=== PATIENT | female | born 1945 | race Caucasian/White ===

== ENCOUNTER 2020-09-19 10:11 | Outpatient (REF) | payer MEDICARE, SELFPAY | END 2020-09-19 10:12 | disposition home or self-care (01) | LOC: HO.LAB 10:11 | PROVIDERS: PCP Internal Medicine; Visit Provider Internal Medicine | DX: Z20.828 Contact with and (suspected) exposure to other viral communicable diseases (principal) | CPT/HCPCS: C9803; U0003 ==

== ENCOUNTER → 2020-10-20 10:11 | Outpatient (BNVA) | payer MEDICARE, SELFPAY | PROVIDERS: PCP Internal Medicine; Visit Provider Hospitalist | DX: R91.8 Other nonspecific abnormal finding of lung field (principal); J41.8 Mixed simple and mucopurulent chronic bronchitis; J30.9 Allergic rhinitis, unspecified | CPT/HCPCS: 99212 ==

== ENCOUNTER → 2020-11-18 10:33 | Outpatient (BNVA) | payer MEDICARE, SELFPAY | PROVIDERS: PCP Internal Medicine; Visit Provider Hospitalist | DX: J44.9 Chronic obstructive pulmonary disease, unspecified (principal); R91.8 Other nonspecific abnormal finding of lung field; F51.01 Primary insomnia; Z79.899 Other long term (current) drug therapy | CPT/HCPCS: 99212 ==

== ENCOUNTER 2021-03-02 08:54 | Outpatient (REF) | payer MEDICARE, SELFPAY ==
--- NOTE | ~2021-03-02 | CT_ITS ---
EXAMINATION: CT CHEST WITHOUT CONTRAST CLINICAL INFORMATION: Other nonspecific finding lung field COMPARISON: None TECHNIQUE: Multidetector volumetric CT imaging of the chest was done. Axial MIP volume rendering provided. Sagittal and coronal reformatted images were obtained. This CT examination was performed using dose optimization techniques as appropriate, variously including the following: *Automated exposure control *Adjustment of mA and/or kV according to patient size (this includes techniques or standardized protocols for targeted exams where dose is matched to indication/reason for exam; i.e. extremities or head) *Use of iterative reconstruction technique DLP: 145 mGy-cm FINDINGS: REDUCING SYSTEM OPERATOR: Unremarkable LUNGS: There is a 2 mm left upper lobe nodule axial image 136 series 5. There is a 2 mm peripheral or subpleural superior segment left lower lobe nodule axial image 136 series 5. There is a 5 mm slightly spiculated right upper lobe nodule axial image 201 series 5. There is a 4 mm superior segment left lower lobe nodule axial image 202 series 5. There is a 3 mm right upper lobe nodule axial image 93 series 5. There is a 4 x 3 mm superior segment right lower lobe nodule axial image 195 series 5. There is a 3 x 5 mm superior segment left lower lobe nodule axial image 201 series 5. There is a 2 mm central left lower lobe nodule axial image 266 series 5. There is a 2 mm peripheral right lower lobe nodule axial image 273 series 5. There is a 3 mm peripheral left lower lobe nodule axial image 98 series 5. There is a 2 mm right lower lobe nodule axial image 310 series 5. There is a 2 mm peripheral or subpleural right lower lobe nodule axial image 331 series 5. There is a 2 mm peripheral right lower lobe nodule axial image 364 series 5. MEDIASTINUM: The heart does not appear enlarged. There is mild calcification of the thoracic aorta. Coronary artery calcification is seen. There is a small pericardial effusion. There are small mediastinal lymph nodes. PLEURA: There is no pleural effusion. No pleural mass or thickening. AXILLA: There is bilateral axillary lymphadenopathy. Lymph nodes have fatty moncho. No chest wall mass is seen. UPPER ABDOMEN: There is a 2 x 2.3 cm low-attenuation lesion in the spleen. Hounsfield units without contrast measure 22 which is not compatible with a simple cyst. OSSEOUS STRUCTURES: There are degenerative changes of the spine. There is a slight loss of height of the T12 T11 and T6 vertebral bodies questionable for mild old compression fractures. There are postsurgical changes to the left occipital humerus. CT/CT chest wo con IMPRESSION: Multiple small bilateral pulmonary nodules, largest measures 5 mm in the right upper lobe. Comparison with old outside exams if available recommended. If no exam old exams are available for comparison, chest CT follow-up in 6-12 months would be recommended. Small pericardial effusion. 2 x 2.3 cm low-attenuation lesion in the spleen not compatible with a simple cyst. Degenerative changes of the spine and several mild old compression fractures.
== END 2021-03-02 08:55 | disposition home or self-care (01) ==
LOC: HO.CT 08:54
PROVIDERS: PCP Internal Medicine; Visit Provider Hospitalist
DX: R91.8 Other nonspecific abnormal finding of lung field (principal)
CPT/HCPCS: 71250

== ENCOUNTER → 2021-05-27 10:01 | Outpatient (BNVA) | payer MEDICARE, SELFPAY | PROVIDERS: PCP Internal Medicine; Visit Provider Hospitalist | DX: J30.9 Allergic rhinitis, unspecified (principal); J41.8 Mixed simple and mucopurulent chronic bronchitis; R91.8 Other nonspecific abnormal finding of lung field; F51.01 Primary insomnia | CPT/HCPCS: 99212 ==

== ENCOUNTER → 2021-09-30 10:27 | Outpatient (BNVA) | payer MEDICARE, SELFPAY | PROVIDERS: PCP Internal Medicine; Visit Provider Hospitalist | DX: J41.8 Mixed simple and mucopurulent chronic bronchitis (principal); R91.8 Other nonspecific abnormal finding of lung field; J30.9 Allergic rhinitis, unspecified; F51.01 Primary insomnia | CPT/HCPCS: 99212 ==

== ENCOUNTER 2021-11-24 09:48 | Outpatient (REF) | payer MEDICARE, SELFPAY ==
--- NOTE | ~2021-11-24 | CT_ITS ---
EXAMINATION: CT CHEST WITHOUT CONTRAST CLINICAL INFORMATION: Follow-up pulmonary nodules COMPARISON: Previous chest CT February 2021 TECHNIQUE: Multidetector volumetric CT imaging of the chest was done. Axial MIP volume rendering provided. Sagittal and coronal reformatted images were obtained. This CT examination was performed using dose optimization techniques as appropriate, variously including the following: *Automated exposure control *Adjustment of mA and/or kV according to patient size (this includes techniques or standardized protocols for targeted exams where dose is matched to indication/reason for exam; i.e. extremities or head) *Use of iterative reconstruction technique DLP: 134 mGy-cm FINDINGS: TRAVEL REGISTERED NURSE NICU: LUNGS: There are multiple small pulmonary nodules. These appear stable from February 2021 exam. Largest right pulmonary nodule measures 5 x 7 mm in the right upper lobe axial image 156 series 6.. Largest left pulmonary nodule measures 3 x 6 mm axial image 155 series 6. No new pulmonary nodule is seen. MEDIASTINUM: There is evidence of atherosclerotic disease. The heart does not appear enlarged. There is interval decrease in the small pericardial effusion. There are no enlarged hilar or mediastinal lymph nodes. PLEURA: There is no pleural effusion. No pleural mass or thickening. AXILLA: There is bilateral axillary lymphadenopathy that appears unchanged. No chest wall mass is seen. UPPER ABDOMEN: 2 x 2.3 cm low-attenuation lesion in the spleen is unchanged. OSSEOUS STRUCTURES: There are degenerative changes of the spine. There is slight loss of height of several lower and mid thoracic vertebral bodies that appear suggestive of mild old compression fractures that appear unchanged. There are degenerative changes at the shoulders. CT/CT chest wo con IMPRESSION: Stable bilateral pulmonary nodules from February 2021 exam. Fleischner guidelines were followed.
== END 2021-11-24 09:49 | disposition home or self-care (01) ==
LOC: HO.CT 09:48
PROVIDERS: PCP Internal Medicine; Visit Provider Hospitalist
DX: R91.8 Other nonspecific abnormal finding of lung field (principal)
CPT/HCPCS: 71250

== ENCOUNTER → 2021-11-29 10:30 | Outpatient (BNVA) | payer MEDICARE, SELFPAY | PROVIDERS: PCP Internal Medicine; Visit Provider Hospitalist | DX: J41.1 Mucopurulent chronic bronchitis (principal); R91.8 Other nonspecific abnormal finding of lung field; J30.9 Allergic rhinitis, unspecified; F51.01 Primary insomnia | CPT/HCPCS: 99212 ==

== ENCOUNTER → 2022-03-29 09:39 | Outpatient (BNVA) | payer MEDICARE, SELFPAY | PROVIDERS: PCP Internal Medicine; Visit Provider Hospitalist | DX: J41.1 Mucopurulent chronic bronchitis (principal); J30.9 Allergic rhinitis, unspecified; R91.8 Other nonspecific abnormal finding of lung field; F51.01 Primary insomnia; Z79.899 Other long term (current) drug therapy | CPT/HCPCS: 99212 ==

== ENCOUNTER 2022-09-02 07:48 | Outpatient (REF) | payer MEDICARE, SELFPAY ==
[2022-09-01 14:34] LABS: Anion Gap 16 (12-20); Blood Urea Nitrogen 13 mg/dL (9-16); Calcium 9.8 mg/dL (8.4-10.2); Carbon Dioxide 30 mmol/L (22-29); Chloride 100 mmol/L (96-108); Estimated Glomerular Filt Rate > 60; Glucose Random 113 mg/dL (60-115); Potassium 3.6 mmol/L (3.3-5.1); Sodium 142 mmol/L (135-145)
--- NOTE | ~2022-09-02 | CT_ITS ---
EXAMINATION: CT CHEST WITH CONTRAST CLINICAL INFORMATION: Pulmonary nodule COMPARISON: CT chest 11/24/2021 TECHNIQUE: Multidetector volumetric CT imaging of the chest was obtained after the administration of 50 mL of Omnipaque 350 intravenous contrast without immediate adverse reactions. Axial MIP volume rendering provided. Sagittal and coronal reformatted images were obtained. This CT examination was performed using dose optimization techniques as appropriate, variously including the following: *Automated exposure control *Adjustment of mA and/or kV according to patient size (this includes techniques or standardized protocols for targeted exams where dose is matched to indication/reason for exam; i.e. extremities or head) *Use of iterative reconstruction technique DLP: 134 mGy-cm FINDINGS: AUTOMATIC WHEEL LINE OPERATOR: Unremarkable. LUNGS: The lungs are well-expanded with multiple pulmonary nodules. The largest) nodule measures 7 mm on axial image 57/9 and largest nodule in the left lower lobe measures 6 mm on axial image 65/9. Both these nodules are stable. Largest nodule right lower lobe measures 6 mm on axial image 88/9. It is stable as well. There are no new nodules seen. MEDIASTINUM: The thyroid lobes are asymmetrical right lateral left but otherwise unremarkable. The central trachea and the bronchi widely patent. The heart size and great vessels are normal caliber. PLEURA: There is no pleural effusion. No pleural mass or thickening. AXILLA: There are small shotty lymph nodes in the axilla. The chest wall is unremarkable. UPPER ABDOMEN: The liver is diffusely attenuated but normal size. There is no intrahepatic or extrahepatic ductal dilatation. The pancreas unremarkable. There is a 2.4 cm low-attenuation lesion in spleen, stable. OSSEOUS STRUCTURES: There is exaggerated thoracic kyphosis with moderate spondylosis lower dorsal spine. No aggressive lytic or sclerotic process seen.. CT/CT chest w IV con IMPRESSION: 1. Multiple bilateral pulmonary nodules are stable. No new nodules seen. 2. No abnormal mediastinal or axillary lymph nodes seen. Fleischner guidelines were followed.
== END 2022-09-02 07:49 | disposition home or self-care (01) ==
LOC: HO.CT 07:48
PROVIDERS: Visit Provider Hospitalist
DX: R91.8 Other nonspecific abnormal finding of lung field (principal)
CPT/HCPCS: 36415; 71260; 80048; Q9967

== ENCOUNTER 2022-11-16 09:44 | Outpatient (REF) | payer MEDICARE, SELFPAY ==
--- NOTE | ~2022-11-16 | CT_ITS ---
EXAMINATION: CT CHEST WITHOUT CONTRAST CLINICAL INFORMATION: Follow-up pulmonary nodules. COMPARISON: Prior chest CT examinations as remote as 03/03/2021. TECHNIQUE: Multidetector volumetric CT imaging of the chest was done. Axial MIP volume rendering provided. Sagittal and coronal reformatted images were obtained. This CT examination was performed using dose optimization techniques as appropriate, variously including the following: *Automated exposure control *Adjustment of mA and/or kV according to patient size (this includes techniques or standardized protocols for targeted exams where dose is matched to indication/reason for exam; i.e. extremities or head) *Use of iterative reconstruction technique DLP: 139 mGy-cm FINDINGS: BAR CAPTAIN: The lungs are symmetrically well-expanded and grossly clear. LUNGS: Multiple bilateral pulmonary noncalcified nodules are redemonstrated. The largest within the right upper lobe is situated in the posterior segment laterally (5:159), measuring 6 mm. The largest nodule within the right middle lobe is situated within the medial segment (5:354), measuring 4 mm. The largest nodule within the right lower lobe is situated within the superior segment (5:256), measuring 6 mm. The largest nodule within the left upper lobe is situated laterally (2:111), measuring 5 mm. The largest nodule situated within the left lower lobe is seen within the superior segment (5:179), measuring 6 mm. Overall, these nodules are stable from prior CT examinations as remote as 03/02/2021. No new nodule, mass, infiltrate or groundglass opacity is seen. There is no generalized increase in peripheral interlobular septal markings. No bleb or bullous formation is seen. There is mild focal scar/subsegmental atelectasis at the medial right base. No small airway thickening is seen. The central airways appear patent. MEDIASTINUM: The thyroid is unremarkable. No sizable mediastinal or hilar lymphadenopathy is seen. There is no thoracic aortic aneurysm. There are atherosclerotic calcifications of the great vessel origins and thoracic aorta. CORONARY ARTERY CALCIFICATION: None visualized on this study. PLEURA: There is no pleural effusion. No pleural mass or thickening. AXILLA: No lymphadenopathy. UPPER ABDOMEN: Unremarkable. OSSEOUS STRUCTURES: There is multi-level thoracic spondylosis. There is a mild T11 anterior wedge compression fracture again seen. No acute or aggressive osseous abnormality is seen. A sclerotic, well marginated bone island is seen within the anterior left fifth rib. There is an old, healed right fifth rib fracture. No acute or aggressive osseous abnormality is seen. CT/CT chest wo IV con IMPRESSION: 1. There is a continued stable appearance from 03/02/2021 of multiple bilateral noncalcified pulmonary nodules, the largest nodules bilaterally measure 6 months. According to the UPDATED 2017 Fleischner Society recommendations, the advised follow-up imaging for multiple solid nodules, the largest measuring 6 mm or greater, is: LOW RISK PATIENT: CT at 3-6 months, then consider CT at 18-24 months. HIGH RISK PATIENT: CT at 3-6 months, then at 18-24 months. 2. No new nodule, mass, infiltrate or groundglass opacity is seen. 3. There is no thoracic lymphadenopathy or pleural effusion. 4. There are multi-level degenerative changes of the spine. No aggressive osseous lesion is seen. Fleischner guidelines were followed.
== END 2022-11-16 09:45 | disposition home or self-care (01) ==
LOC: HO.CT 09:44
PROVIDERS: PCP Internal Medicine; Visit Provider Hospitalist
DX: R91.8 Other nonspecific abnormal finding of lung field (principal)
CPT/HCPCS: 71250

== ENCOUNTER → 2022-11-29 10:01 | Outpatient (BNVA) | payer MEDICARE, SELFPAY | PROVIDERS: PCP Internal Medicine; Visit Provider Hospitalist | DX: J44.0 Chronic obstructive pulmonary disease with (acute) lower respiratory infection (principal); J30.9 Allergic rhinitis, unspecified; R91.8 Other nonspecific abnormal finding of lung field; F51.01 Primary insomnia | CPT/HCPCS: 99212 ==

== ENCOUNTER → 2023-01-09 10:13 | Outpatient (REF) | payer MEDICARE, SELFPAY ==
--- NOTE | 2023-01-09 10:58 | ECG_ITS ---
Test Reason : copd Blood Pressure : / mmHG Vent. Rate : 098 BPM Atrial Rate : 098 BPM P-R Int : 174 ms QRS Dur : 102 ms QT Int : 360 ms P-R-T Axes : 064 -31 071 degrees QTc Int : 459 ms Normal sinus rhythm Left axis deviation Minimal voltage criteria for LVH, may be normal variant ( [place] product ) Abnormal ECG No previous ECGs available Referred By: Oleg Cline Electronically Signed By:SANJIV NEVES
== END ==
LOC: HO.CARD 10:13
PROVIDERS: PCP Internal Medicine; Visit Provider Hospitalist
DX: J44.9 Chronic obstructive pulmonary disease, unspecified (principal)
CPT/HCPCS: 93005; 99212

== ENCOUNTER 2023-05-16 15:22 | Outpatient (AMB) | payer MEDICARE, MEDICAID, SELFPAY ==
[2023-05-16 15:48] VITALS: PULSE 89; O2SAT 96; BMI 32.9
--- NOTE | 2023-05-16 15:48 | A.OFFVIS_ITS ---
Intake Vital Signs 05/16/23 15:48 Height 5 ft 1 in Weight 174 lb BMI 32.9 Pulse 89 Pulse Source Pulse Oximeter Pulse Oximetry (%) 96 Oxygen Delivery Method Room Air Intake Visit Reasons: productive cough Lace Machine Operator Required: No Allergies doxycycline Allergy (Severe, Verified 05/16/23 15:50) GI Upset Demerol Allergy (Severe, Uncoded 05/16/23 15:50) vomitting Meperidine Allergy (Severe, Uncoded 05/16/23 15:50) Dry Mouth HPI HPI Comments History of Present Illness Details The patient is a 77-year-old woman with known chronic bronchitis in addition to reflux disease and chronic pain issues. Overall she has been doing fairly well on it current respiratory regimen. She has been able to stay healthy and stay off prednisone. She has been using the azithromycin Monday and Monday. Usually 250 mg. Sometimes when she gets sick we do increased to 500. Patient understands that the medication get effect her EKG and assess her QT. Therefore, during the next visit will have to check her EKG. She continues using Daliresp. Denies any GI symptoms from the medication. She continues her respiratory therapy. She has not had to take any prednisone. She did have a CT chest back in 03/2019 with numerous pulmonary nodules. 11/29/2022 the patient is here for a pulmonary follow-up visit. She has been complaining of a worsening productive cough now for the last few months. She was seen by primary care doctor who prescribed her prednisone and she did feel better. The the patient is coughing up some thick tenacious sticky mucus which appears to be grayish in color. She does have a sputum cup in order to sent for culture but she has been able to colic 1 appropriately. She keeps coughing up into tissue paper. The patient also did undergo a CT scan of the chest that was personally reviewed by me. She just had a couple weeks ago. Her pulmonary nodules continue to be stable. She does have evidence of chronic bronchitis consistent with her productive mucus it is primarily in the lower lung zones. Appears to be left more than right. Will go ahead and treat her with Levaquin in order to cover enteric organisms. Also, she can also start a new course of prednisone. The patient has not been using her nebulizer. She understands the nebulizer will provide her with good chest physical therapy. I am also going to request an Acapella valve for her for mucus clearance and pulmonary hygiene. If the patient is not better then getting a sputum sample be helpful. Otherwise we did talk about briefly about bronchoscopy to further address the airways get some deep cultures. She would like to hold off on any semi invasive procedures at this time. 01/09/2023 the patient is here for a pulmonary follow-up visit. She is feeling better overall. She still has a cough. Typically productive. She completed the prednisone also the Levaquin. She is back on the azithromycin 3 times a week. Will keep her on the 500 mg 3 times a week. Although, she needs to get an EKG to make sure that her QT is within normal limits. She continues with respiratory therapy. Her exam is reassuring. In addition to that her CT scan is also reassuring with stable pulmonary nodules. No evidence of any airspace disease. It is likely that a lot of her secretions are from the sinuses. Therefore we talked about starting sinus rinses and also using nasal sprays. The patient also has having significant daytime drowsiness. She has not been using her CPAP. She has had history CPAP in the past. Her daytime drowsiness is significant with an [place] score 12/24. Will go ahead and request a sleep study but will wait to when she comes back in 6 months to order. If the patient worsens prior to that and she was been to all the sleep study I will do that at an earlier time. 05/16/2023 the patient is here for a sick visit. She has been having worsening respiratory symptoms and wheezing. She was back here in December and during that time she did have significant chest tightness and wheezing and she did require steroids. she did find the prednisone down when she came off the prednisone again she had symptoms she went to her primary care doctor started another course of prednisone. Now she is back she still has a worsening respiratory symptoms and cough. She has been doing the nebulizer regularly in addition to this has been using her rescue therapy. She has been using her maintenance therapy only with minimal improvement. She has also been on the azithromycin. The patient does have a history of asthma. Will go ahead and test her allergy in eosinophilic level to see if there is a different alternative therapy that we can provide her. In the meantime the patient will need additional prednisone as she is significantly wheezy P she did have a CT scan back in November which we personally reviewed demonstrating stable pulmonary nodules. Therefore, hold off on additional imaging at this point unless she worsens or does not improve will go ahead and get another x-ray. The patient will undergo allergy testing will follow-up in 3-4 weeks to see if we can provide a biologic therapies if she specially if she is not any better. [facility] Medical History (Updated 05/16/23 @ 21:11 by Oleg Cline MD) Asthma Chronic allergic rhinitis COPD (chronic obstructive pulmonary disease) Insomnia Pulmonary nodules Social History (Updated 11/29/21 @ 10:41 by JAZZMINE Walters) Patient Tobacco Use Status: Former Tobacco user Tobacco use type: Cigarette Years Smoked: 45 Years Review of Systems Const Reports fatigue and Denies night sweats ENT Denies change in voice, Denies lip swelling, Denies mouth pain, Reports nasal congestion, Reports nasal discharge, Reports post nasal drip and Denies tongue swelling Card Denies chest pain, Reports dyspnea and Reports dyspnea on exertion Resp Denies change in phlegm color, Reports chest congestion, Reports cough, Denies hemoptysis, Reports dyspnea, Reports dyspnea on exertion and Reports wheezing GI Denies abdominal pain Musc Denies no additional complaints, Reports muscle weakness and Reports numbness Neuro Denies Neuro-related abnormal movements and Reports numbness Psych Denies no additional complaints Endo Reports fatigue Harman/Lymph Denies easy bleeding and Denies lymphadenopathy Aller/Immun Denies lip swelling, Denies tongue swelling and Reports wheezing Physical Exam Vital Signs: Last Vital Signs Pulse 89 05/16/23 15:48 Pulse Ox 96 05/16/23 15:48 Oxygen Delivery Method Room Air 05/16/23 15:48 BMI result Body Mass Index 32.9 Const General: alert and tired appearing HEENT General nose exam: Abnormal mucous membranes and turbinates present erythematous and other (papules) Eyes Pupils: Equal, round and reactive pupils present Neck Neck: Yes normal visual inspection, Yes full ROM and Yes no lymphadenopathy Chest Chest palpation & inspection: normal inspection of the chest Resp Auscultation: no rhonchi, wheezes and diminished lung sounds Cardio Rate: regular rate Rhythm: regular rhythm Heart sounds: S1 normal heart sound present and S2 normal heart sound present GI Palpation (GI): Soft to palpation and nontender Auscultation: normal bowel sounds General: Yes no CVA tenderness Back/Spine/Pelvis Back: no CVA tenderness Skin General skin exam: rashes and/or lesions noted Neuro Cranial nerves: Yes Equal, round and reactive pupils present Assessment & Plan Assessment & Plan (1) Asthma: Code(s): J45.909 - Unspecified asthma, uncomplicated Qualifiers: Asthma severity: severe Asthma persistence: persistent Asthma complication type: with acute exacerbation Qualified Code(s): J45.51 - Severe persistent asthma with (acute) exacerbation (2) COPD (chronic obstructive pulmonary disease): Code(s): J44.9 - Chronic obstructive pulmonary disease, unspecified Qualifiers: COPD type: COPD with acute lower respiratory infection Qualified Code(s): J44.0 - Chronic obstructive pulmonary disease with (acute) lower respiratory infection (3) Chronic allergic rhinitis: Code(s): J30.9 - Allergic rhinitis, unspecified (4) Pulmonary nodules: Code(s): R91.8 - Other nonspecific abnormal finding of lung field (5) Insomnia: Code(s): G47.00 - Insomnia, unspecified Qualifiers: Insomnia type: primary Qualified Code(s): F51.01 - Primary insomnia Plan nebulizer 2 times a day Add BUdeonide 0.5mg BID Restrat Prednisone Bloodwork and allergy testing, may benifit from biologic therapy requesting acapella valve for CPT Continue Symbicort and Spiriva, Also can try Trelegy 200mcg nasal rinsing Fluticasone nasal spray STEPAN as needed short-acting beta agonist as needed holding Azithromycin 500mg M/W/, will get EKG start Augmentin repeat CT scan of the chest in 11/2023 F/U 4-6 weeks Orders: Orders Rast Allergen Today J30.9 - Allergic rhinitis, unspecified, J45.909 - Unspecified asthma, uncomplicated Basic Metabolic Panel Today J30.9 - Allergic rhinitis, unspecified, J45.909 - Unspecified asthma, uncomplicated Complete Blood Count Auto Diff Today J30.9 - Allergic rhinitis, unspecified, J45.909 - Unspecified asthma, uncomplicated Hypersensitive Pneumonitis Prf Today J30.9 - Allergic rhinitis, unspecified, J45.909 - Unspecified asthma, uncomplicated, R91.8 - Other nonspecific abnormal finding of lung field Immunoglobulin E Today J30.9 - Allergic rhinitis, unspecified, J45.909 - Unspecified asthma, uncomplicated Immunoglobulins,IgG IgA IgM Today J30.9 - Allergic rhinitis, unspecified, J45.909 - Unspecified asthma, uncomplicated Medications: New amoxicillin-pot clavulanate 875-125 mg 1 tab PO BID 10 days 20 tabs 0RF prednisone PO daily; Take 2 tabs daily x 10 days, then 1 tab daily x 10 days, then 1 tab every other day x 20 days 40 days 40 tabs 0RF Coding Level of Care Code Est Pt Level 5 (89793) Diagnoses Asthma J45.51 Asthma severity: severe Asthma persistence: persistent Asthma complication type: with acute exacerbation COPD (chronic obstructive pulmonary disease) J44.0 COPD type: COPD with acute lower respiratory infection Chronic allergic rhinitis J30.9 Pulmonary nodules R91.8 Insomnia F51.01 Insomnia type: primary Time Spent (min) 45
== END 2023-05-16 16:14 | disposition home or self-care (01) ==
PROVIDERS: PCP Internal Medicine; Visit Provider Hospitalist
DX: J45.51 Severe persistent asthma with (acute) exacerbation (principal); R91.8 Other nonspecific abnormal finding of lung field; F51.01 Primary insomnia
CPT/HCPCS: 99215

== ENCOUNTER 2023-05-16 15:22 | Outpatient (REF) | payer MEDICARE, MEDICAID, SELFPAY ==
[2023-05-16 16:33] LABS: MANUAL DIFF FLAG NO
[2023-05-16 18:00] LABS: Basophils Absolute Auto 0.1 X10*3/uL (0.0-0.2); Basophils Percent Auto 0.9 % (0-2); Eosinophils Absolute Auto 0.5 X10*3/uL (0.0-0.4); Eosinophils Percent Auto 7.1 % (0-4); Hematocrit 41.6 % (37.0-47.0); Hemoglobin 13.9 g/dl (12.0-16.0); Imm Gran Abs Auto 0.03 X10*3/uL (0.00-0.03); Imm Gran Pct Auto 0.5 % (0.0-0.4); Lymphocytes Absolute Auto 1.8 X10*3/uL (1.2-4.9); Lymphocytes Percent Auto 26.5 % (20-40); Mean Corpuscular HGB Conc 33.4 g/dl (31.0-35.0); Mean Corpuscular Hemoglobin 28.7 pg (27.0-33.0); Mean Platelet Volume 10.2 fL (9.4-12.3); Monocytes Absolute Auto 0.5 X10*3/uL (0.1-1.2); Monocytes Percent Auto 8.1 % (2-11); Neutrophils Absolute Auto 3.8 x10*3/uL (2.0-8.3); Neutrophils Percent Auto 56.9 % (45-73); Platelet Count 280 X10*3/uL (160-400); Red Blood Count 4.84 X10*6/uL (4.20-5.50); Red Cell Distribution Width 13.1 % (11.0-16.0); White Blood Count 6.6 X10*3/uL (4.8-10.8)
[2023-05-16 18:44] LABS: Anion Gap 17 (12-20); Blood Urea Nitrogen 8 mg/dL (9-16); Calcium 10.1 mg/dL (8.4-10.2); Carbon Dioxide 31 mmol/L (22-29); Chloride 99 mmol/L (96-108); Estimated Glomerular Filt Rate > 60; Glucose Random 79 mg/dL (60-115); Potassium 3.3 mmol/L (3.3-5.1); Sodium 144 mmol/L (135-145)
[2023-05-19 07:32] LABS: Immunoglobulin E 17 kU/L (<OR=114)
[2023-05-22 15:43] LABS: IgA 177 mg/dL (70-320); IgG 661 mg/dL (600-1540); IgM 83 mg/dL (50-300)
[2023-05-25 14:33] LABS: Asperg fumigatus Precip Abs NEGATIVE (NEGATIVE); Micropoly faeni Abs NEGATIVE (NEGATIVE); Pigeon serum Abs NEGATIVE (NEGATIVE); Saccharo pora viridis Abs NEGATIVE (NEGATIVE); Thermo candidus Abs NEGATIVE (NEGATIVE); Thermoa vulgaris #1 NEGATIVE (NEGATIVE)
== END 2023-05-16 15:23 | disposition home or self-care (01) ==
LOC: HO.LAB 15:22
PROVIDERS: PCP Internal Medicine; Visit Provider Hospitalist
DX: J45.51 Severe persistent asthma with (acute) exacerbation (principal); J44.0 Chronic obstructive pulmonary disease with (acute) lower respiratory infection; J30.9 Allergic rhinitis, unspecified; R91.8 Other nonspecific abnormal finding of lung field; F51.01 Primary insomnia
CPT/HCPCS: 36415; 80048; 82784; 82785; 85025; 86003; 86331; 86606; 86609; 99212

== ENCOUNTER 2023-06-22 10:06 | Outpatient (AMB) | payer MEDICARE, MEDICAID, SELFPAY ==
[2023-06-22 10:32] VITALS: PULSE 73; O2SAT 93; BMI 34.8
--- NOTE | 2023-06-22 10:32 | A.OFFVIS_ITS ---
Intake Vital Signs 06/22/23 10:32 Height 5 ft 1 in Weight 184 lb BMI 34.8 Pulse 73 Pulse Source Pulse Oximeter Pulse Oximetry (%) 93 Oxygen Delivery Method Room Air Intake Visit Reasons: productive cough Allergies doxycycline Allergy (Severe, Verified 06/22/23 10:33) GI Upset Demerol Allergy (Severe, Uncoded 06/22/23 10:33) vomitting Meperidine Allergy (Severe, Uncoded 06/22/23 10:33) Dry Mouth HPI HPI Comments History of Present Illness Details The patient is a 77-year-old woman with known chronic bronchitis in addition to reflux disease and chronic pain issues. Overall she has been doing fairly well on it current respiratory regimen. She has been able to stay healthy and stay off prednisone. She has been using the azithromycin Monday and Monday. Usually 250 mg. Sometimes when she gets sick we do increased to 500. Patient understands that the medication get effect her EKG and assess her QT. Therefore, during the next visit will have to check her EKG. She continues using Daliresp. Denies any GI symptoms from the medication. She continues her respiratory therapy. She has not had to take any prednisone. She did have a CT chest back in 03/2019 with numerous pulmonary nodules. 11/29/2022 the patient is here for a pulmonary follow-up visit. She has been complaining of a worsening productive cough now for the last few months. She was seen by primary care doctor who prescribed her prednisone and she did feel better. The the patient is coughing up some thick tenacious sticky mucus which appears to be grayish in color. She does have a sputum cup in order to sent for culture but she has been able to colic 1 appropriately. She keeps coughing up into tissue paper. The patient also did undergo a CT scan of the chest that was personally reviewed by me. She just had a couple weeks ago. Her pulmonary nodules continue to be stable. She does have evidence of chronic b ronchitis consistent with her productive mucus it is primarily in the lower lung zones. Appears to be left more than right. Will go ahead and treat her with Levaquin in order to cover enteric organisms. Also, she can also start a new course of prednisone. The patient has not been using her nebulizer. She understands the nebulizer will provide her with good chest physical therapy. I am also going to request an Acapella valve for her for mucus clearance and pulmonary hygiene. If the patient is not better then getting a sputum sample be helpful. Otherwise we did talk about briefly about bronchoscopy to further address the airways get some deep cultures. She would like to hold off on any semi invasive procedures at this time. 01/09/2023 the patient is here for a pulmonary follow-up visit. She is feeling better overall. She still has a cough. Typically productive. She completed the prednisone also the Levaquin. She is back on the azithromycin 3 times a week. Will keep her on the 500 mg 3 times a week. Although, she needs to get an EKG to make sure that her QT is within normal limits. She continues with respiratory therapy. Her exam is reassuring. In addition to that her CT scan is also reassuring with stable pulmonary nodules. No evidence of any airspace disease. It is likely that a lot of her secretions are from the sinuses. Therefore we talked about starting sinus rinses and also using nasal sprays. The patient also has having significant daytime drowsiness. She has not been using her CPAP. She has had history CPAP in the past. Her daytime drowsiness is significant with an Clarissa score 12/24. Will go ahead and request a sleep study but will wait to when she comes back in 6 months to order. If the patient worsens prior to that and she was been to all the sleep study I will do that at an earlier time. 05/16/2023 the patient is here for a sick visit. She has been having worsening respiratory symptoms and wheezing. She was back here in December and during that time she did have significant chest tightness and wheezing and she did require steroids. she did find the prednisone down when she came off the prednisone again she had symptoms she went to her primary care doctor started another course of prednisone. Now she is back she still has a worsening respiratory symptoms and cough. She has been doing the nebulizer regularly in addition to this has been using her rescue therapy. She has been using her maintenance therapy only with minimal improvement. She has also been on the azithromycin. The patient does have a history of asthma. Will go ahead and test her allergy in eosinophilic level to see if there is a different alternative therapy that we can provide her. In the meantime the patient will need additional prednisone as she is significantly wheezy P she did have a CT scan back in November which we personally reviewed demonstrating stable pulmonary nodules. Therefore, hold off on additional imaging at this point unless she worsens or does not improve will go ahead and get another x-ray. The patient will undergo allergy testing will follow-up in 3-4 weeks to see if we can provide a biologic therapies if she specially if she is not any better. 06/22/2023 the patient is here for pulmonary follow-up visit. She continues to struggle with her asthma. Significant wheezing. Her symptoms have been worse at nighttime. She typically needs to get up a few times a night to give her some albuterol either via inhaler or nebulizer. The patient also has been using her respiratory medications with good adherence. She still continues to be on prednisone off and on because of severe symptoms. Currently she is on 10 mg every other day and has been having significant wheezing. On examination is noted that she has diffuse inspiratory and expiratory wheezing with a prolonged expiratory phase. The patient will need additional prednisone. I will increase it to 10 mg daily. I am hopeful that we can find the lowest most effective dose until we can get her stable. We did review her allergy testing. She does have significant eosinophilia. The patient has an asthma eosinophilic phenotype. The patient will benefit from biologic therapy at this time. Based on the fact that her IgE level is within normal limits will treat her with an IL 5 inhibitor such as Fasenra. Will request from that the specialty pharmacy. The patient also will start Trelegy inhaler to see if this provides more broader coverage. Although this may be expensive for her. She is also going to continue with the nebulized therapy. With the additional prednisone the patient will also continue the budesonide but I am hopeful that when she starts biologics we can start cutting down on the inhaled steroids and systemic steroids. [facility] Medical History (Updated 05/16/23 @ 21:11 by Oleg Cline MD) Asthma Insomnia Chronic allergic rhinitis COPD (chronic obstructive pulmonary disease) Pulmonary nodules Social History (Updated 11/29/21 @ 10:41 by JAZZMINE Walters) Patient Tobacco Use Status: Former Tobacco user Tobacco use type: Cigarette Years Smoked: 45 Years Review of Systems Const Reports fatigue and Denies night sweats ENT Denies change in voice, Denies lip swelling, Denies mouth pain, Reports nasal congestion, Reports nasal discharge, Reports post nasal drip and Denies tongue swelling Card Denies chest pain, Reports dyspnea and Reports dyspnea on exertion Resp Denies change in phlegm color, Reports chest congestion, Reports cough, Denies hemoptysis, Reports dyspnea, Reports dyspnea on exertion and Reports wheezing GI Denies abdominal pain Musc Denies no additional complaints, Reports muscle weakness and Reports numbness Neuro Denies Neuro-related abnormal movements and Reports numbness Psych Denies no additional complaints Endo Reports fatigue Harman/Lymph Denies easy bleeding and Denies lymphadenopathy Aller/Immun Denies lip swelling, Denies tongue swelling and Reports wheezing Physical Exam Vital Signs: Last Vital Signs Pulse 73 06/22/23 10:32 Pulse Ox 93 06/22/23 10:32 Oxygen Delivery Method Room Air 06/22/23 10:32 BMI result Body Mass Index 34.8 Const General: alert and tired appearing HEENT General nose exam: Abnormal mucous membranes and turbinates present erythematous and other (papules) Eyes Pupils: Equal, round and reactive pupils present Neck Neck: Yes normal visual inspection, Yes full ROM and Yes no lymphadenopathy Chest Chest palpation & inspection: normal inspection of the chest Resp Effort & Inspection: prolonged expiratory phase Auscultation: no rhonchi, wheezes and diminished lung sounds Cardio Rate: regular rate Rhythm: regular rhythm Heart sounds: S1 normal heart sound present and S2 normal heart sound present GI Palpation (GI): Soft to palpation and nontender Auscultation: normal bowel sounds General: Yes no CVA tenderness Back/Spine/Pelvis Back: no CVA tenderness Skin General skin exam: rashes and/or lesions noted Neuro Cranial nerves: Yes Equal, round and reactive pupils present Assessment & Plan Assessment & Plan (1) Asthma: Code(s): J45.909 - Unspecified asthma, uncomplicated Qualifiers: Asthma complication type: with acute exacerbation Asthma persistence: persistent Asthma severity: severe Qualified Code(s): J45.51 - Severe persistent asthma with (acute) exacerbation (2) COPD (chronic obstructive pulmonary disease): Code(s): J44.9 - Chronic obstructive pulmonary disease, unspecified Qualifiers: COPD type: COPD with acute lower respiratory infection Qualified Code(s): J44.0 - Chronic obstructive pulmonary disease with (acute) lower respiratory infection (3) Chronic allergic rhinitis: Code(s): J30.9 - Allergic rhinitis, unspecified (4) Pulmonary nodules: Code(s): R91.8 - Other nonspecific abnormal finding of lung field (5) Insomnia: Code(s): G47.00 - Insomnia, unspecified Qualifiers: Insomnia type: primary Qualified Code(s): F51.01 - Primary insomnia Plan nebulizer 2 times a day continue BUdeonide 0.5mg BID increase Prednisone 10mg daily start fasenra requesting acapella valve for CPT stop Symbicort and Spiriva start Trelegy 200mcg nasal rinsing Fluticasone nasal spray STEPAN as needed short-acting beta agonist as needed holding Azithromycin 500mg M/W/F repeat CT scan of the chest in 11/2023 F/U 8-12 weeks Medications: New codeine-guaifenesin 10-100 mg/5 mL 10 mL PO Q6H 10 days PRN 300 mL 0RF cough pipxnvftfut-ktcnygopg-uekitqvu 200-62.5-25 mcg (Trelegy Ellipta) 1 inh inhalation DAILY 30 days 60 ea 12RF prednisone 20 mg (2 x 10 mg) PO DAILY 30 days 60 tabs 2RF Coding Level of Care Code Est Pt Level 4 (77899) Diagnoses Severe persistent asthma with acute exacerbation J45.51 Asthma complication type: with acute exacerbation Asthma persistence: persistent Asthma severity: severe Chronic obstructive pulmonary disease with acute lower respiratory infection J44.0 COPD type: COPD with acute lower respiratory infection Chronic allergic rhinitis J30.9 Pulmonary nodules R91.8 Primary insomnia F51.01 Insomnia type: primary Time Spent (min) 18
== END 2023-06-22 10:56 | disposition home or self-care (01) ==
PROVIDERS: PCP Internal Medicine; Visit Provider Hospitalist
DX: J45.51 Severe persistent asthma with (acute) exacerbation (principal); J44.0 Chronic obstructive pulmonary disease with (acute) lower respiratory infection; J30.9 Allergic rhinitis, unspecified; R91.8 Other nonspecific abnormal finding of lung field; F51.01 Primary insomnia
CPT/HCPCS: 99214

== ENCOUNTER → 2023-06-22 10:06 | Outpatient (BNVA) | payer MEDICARE, MEDICAID, SELFPAY | PROVIDERS: PCP Internal Medicine; Visit Provider Hospitalist | DX: J45.51 Severe persistent asthma with (acute) exacerbation (principal); J44.0 Chronic obstructive pulmonary disease with (acute) lower respiratory infection; R91.8 Other nonspecific abnormal finding of lung field; G47.00 Insomnia, unspecified; F51.01 Primary insomnia; Z79.52 Long term (current) use of systemic steroids | CPT/HCPCS: 99212 ==

== ENCOUNTER 2023-08-02 08:43 | Outpatient (REF) | payer MEDICARE, MEDICAID, SELFPAY | END 2023-08-02 08:44 | disposition home or self-care (01) | LOC: HO.MDS 08:43 | PROVIDERS: Visit Provider Hospitalist | DX: J45.50 Severe persistent asthma, uncomplicated (principal) | CPT/HCPCS: 96372 ==

== ENCOUNTER 2023-08-29 08:25 | Outpatient (REF) | payer MEDICARE, MEDICAID, SELFPAY | END 2023-08-29 08:26 | disposition home or self-care (01) | LOC: HO.MDS 08:25 | PROVIDERS: Visit Provider Hospitalist | DX: J45.50 Severe persistent asthma, uncomplicated (principal) | CPT/HCPCS: 96372 ==

== ENCOUNTER 2023-09-04 10:20 | Outpatient (AMB) | payer MEDICARE, MEDICAID, SELFPAY ==
--- NOTE | 2023-09-04 10:26 | A.OFFVIS_ITS ---
Intake Vital Signs 09/04/23 10:29 Height 5 ft 1 in Weight 188 lb 7.924 oz BMI 35.6 BP 138/90 H Blood Pressure Location Rt brachial Position Sitting Pulse 109 H Pulse Source Doppler Pulse Oximetry (%) 96 Oxygen Delivery Method Room Air Intake Visit Reasons: productive cough Allergies doxycycline Allergy (Severe, Verified 09/04/23 10:33) GI Upset Demerol Allergy (Severe, Uncoded 09/04/23 10:33) vomitting Meperidine Allergy (Severe, Uncoded 09/04/23 10:33) Dry Mouth HPI HPI Comments History of Present Illness Details The patient is a 78-year-old woman with known chronic bronchitis in addition to reflux disease and chronic pain issues. Overall she has been doing fairly well on it current respiratory regimen. She has been able to stay healthy and stay off prednisone. She has been using the azithromycin Monday and Monday. Usually 250 mg. Sometimes when she gets sick we do increased to 500. Patient understands that the medication get effect her EKG and assess her QT. Therefore, during the next visit will have to check her EKG. She continues using Daliresp. Denies any GI symptoms from the medication. She continues her respiratory therapy. She has not had to take any prednisone. She did have a CT chest back in 03/2019 with numerous pulmonary nodules. 11/29/2022 the patient is here for a pulmonary follow-up visit. She has been complaining of a worsening productive cough now for the last few months. She was seen by primary care doctor who prescribed her prednisone and she did feel better. The the patient is coughing up some thick tenacious sticky mucus which appears to be grayish in color. She does have a sputum cup in order to sent for culture but she has been able to colic 1 appropriately. She keeps coughing up into tissue paper. The patient also did undergo a CT scan of the chest that was personally reviewed by me. She just had a couple weeks ago. Her pulmonary nodules continue to be stable. She does have evidence of chronic bronchitis consistent with her productive mucus it is primarily in the lower lung zones. Appears to be left more than right. Will go ahead and treat her with Levaquin in order to cover enteric organisms. Also, she can also start a new course of prednisone. The patient has not been using her nebulizer. She understands the nebulizer will provide her with good chest physical therapy. I am also going to request an Acapella valve for her for mucus clearance and pulmonary hygiene. If the patient is not better then getting a sputum sample be helpful. Otherwise we did talk about briefly about bronchoscopy to further address the airways get some deep cultures. She would like to hold off on any semi invasive procedures at this time. 01/09/2023 the patient is here for a pulmonary follow-up visit. She is feeling better overall. She still has a cough. Typically productive. She completed the prednisone also the Levaquin. She is back on the azithromycin 3 times a week. Will keep her on the 500 mg 3 times a week. Although, she needs to get an EKG to make sure that her QT is within normal limits. She continues with respiratory therapy. Her exam is reassuring. In addition to that her CT scan is also reassuring with stable pulmonary nodules. No evidence of any airspace disease. It is likely that a lot of her secretions are from the sinuses. Therefore we talked about starting sinus rinses and also using nasal sprays. The patient also has having significant daytime drowsiness. She has not been using her CPAP. She has had history CPAP in the past. Her daytime drowsiness is significant with an Lake score 12/24. Will go ahead and request a sleep study but will wait to when she comes back in 6 months to order. If the patient worsens prior to that and she was been to all the sleep study I will do that at an earlier time. 05/16/2023 the patient is here for a sick visit. She has been having worsening respiratory symptoms and wheezing. She was back here in December and during that time she did have significant chest tightness and wheezing and she did require steroids. she did find the prednisone down when she came off the prednisone again she had symptoms she went to her primary care doctor started another course of prednisone. Now she is back she still has a worsening respiratory symptoms and cough. She has been doing the nebulizer regularly in addition to this has been using her rescue therapy. She has been using her maintenance therapy only with minimal improvement. She has also been on the azithromycin. The patient does have a history of asthma. Will go ahead and test her allergy in eosinophilic level to see if there is a different alternative therapy that we can provide her. In the meantime the patient will need additional prednisone as she is significantly wheezy P she did have a CT scan back in November which we personally reviewed demonstrating stable pulmonary nodules. Therefore, hold off on additional imaging at this point unless she worsens or does not improve will go ahead and get another x-ray. The patient will undergo allergy testing will follow-up in 3-4 weeks to see if we can provide a biologic therapies if she specially if she is not any better. 06/22/2023 the patient is here for pulmonary follow-up visit. She continues to struggle with her asthma. Significant wheezing. Her symptoms have been worse at nighttime. She typically needs to get up a few times a night to give her some albuterol either via inhaler or nebulizer. The patient also has been using her respiratory medications with good adherence. She still continues to be on prednisone off and on because of severe symptoms. Currently she is on 10 mg every other day and has been having significant wheezing. On examination is noted that she has diffuse inspiratory and expiratory wheezing with a prolonged expiratory phase. The patient will need additional prednisone. I will increase it to 10 mg daily. I am hopeful that we can find the lowest most effective dose until we can get her stable. We did review her allergy testing. She does have significant eosinophilia. The patient has an asthma eosinophilic phenotype. The patient will benefit from biologic therapy at this time. Based on the fact that her IgE level is within normal limits will treat her with an IL 5 inhibitor such as Fasenra. Will request from that the specialty pharmacy. The patient also will start Trelegy inhaler to see if this provides more broader coverage. Although this may be expensive for her. She is also going to continue with the nebulized therapy. With the additional prednisone the patient will also continue the budesonide but I am hopeful that when she starts biologics we can start cutting down on the inhaled steroids and systemic steroids. 09/04/2023 the patient is here for a pulmonary follow-up visit. Overall the patient is doing a lot better from the asthma standpoint. She started the Fasenra injections every month and she has noticed that she has been able to be off the prednisone and also stop the nebulized therapy. She does continue with the Trelegy inhaler on a daily basis which is good. She has been able to really improve her respiratory capacity. Will also simplify her respiratory regimen since she is doing better. The patient has been tolerating the injections well without any allergic reactions which is also good. Her biggest complaint is that the follow up mental about what appears to be a pilonidal cyst with drainage. The patient will be started antibiotics and she will follow up with primary care. [facility] Medical History (Updated 09/04/23 @ 21:31 by Oleg Cline MD) Asthma Insomnia Chronic allergic rhinitis COPD (chronic obstructive pulmonary disease) Pulmonary nodules Social History Patient Tobacco Use Status: Former Tobacco user Tobacco use type: Cigarette Years Smoked: 45 Years Review of Systems Const Reports fatigue and Denies night sweats ENT Denies change in voice, Denies lip swelling, Denies mouth pain, Reports nasal congestion, Reports nasal discharge, Reports post nasal drip and Denies tongue swelling Card Denies chest pain, Denies dyspnea and Denies dyspnea on exertion Resp Denies change in phlegm color, Denies chest congestion, Reports cough, Denies hemoptysis, Denies dyspnea, Denies dyspnea on exertion and Denies wheezing GI Denies abdominal pain Musc Denies no additional complaints, Reports muscle weakness and Reports numbness Skin/Breast Reports sores Neuro Denies Neuro-related abnormal movements and Reports numbness Psych Denies no additional complaints Endo Reports fatigue Harman/Lymph Denies easy bleeding and Denies lymphadenopathy Aller/Immun Denies lip swelling, Denies tongue swelling and Denies wheezing Physical Exam Vital Signs: Last Vital Signs Pulse 109 H 09/04/23 10:29 BP 138/90 H 09/04/23 10:29 Pulse Ox 96 09/04/23 10:29 Oxygen Delivery Method Room Air 09/04/23 10:29 BMI result Body Mass Index 35.6 Const General: alert and tired appearing HEENT General nose exam: Abnormal mucous membranes and turbinates present erythematous and other (papules) Eyes Pupils: Equal, round and reactive pupils present Neck Neck: Yes normal visual inspection, Yes full ROM and Yes no lymphadenopathy Chest Chest palpation & inspection: normal inspection of the chest Resp Effort & Inspection: No prolonged expiratory phase Auscultation: clear to auscultation bilaterally, no rhonchi and no wheezes Cardio Rate: regular rate Rhythm: regular rhythm Heart sounds: S1 normal heart sound present and S2 normal heart sound present GI Palpation (GI): Soft to palpation and nontender Auscultation: normal bowel sounds General: Yes no CVA tenderness Back/Spine/Pelvis Back: no CVA tenderness Skin General skin exam: rashes and/or lesions noted Neuro Cranial nerves: Yes Equal, round and reactive pupils present Assessment & Plan Assessment & Plan (1) Asthma: Code(s): J45.909 - Unspecified asthma, uncomplicated Qualifiers: Asthma complication type: uncomplicated Asthma persistence: persistent Asthma severity: severe Qualified Code(s): J45.50 - Severe persistent asthma, uncomplicated (2) Chronic allergic rhinitis: Code(s): J30.9 - Allergic rhinitis, unspecified (3) Pulmonary nodules: Code(s): R91.8 - Other nonspecific abnormal finding of lung field (4) Insomnia: Code(s): G47.00 - Insomnia, unspecified Qualifiers: Insomnia type: primary Qualified Code(s): F51.01 - Primary insomnia Plan nebulizer 2 times a day as needed stop BUdeonide 0.5mg BID stopped Prednisone 10mg daily continue fasenra continue acapella valve for CPT continue Trelegy 200mcg nasal rinsing Fluticasone nasal spray STEPAN as needed short-acting beta agonist as needed repeat CT scan of the chest in 11/2023 F/U 6 months Medications: New amoxicillin-pot clavulanate 875-125 mg 1 tab PO BID 10 days 20 tabs 0RF mupirocin 2% 1 appl topical BID 10 days 15 grams 1RF Coding Level of Care Code Est Pt Level 4 (75665) Diagnoses Severe persistent asthma without complication J45.50 Asthma complication type: uncomplicated Asthma persistence: persistent Asthma severity: severe Chronic allergic rhinitis J30.9 Pulmonary nodules R91.8 Primary insomnia F51.01 Insomnia type: primary Time Spent (min) 16
[2023-09-04 10:29] VITALS: BP 138/90; PULSE 109; O2SAT 96; BMI 35.6
== END 2023-09-04 10:47 | disposition home or self-care (01) ==
PROVIDERS: PCP Internal Medicine; Visit Provider Hospitalist
DX: J45.50 Severe persistent asthma, uncomplicated (principal); J30.9 Allergic rhinitis, unspecified; R91.8 Other nonspecific abnormal finding of lung field; F51.01 Primary insomnia
CPT/HCPCS: 99214

== ENCOUNTER → 2023-09-04 10:20 | Outpatient (BNVA) | payer MEDICARE, MEDICAID, SELFPAY | PROVIDERS: PCP Internal Medicine; Visit Provider Hospitalist | DX: J45.50 Severe persistent asthma, uncomplicated (principal); J30.9 Allergic rhinitis, unspecified; R91.8 Other nonspecific abnormal finding of lung field; F51.01 Primary insomnia | CPT/HCPCS: 99212 ==

== ENCOUNTER 2023-09-26 09:00 | Outpatient (REF) | payer MEDICARE, MEDICAID, SELFPAY | END 2023-09-26 09:01 | disposition home or self-care (01) | LOC: HO.MDS 09:00 | PROVIDERS: PCP Internal Medicine; Visit Provider Hospitalist | DX: J45.50 Severe persistent asthma, uncomplicated (principal) | CPT/HCPCS: 96372 ==

== ENCOUNTER 2023-10-18 10:42 | Outpatient (REF) | payer MEDICARE, MEDICAID, SELFPAY ==
--- NOTE | ~2023-10-18 | CT_ITS ---
EXAMINATION: CT CHEST WITHOUT CONTRAST CLINICAL INFORMATION: Follow-up pulmonary nodules. COMPARISON: Prior CT examinations, most recently 11/16/2022. TECHNIQUE: Multidetector volumetric CT imaging of the chest was done. Axial MIP volume rendering provided. Sagittal and coronal reformatted images were obtained. This CT examination was performed using dose optimization techniques as appropriate, variously including the following: *Automated exposure control *Adjustment of mA and/or kV according to patient size (this includes techniques or standardized protocols for targeted exams where dose is matched to indication/reason for exam; i.e. extremities or head) *Use of iterative reconstruction technique DLP: 160 mGy-cm FINDINGS: LUNGS: Multiple bilateral noncalcified lung nodules are redemonstrated. These are unchanged from 03/02/2021, with dominant bilateral lung nodules described in detail on the report for the CT examination of 11/16/2022. The largest nodule within the right upper lobe is situated within the posterior segment, measuring 6 mm (5:188). The largest nodule within the right middle lobe is situated within the medial segment, measuring 3-4 mm (5:364). The largest nodule within the lower lobe is situated within the superior segment (5:191), measuring 6 mm. The largest nodule within the left upper lobe is situated within the apicoposterior segment laterally, measuring 5 mm (5:230). The largest nodule within the left lower lobe is seen within the superior segment, measuring 6 mm (5:209). No new nodule, mass, infiltrate or ground glass opacity is seen. There is no generalized increase in peripheral interlobular septal markings. There is mild focal atelectasis at the medial right base adjacent to prominent vertebral osteophytes. No small airway thickening is seen. The central airways appear patent. MEDIASTINUM: The thyroid is unremarkable. There is no thoracic aortic aneurysm. There are atherosclerotic calcifications of the great vessel origins and thoracic aorta. No mediastinal or hilar lymphadenopathy is seen. CORONARY ARTERY CALCIFICATION: None visualized on this study. PLEURA: There is no pleural effusion. No pleural mass or thickening. AXILLA: No lymphadenopathy. UPPER ABDOMEN: Unremarkable. OSSEOUS STRUCTURES: There is multi-level marked thoracic and upper lumbar degenerative disc disease and spondylosis. There are stable mild T6 and T11 anterior wedge compression fractures. There are stable benign, sclerotic bone islands noted within the anterior left sixth rib and the T10 posterior elements. No acute or aggressive osseous finding is noted. CT/CT chest wo IV con IMPRESSION: Multiple benign, stable lung nodules are redemonstrated, unchanged from CT examinations including 03/02/2021. These require no imaging follow-up. No new nodule, mass, infiltrate or ground glass opacity is seen. No thoracic lymphadenopathy or pleural effusion is noted. There is no aggressive osseous lesion. According to the UPDATED 2017 Fleischner Society recommendations, the advised follow-up imaging for multiple solid nodules, the largest measuring 6 mm or greater, is: LOW RISK PATIENT: CT at 3-6 months, then consider CT at 18-24 months. HIGH RISK PATIENT: CT at 3-6 months, then at 18-24 months. Fleischner guidelines were followed.
== END 2023-10-18 10:43 | disposition home or self-care (01) ==
LOC: HO.CT 10:42
PROVIDERS: PCP Internal Medicine; Visit Provider Hospitalist
DX: R91.8 Other nonspecific abnormal finding of lung field (principal)
CPT/HCPCS: 71250

== ENCOUNTER 2023-11-10 11:10 | Outpatient (AMB) | payer MEDICARE, MEDICAID, SELFPAY ==
[2023-11-10 11:27] VITALS: BP 132/70; PULSE 88; O2SAT 98; BMI 33.6
--- NOTE | 2023-11-10 11:27 | A.OFFVIS_ITS ---
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 Overall she has been doing fairly well on it current respiratory regimen. She has been able to stay healthy and stay off prednisone. She has been using the azithromycin Monday and Monday. Usually 250 mg. Sometimes when she gets sick we do increased to 500. Patient understands that the medication get effect her EKG and assess her QT. Therefore, during the next visit will have to check her EKG. She continues using Daliresp. Denies any GI symptoms from the medication. She continues her respiratory therapy. She has not had to take any prednisone. She did have a CT chest back in 03/2019 with numerous pulmonary nodules. 11/29/2022 the patient is here for a pulmonary follow-up visit. She has been complaining of a worsening productive cough now for the last few months. She was seen by primary care doctor who prescribed her prednisone and she did feel better. The the patient is coughing up some thick tenacious sticky mucus which appears to be grayish in color. She does have a sputum cup in order to sent for culture but she has been able to colic 1 appropriately. She keeps coughing up into tissue paper. The patient also did undergo a CT scan of the chest that was personally reviewed by me. She just had a couple weeks ago. Her pulmonary nodules continue to be stable. She does have evidence of chronic bronchitis consistent with her productive mucus it is primarily in the lower lung zones. Appears to be left more than right. Will go ahead and treat her with Levaquin in order to cover enteric organisms. Also, she can also start a new course of prednisone. The patient has not been using her nebulizer. She understands the nebulizer will provide her with good chest physical therapy. I am also going to request an Acapella valve for her for mucus clearance and pulmonary hygiene. If the patient is not better then getting a sputum sample be helpful. Otherwise we did talk about briefly about bronchoscopy to further address the airways get some deep cultures. She would like to hold off on any semi invasive procedures at this time. 01/09/2023 the patient is here for a pulmonary follow-up visit. She is feeling better overall. She still has a cough. Typically productive. She completed the prednisone also the Levaquin. She is back on the azithromycin 3 times a week. Will keep her on the 500 mg 3 times a week. Although, she needs to get an EKG to make sure that her QT is within normal limits. She continues with respiratory therapy. Her exam is reassuring. In addition to that her CT scan is also reassuring with stable pulmonary nodules. No evidence of any airspace disease. It is likely that a lot of her secretions are from the sinuses. Therefore we talked about starting sinus rinses and also using nasal sprays. The patient also has having significant daytime drowsiness. She has not been using her CPAP. She has had history CPAP in the past. Her daytime drowsiness is significant with an [place] score 12/24. Will go ahead and request a sleep study but will wait to when she comes back in 6 months to order. If the patient worsens prior to that and she was been to all the sleep study I will do that at an earlier time. 05/16/2023 the patient is here for a sick visit. She has been having worsening respiratory symptoms and wheezing. She was back here in December and during that time she did have significant chest tightness and wheezing and she did require steroids. she did find the prednisone down when she came off the prednisone again she had symptoms she went to her primary care doctor started another course of prednisone. Now she is back she still has a worsening respiratory symptoms and cough. She has been doing the nebulizer regularly in addition to this has been using her rescue therapy. She has been using her maintenance therapy only with minimal improvement. She has also been on the azithromycin. The patient does have a history of asthma. Will go ahead and test her allergy in eosinophilic level to see if there is a different alternative therapy that we can provide her. In the meantime the patient will need additional prednisone as she is significantly wheezy P she did have a CT scan back in November which we personally reviewed demonstrating stable pulmonary nodules. Therefore, hold off on additional imaging at this point unless she worsens or does not improve will go ahead and get another x-ray. The patient will undergo allergy testing will follow-up in 3-4 weeks to see if we can provide a biologic therapies if she specially if she is not any better. 06/22/2023 the patient is here for pulmonary follow-up visit. She continues to struggle with her asthma. Significant wheezing. Her symptoms have been worse at nighttime. She typically needs to get up a few times a night to give her some albuterol either via inhaler or nebulizer. The patient also has been using her respiratory medications with good adherence. She still continues to be on prednisone off and on because of severe symptoms. Currently she is on 10 mg every other day and has been having significant wheezing. On examination is noted that she has diffuse inspiratory and expiratory wheezing with a prolonged expiratory phase. The patient will need additional prednisone. I will increase it to 10 mg daily. I am hopeful that we can find the lowest most effective dose until we can get her stable. We did review her allergy testing. She does have significant eosinophilia. The patient has an asthma eosinophilic phenotype. The patient will benefit from biologic therapy at this time. Based on the fact that her IgE level is within normal limits will treat her with an IL 5 inhibitor such as Fasenra. Will request from that the specialty pharmacy. The patient also will start Trelegy inhaler to see if this provides more broader coverage. Although this may be expensive for her. She is also going to continue with the nebulized therapy. With the additional prednisone the patient will also continue the budesonide but I am hopeful that when she starts biologics we can start cutting down on the inhaled steroids and systemic steroids. 09/04/2023 the patient is here for a pulmonary follow-up visit. Overall the patient is doing a lot better from the asthma standpoint. She started the Fasenra injections every month and she has noticed that she has been able to be off the prednisone and also stop the nebulized therapy. She does continue with the Trelegy inhaler on a daily basis which is good. She has been able to really improve her respiratory capacity. Will also simplify her respiratory regimen since she is doing better. The patient has been tolerating the injections well without any allergic reactions which is also good. Her biggest complaint is that the follow up mental about what appears to be a pilonidal cyst with drainage. The patient will be started antibiotics and she will follow up with [facility]. 11/10/2023 the patient is here for a pulmonary follow-up visit. She has had about few weeks. She did get exposed to a sick contact and after that she developed worsening respiratory symptoms. She started antibiotics and also prednisone. Her symptoms are partially better. Also she underwent a CT scan of the chest that she had scheduled in it demonstrated stable pulmonary nodules without any worsening airspace disease or any active issues. The patient was reassured that there isn't anything significant going on. She is still complaining of productive cough. Still having hard time expectorating because the cough causes some chest discomfort. She does have some degree reproducible chest pain from coughing. Explained to her that this is just injury to those costochondral joints. She is going to try to take cough suppressants to try to help her with that. She also can use the Acapella valve to help with expectoration and she is also using guaifenesin as an expectorant. The patient should start her nebulized therapies twice a day she continue with current respiratory regimen. If she has no better on the new antibiotics she should call for an earlier assessment. [facility] Medical History (Updated 11/10/23 @ 12:57 by Oleg Cline MD) Asthma Insomnia Chronic allergic rhinitis COPD (chronic obstructive pulmonary disease) Pulmonary nodules Social History Patient Tobacco Use Status: Former Tobacco user Tobacco use type: Cigarette Years Smoked: 45 Years Review of Systems Const Reports fatigue and Denies night sweats ENT Denies change in voice, Denies lip swelling, Denies mouth pain, Reports nasal congestion, Reports nasal discharge, Reports post nasal drip and Denies tongue swelling Card Reports chest pain, Denies dyspnea and Denies dyspnea on exertion Resp Reports change in phlegm color, Reports chest congestion, Reports cough, Denies hemoptysis, Reports pain on inspiration, Reports pain with cough, Denies dyspnea, Denies dyspnea on exertion and Reports wheezing GI Denies abdominal pain Musc Denies no additional complaints, Reports muscle weakness and Reports numbness Skin/Breast Reports sores Neuro Denies Neuro-related abnormal movements and Reports numbness Psych Denies no additional complaints Endo Reports fatigue Harman/Lymph Denies easy bleeding and Denies lymphadenopathy Aller/Immun Denies lip swelling, Denies tongue swelling and Reports wheezing Physical Exam Vital Signs: Last Vital Signs Pulse 88 11/10/23 11:27 BP 132/70 11/10/23 11:27 Pulse Ox 98 11/10/23 11:27 Oxygen Delivery Method Room Air 11/10/23 11:27 BMI result Body Mass Index 33.6 Const General: alert HEENT General nose exam: Abnormal mucous membranes and turbinates present erythematous and other (papules) Eyes Pupils: Equal, round and reactive pupils present Neck Neck: Yes normal visual inspection, Yes full ROM and Yes no lymphadenopathy Chest Chest palpation & inspection: normal inspection of the chest Resp Effort & Inspection: No prolonged expiratory phase Auscultation: clear to auscultation bilaterally, no rhonchi and no wheezes Cardio Rate: regular rate Rhythm: regular rhythm Heart sounds: S1 normal heart sound present and S2 normal heart sound present GI Palpation (GI): Soft to palpation and nontender Auscultation: normal bowel sounds General: Yes no CVA tenderness Back/Spine/Pelvis Back: no CVA tenderness Skin General skin exam: rashes and/or lesions noted Neuro Cranial nerves: Yes Equal, round and reactive pupils present Results Reviewed Results Reviewed: [place] [id number] CT Scan Report Signed Patient: Letty Wood MR#: [id number] : 1945 Acct:[id number] Age/Sex: 78 / F ADM Date: 10/18/23 Loc: HO.CT Attending Dr: Oleg Cline MD Ordering Physician: Oleg Cline MD Date of Service: 10/18/23 Procedure(s): CT chest wo IV con Accession Number(s): [id number] cc: Arnulfo Barry MD; Oleg Cline MD~ EXAMINATION: CT CHEST WITHOUT CONTRAST CLINICAL INFORMATION: Follow-up pulmonary nodules. COMPARISON: Prior CT examinations, most recently 11/16/2022. TECHNIQUE: Multidetector volumetric CT imaging of the chest was done. Axial MIP volume rendering provided. Sagittal and coronal reformatted images were obtained. This CT examination was performed using dose optimization techniques as appropriate, variously including the following: *Automated exposure control *Adjustment of mA and/or kV according to patient size (this includes techniques or standardized protocols for targeted exams where dose is matched to indication/reason for exam; i.e. extremities or head) *Use of iterative reconstruction technique DLP: 160 mGy-cm FINDINGS: LUNGS: Multiple bilateral noncalcified lung nodules are redemonstrated. These are unchanged from 03/02/2021, with dominant bilateral lung nodules described in detail on the report for the CT examination of 11/16/2022. The largest nodule within the right upper lobe is situated within the posterior segment, measuring 6 mm (5:188). The largest nodule within the right middle lobe is situated within the medial segment, measuring 3-4 mm (5:364). The largest nodule within the lower lobe is situated within the superior segment (5:191), measuring 6 mm. The largest nodule within the left upper lobe is situated within the apicoposterior segment laterally, measuring 5 mm (5:230). The largest nodule within the left lower lobe is seen within the superior segment, measuring 6 mm (5:209). No new nodule, mass, infiltrate or ground glass opacity is seen. There is no generalized increase in peripheral interlobular septal markings. There is mild focal atelectasis at the medial right base adjacent to prominent vertebral osteophytes. No small airway thickening is seen. The central airways appear patent. MEDIASTINUM: The thyroid is unremarkable. There is no thoracic aortic aneurysm. There are atherosclerotic calcifications of the great vessel origins and thoracic aorta. No mediastinal or hilar lymphadenopathy is seen. CORONARY ARTERY CALCIFICATION: None visualized on this study. PLEURA: There is no pleural effusion. No pleural mass or thickening. AXILLA: No lymphadenopathy. UPPER ABDOMEN: Unremarkable. OSSEOUS STRUCTURES: There is multi-level marked thoracic and upper lumbar degenerative disc disease and spondylosis. There are stable mild T6 and T11 anterior wedge compression fractures. There are stable benign, sclerotic bone islands noted within the anterior left sixth rib and the T10 posterior elements. No acute or aggressive osseous finding is noted. CT/CT chest wo IV con IMPRESSION: Multiple benign, stable lung nodules are redemonstrated, unchanged from CT examinations including 03/02/2021. These require no imaging follow-up. No new nodule, mass, infiltrate or ground glass opacity is seen. No thoracic lymphadenopathy or pleural effusion is noted. There is no aggressive osseous lesion. According to the UPDATED 2017 Fleischner Society recommendations, the advised follow-up imaging for multiple solid nodules, the largest measuring 6 mm or greater, is: LOW RISK PATIENT: CT at 3-6 months, then consider CT at 18-24 months. HIGH RISK PATIENT: CT at 3-6 months, then at 18-24 months. Fleischner guidelines were followed. Dictated By: Arnulfo Sams MD Signed By: <Electronically signed by Arnulfo Sams MD in OV> 10/25/23 1600 DD/ 1106 TD/TT: [employer] Specialist: JENNY Assessment & Plan Assessment & Plan (1) Bronchitis: Code(s): J40 - Bronchitis, not specified as acute or chronic (2) Asthma: Code(s): J45.909 - Unspecified asthma, uncomplicated Qualifiers: Asthma severity: severe Asthma persistence: persistent Asthma complication type: uncomplicated Qualified Code(s): J45.50 - Severe persistent asthma, uncomplicated (3) Chronic allergic rhinitis: Code(s): J30.9 - Allergic rhinitis, unspecified (4) Pulmonary nodules: Code(s): R91.8 - Other nonspecific abnormal finding of lung field (5) Insomnia: Code(s): G47.00 - Insomnia, unspecified Qualifiers: Insomnia type: primary Qualified Code(s): F51.01 - Primary insomnia Plan nebulizer 2 times a day as neededBUdeonide 0.5mg BID restart nebulizer: Xopenex and budosonide stopped Prednisone start Augmentin with probiotic continue fasenra continue acapella valve for CPT continue Trelegy 200mcg nasal rinsing Fluticasone nasal spray STEPAN as needed short-acting beta agonist as needed F/U 4 months Medications: Refilled codeine-guaifenesin 10-100 mg/5 mL 10 mL PO Q6H 10 days PRN 300 mL 0RF cough amoxicillin-pot clavulanate 875-125 mg 1 tab PO BID 10 days 20 tabs 0RF Coding Level of Care Code Est Pt Level 4 (19335) Diagnoses Bronchitis J40 Severe persistent asthma without complication J45.50 Asthma severity: severe Asthma persistence: persistent Asthma complication type: uncomplicated Chronic allergic rhinitis J30.9 Pulmonary nodules R91.8 Primary insomnia F51.01 Insomnia type: primary Time Spent (min) 18
== END 2023-11-10 11:47 | disposition home or self-care (01) ==
PROVIDERS: PCP Internal Medicine; Visit Provider Hospitalist
DX: J40 Bronchitis, not specified as acute or chronic (principal); J45.50 Severe persistent asthma, uncomplicated; J30.9 Allergic rhinitis, unspecified; R91.8 Other nonspecific abnormal finding of lung field; F51.01 Primary insomnia
CPT/HCPCS: 99214

== ENCOUNTER → 2023-11-10 11:10 | Outpatient (BNVA) | payer MEDICARE, MEDICAID, SELFPAY | PROVIDERS: PCP Internal Medicine; Visit Provider Hospitalist | DX: J40 Bronchitis, not specified as acute or chronic (principal); J45.50 Severe persistent asthma, uncomplicated; J30.9 Allergic rhinitis, unspecified; R91.8 Other nonspecific abnormal finding of lung field; F51.01 Primary insomnia; Z79.899 Other long term (current) drug therapy | CPT/HCPCS: 99212 ==

== ENCOUNTER 2023-11-21 09:30 | Outpatient (REF) | payer MEDICARE, MEDICAID, SELFPAY | END 2023-11-21 09:31 | disposition home or self-care (01) | LOC: HO.MDS 09:30 | PROVIDERS: Visit Provider Hospitalist | DX: J45.50 Severe persistent asthma, uncomplicated (principal) | CPT/HCPCS: 96372; J0517 ==

== ENCOUNTER 2024-03-04 10:52 | Outpatient (AMB) | payer MEDICARE, SELFPAY ==
[2024-03-04 10:58] VITALS: PULSE 89; O2SAT 96; BMI 36.7
--- NOTE | 2024-03-04 10:58 | MHC.OFFVIS ---
Vital Signs 03/04/24 10:58 Height 5 ft Weight 188 lb BMI 36.7 Pulse 89 Pulse Source Pulse Oximeter Pulse Oximetry (%) 96 Oxygen Delivery Method Room Air Intake Visit Reasons: productive cough Communications Scientist Required: No Allergies doxycycline Allergy (Severe, Verified 03/04/24 10:59) GI Upset Demerol Allergy (Severe, Uncoded 03/04/24 10:59) vomitting Meperidine Allergy (Severe, Uncoded 03/04/24 10:59) Dry Mouth HPI Comments Details: The patient is a 78-year-old woman with known chronic bronchitis in addition to reflux disease and chronic pain issues. Overall she has been doing fairly well on it current respiratory regimen. She has been able to stay healthy and stay off prednisone. She has been using the azithromycin Monday and Monday. Usually 250 mg. Sometimes when she gets sick we do increased to 500. Patient understands that the medication get effect her EKG and assess her QT. Therefore, during the next visit will have to check her EKG. She continues using Daliresp. Denies any GI symptoms from the medication. She continues her respiratory therapy. She has not had to take any prednisone. She did have a CT chest back in 03/2019 with numerous pulmonary nodules. 11/29/2022 the patient is here for a pulmonary follow-up visit. She has been complaining of a worsening productive cough now for the last few months. She was seen by primary care doctor who prescribed her prednisone and she did feel better. The the patient is coughing up some thick tenacious sticky mucus which appears to be grayish in color. She does have a sputum cup in order to sent for culture but she has been able to colic 1 appropriately. She keeps coughing up into tissue paper. The patient also did undergo a CT scan of the chest that was personally reviewed by me. She just had a couple weeks ago. Her pulmonary nodules continue to be stable. She does have evidence of chronic bronchitis consistent with her productive mucus it is primarily in the lower lung zones. Appears to be left more than right. Will go ahead and treat her with Levaquin in order to cover enteric organisms. Also, she can also start a new course of prednisone. The patient has not been using her nebulizer. She understands the nebulizer will provide her with good chest physical therapy. I am also going to request an Acapella valve for her for mucus clearance and pulmonary hygiene. If the patient is not better then getting a sputum sample be helpful. Otherwise we did talk about briefly about bronchoscopy to further address the airways get some deep cultures. She would like to hold off on any semi invasive procedures at this time. 11/10/2023 the patient is here for a pulmonary follow-up visit. She has had about few weeks. She did get exposed to a sick contact and after that she developed worsening respiratory symptoms. She started antibiotics and also prednisone. Her symptoms are partially better. Also she underwent a CT scan of the chest that she had scheduled in it demonstrated stable pulmonary nodules without any worsening airspace disease or any active issues. The patient was reassured that there isn't anything significant going on. She is still complaining of productive cough. Still having hard time expectorating because the cough causes some chest discomfort. She does have some degree reproducible chest pain from coughing. Explained to her that this is just injury to those costochondral joints. She is going to try to take cough suppressants to try to help her with that. She also can use the Acapella valve to help with expectoration and she is also using guaifenesin as an expectorant. The patient should start her nebulized therapies twice a day she continue with current respiratory regimen. If she has no better on the new antibiotics she should call for an earlier assessment. 03/04/2024 the patient is here for a pulmonary follow-up visit. She has feeling a lot better from a respiratory symptoms. She is back to her baseline. She is very appreciative by the fact that her medications have been helping her and she has been feeling better from a breathing standpoint. However, she did develop a severe pain on the bottom of her right chest area while trying to bend over and lean over something to try to reach something. By doing that movement she felt a pop in that developing pain in 1 of her rib areas. She has not sure if she pulled muscle or if she hurt her rib. It is definitely tender to the touch. She has a hard time taking a deep breath in. Likely floating rib based on the location. The patient also has a slight rash over the airway. Doubt that is shingles but is also in differential. Will try putting Lidoderm patch in the area. She can also try some muscle relaxant to see the provide some relief. In the meantime she continues with the Fasenra injection which is very helpful for her. She continues with respiratory therapy as well. If the patient is not better from the pain she can always get an x-ray with rib series to make sure that we do not see any fracture ribs to explain her symptoms. [facility] Medical History (Updated 03/04/24 @ 11:11 by Oleg Cline MD) Pleuritic chest pain Asthma Insomnia Chronic allergic rhinitis COPD (chronic obstructive pulmonary disease) Pulmonary nodules Social History Patient Tobacco Use Status: Former Tobacco user Tobacco use type: Cigarette Years Smoked: 45 Years Review of Systems Const Reports fatigue and Denies night sweats ENT Denies change in voice, Denies lip swelling, Denies mouth pain, Reports nasal congestion, Reports nasal discharge, Reports post nasal drip and Denies tongue swelling Card Reports chest pain, Denies dyspnea and Denies dyspnea on exertion Resp Denies change in phlegm color, Denies chest congestion, Reports cough, Denies hemoptysis, Reports pain on inspiration, Reports pain with cough, Denies dyspnea, Denies dyspnea on exertion and Reports wheezing GI Denies abdominal pain Musc Denies no additional complaints, Reports muscle weakness and Reports numbness Skin/Breast Reports sores Neuro Denies Neuro-related abnormal movements and Reports numbness Psych Denies no additional complaints Endo Reports fatigue Harman/Lymph Denies easy bleeding and Denies lymphadenopathy Aller/Immun Denies lip swelling, Denies tongue swelling and Reports wheezing Physical Exam Vital Signs: Last Vital Signs Pulse 89 03/04/24 10:58 Pulse Ox 96 03/04/24 10:58 Oxygen Delivery Method Room Air 03/04/24 10:58 BMI result Body Mass Index 36.7 Const General: alert HEENT General nose exam: Abnormal mucous membranes and turbinates present erythematous and other (papules) Eyes Pupils: Equal, round and reactive pupils present Neck Neck: Yes normal visual inspection, Yes full ROM and Yes no lymphadenopathy Chest Chest palpation & inspection: normal inspection of the chest Resp Effort & Inspection: No prolonged expiratory phase Auscultation: clear to auscultation bilaterally, no rhonchi and no wheezes Cardio Rate: regular rate Rhythm: regular rhythm Heart sounds: S1 normal heart sound present and S2 normal heart sound present GI Palpation (GI): Soft to palpation and nontender Auscultation: normal bowel sounds General: Yes no CVA tenderness Back/Spine/Pelvis Back: no CVA tenderness Skin General skin exam: rashes and/or lesions noted Neuro Cranial nerves: Yes Equal, round and reactive pupils present Assessment & Plan Assessment & Plan (1) Asthma: Code(s): J45.909 - Unspecified asthma, uncomplicated Category: Medical Qualifiers: Asthma complication type: uncomplicated Asthma persistence: persistent Asthma severity: severe Qualified Code(s): J45.50 - Severe persistent asthma, uncomplicated (2) Chronic allergic rhinitis: Code(s): J30.9 - Allergic rhinitis, unspecified Category: Medical (3) Pulmonary nodules: Code(s): R91.8 - Other nonspecific abnormal finding of lung field Category: Medical (4) Insomnia: Code(s): G47.00 - Insomnia, unspecified Category: Medical Qualifiers: Insomnia type: primary Qualified Code(s): F51.01 - Primary insomnia (5) Pleuritic chest pain: Code(s): R07.81 - Pleurodynia Category: Medical Plan conitnue Xopenex as needed holding budosonide continue fasenra SC every 2 months continue acapella valve for CPT continue Trelegy 200mcg nasal rinsing Fluticasone nasal spray STEPAN as needed short-acting beta agonist as needed rib series if chest pain persist F/U 4-6 months Orders: Orders XR ribs RT min 3V w CXR1V Today R07.81 - Pleurodynia Medications: New cyclobenzaprine 10 mg PO TID 10 days PRN 30 tabs 0RF muscle spasm lidocaine 5% (Lidoderm) leave on most painful area for up to 12 hrs 1 patch topical DAILY 30 days 30 ea 4RF B02.29 - Other postherpetic nervous system involvement Coding Level of Care Code Est Pt Level 4 (51406) Diagnoses Severe persistent asthma without complication J45.50 Asthma complication type: uncomplicated Asthma persistence: persistent Asthma severity: severe Chronic allergic rhinitis J30.9 Pulmonary nodules R91.8 Primary insomnia F51.01 Insomnia type: primary Pleuritic chest pain R07.81 Time Spent (min) 16
== END 2024-03-04 11:20 | disposition home or self-care (01) ==
PROVIDERS: PCP Internal Medicine; Visit Provider Hospitalist
DX: J45.50 Severe persistent asthma, uncomplicated (principal); J30.9 Allergic rhinitis, unspecified; R91.8 Other nonspecific abnormal finding of lung field; F51.01 Primary insomnia; R07.81 Pleurodynia
CPT/HCPCS: 99214

== ENCOUNTER → 2024-03-04 10:52 | Outpatient (BNVA) | payer MEDICARE, SELFPAY | PROVIDERS: PCP Internal Medicine; Visit Provider Hospitalist | DX: J45.50 Severe persistent asthma, uncomplicated (principal); J30.9 Allergic rhinitis, unspecified; R07.81 Pleurodynia; R91.8 Other nonspecific abnormal finding of lung field; F51.01 Primary insomnia | CPT/HCPCS: 99212 ==

== ENCOUNTER 2024-03-20 11:30 | Outpatient (REF) | payer MEDICARE, SELFPAY ==
--- NOTE | ~2024-03-20 | XR_ITS ---
EXAMINATION: XR RIBS, RIGHT CLINICAL INFORMATION: Pleurodynia. COMPARISON: CT chest on October 18, 2023. TECHNIQUE: PA view of the chest and 4 views of right lower ribs. FINDINGS: XR/XR ribs RT min 3V w CXR1V IMPRESSION: S-shaped thoracolumbar scoliosis with advanced multilevel degenerative changes. Heart size within normal limits. There is no gross pneumothorax. Lung volumes are low. Mild T6 and T11 anterior wedge compression fractures were characterized on CT chest of 10/18/2023. Multiple pulmonary nodules were better characterized on CT scan of 10/18/2023. Deformities along the lateral aspects of the right fourth, fifth, sixth, and possibly seventh, eighth and ninth ribs may be related to prior fractures. IMPRESSION: Multiple deformities along the lateral aspects of multiple [id number] right ribs are characteristic of prior fractures, some with evidence of healing.
== END 2024-03-20 11:31 | disposition home or self-care (01) ==
LOC: HO.XRAY 11:30
PROVIDERS: PCP Internal Medicine; Visit Provider Hospitalist
DX: R07.81 Pleurodynia (principal)
CPT/HCPCS: 71101

== ENCOUNTER 2024-08-05 14:55 | Outpatient (AMB) | payer MEDICARE, SELFPAY ==
[2024-08-05 15:01] VITALS: BP 124/70; PULSE 73; O2SAT 96; BMI 35.8
--- NOTE | 2024-08-05 15:01 | A.OFFVIS_ITS ---
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 Overall she has been doing fairly well on it current respiratory regimen. She has been able to stay healthy and stay off prednisone. She has been using the azithromycin Monday and Monday. Usually 250 mg. Sometimes when she gets sick we do increased to 500. Patient understands that the medication get effect her EKG and assess her QT. Therefore, during the next visit will have to check her EKG. She continues using Daliresp. Denies any GI symptoms from the medication. She continues her respiratory therapy. She has not had to take any prednisone. She did have a CT chest back in 03/2019 with numerous pulmonary nodules. 03/04/2024 the patient is here for a pulmonary follow-up visit. She has feeling a lot better from a respiratory symptoms. She is back to her baseline. She is very appreciative by the fact that her medications have been helping her and she has been feeling better from a breathing standpoint. However, she did develop a severe pain on the bottom of her right chest area while trying to bend over and lean over something to try to reach something. By doing that movement she felt a pop in that developing pain in 1 of her rib areas. She has not sure if she pulled muscle or if she hurt her rib. It is definitely tender to the touch. She has a hard time taking a deep breath in. Likely floating rib based on the location. The patient also has a slight rash over the airway. Doubt that is shingles but is also in differential. Will try putting Lidoderm patch in the area. She can also try some muscle relaxant to see the provide some relief. In the meantime she continues with the Fasenra injection which is very helpful for her. She continues with respiratory therapy as well. If the patient is not better from the pain she can always get an x-ray with rib series to make sure that we do not see any fracture ribs to explain her symptoms. 08/05/2024 the patient is here for a pulmonary follow-up visit. She has a preoperative evaluation today for total knee replacement that is going to occur sometime this week. She is doing well from a respiratory status. She has been on Trelegy taking daily. In addition to that she had been on the Fasenra biologic therapy that has been very affecting beneficial. She still having some chest congestion at times. [id number] severity. Primarily when she lies flat. This has to do with the fact that her dog sick and she is having to put the bed down. I am hopeful that she can bring the bed up a little bit higher though. In the meantime her respiratory exam is reassuring. At this point she may able to proceed with anesthesia and surgery this time. She does have moderate risk for perioperative pulmonary complications which includes; atelectasis hypoxia pneumonia and COPD exacerbations. But at this point the patient is medically optimized may be able to proceed with surgery. [facility] Medical History (Updated 08/05/24 @ 15:08 by Oleg Cline MD) Pre-op chest exam Pleuritic chest pain Asthma Insomnia Chronic allergic rhinitis COPD (chronic obstructive pulmonary disease) Pulmonary nodules Social History Patient Tobacco Use Status: Former Tobacco user Tobacco use type: Cigarette Years Smoked: 45 Years Review of Systems Const Reports fatigue and Denies night sweats ENT Denies change in voice, Denies lip swelling, Denies mouth pain, Reports nasal congestion, Reports nasal discharge, Reports post nasal drip and Denies tongue swelling Card Reports chest pain, Denies dyspnea and Denies dyspnea on exertion Resp Denies change in phlegm color, Denies chest congestion, Reports cough, Denies hemoptysis, Reports pain on inspiration, Reports pain with cough, Denies dyspnea, Denies dyspnea on exertion and Reports wheezing GI Denies abdominal pain Musc Reports as per HPI, Reports arthralgias, Reports muscle weakness and Reports numbness Skin/Breast Reports sores Neuro Denies Neuro-related abnormal movements and Reports numbness Psych Denies no additional complaints Endo Reports fatigue Harman/Lymph Denies easy bleeding and Denies lymphadenopathy Aller/Immun Denies lip swelling, Denies tongue swelling and Reports wheezing Physical Exam Vital Signs: Last Vital Signs Pulse 73 08/05/24 15:01 BP 124/70 08/05/24 15:01 Pulse Ox 96 08/05/24 15:01 Oxygen Delivery Method Room Air 08/05/24 15:01 BMI result Body Mass Index 35.8 Const General: alert HEENT General nose exam: Abnormal mucous membranes and turbinates present erythematous and other (papules) Eyes Pupils: Equal, round and reactive pupils present Neck Neck: Yes normal visual inspection, Yes full ROM and Yes no lymphadenopathy Chest Chest palpation & inspection: normal inspection of the chest Resp Effort & Inspection: normal respiratory effort and No prolonged expiratory phase Auscultation: no rhonchi, no wheezes and diminished lung sounds Cardio Rate: regular rate Rhythm: regular rhythm Heart sounds: S1 normal heart sound present and S2 normal heart sound present GI Palpation (GI): Soft to palpation and nontender Auscultation: normal bowel sounds General: Yes no CVA tenderness Back/Spine/Pelvis Back: no CVA tenderness Skin General skin exam: rashes and/or lesions noted Neuro Cranial nerves: Yes Equal, round and reactive pupils present Assessment & Plan Assessment & Plan (1) Pre-op chest exam: Code(s): Z01.811 - Encounter for preprocedural respiratory examination Category: Medical (2) Asthma: Code(s): J45.909 - Unspecified asthma, uncomplicated Category: Medical Qualifiers: Asthma severity: severe Asthma persistence: persistent Asthma complication type: uncomplicated Qualified Code(s): J45.50 - Severe persistent asthma, uncomplicated (3) Chronic allergic rhinitis: Code(s): J30.9 - Allergic rhinitis, unspecified Category: Medical (4) Pulmonary nodules: Code(s): R91.8 - Other nonspecific abnormal finding of lung field Category: Medical (5) Insomnia: Code(s): G47.00 - Insomnia, unspecified Category: Medical Qualifiers: Insomnia type: primary Qualified Code(s): F51.01 - Primary insomnia Plan The patient is able to proceed with anesthesia and orthopedic at this time. She is able to have general anesthesia. She will benefit from pre and post broncho- dilator therapy. She does have some increased risk, but clinically she is doing very well at this time. conitnue Xopenex as needed holding budosonide holding prednisone continue fasenra SC every 2 months continue acapella valve for CPT continue Trelegy 200mcg nasal rinsing Fluticasone nasal spray STEPAN as needed short-acting beta agonist as needed F/U 2 months Medications: New prednisone PO daily; Take 6 tabs daily x 3 days, then 5 tabs x 3 days, then 4 tabs x 3 days, then 3 tabs x 3 days, then 2 tabs daily x 3 days, then 1 tab x 3 days to complete. 18 days 63 tabs 0RF Coding Level of Care Code Est Pt Level 4 (16057) Diagnoses Pre-op chest exam Z01.811 Severe persistent asthma without complication J45.50 Asthma severity: severe Asthma persistence: persistent Asthma complication type: uncomplicated Chronic allergic rhinitis J30.9 Pulmonary nodules R91.8 Primary insomnia F51.01 Insomnia type: primary Time Spent (min) 17
== END 2024-08-05 15:24 | disposition home or self-care (01) ==
PROVIDERS: PCP Internal Medicine; Visit Provider Hospitalist
DX: Z01.811 Encounter for preprocedural respiratory examination (principal); J45.50 Severe persistent asthma, uncomplicated; J30.9 Allergic rhinitis, unspecified; R91.8 Other nonspecific abnormal finding of lung field; F51.01 Primary insomnia
CPT/HCPCS: 99214

== ENCOUNTER → 2024-08-05 14:55 | Outpatient (BNVA) | payer MEDICARE, SELFPAY | PROVIDERS: PCP Internal Medicine; Visit Provider Hospitalist | DX: Z01.811 Encounter for preprocedural respiratory examination (principal); J45.50 Severe persistent asthma, uncomplicated; J30.9 Allergic rhinitis, unspecified; R91.8 Other nonspecific abnormal finding of lung field; F51.01 Primary insomnia | CPT/HCPCS: 99212 ==

== ENCOUNTER 2024-09-09 09:48 | Outpatient (AMB) | payer MEDICARE, SELFPAY ==
[2024-09-09 09:50] VITALS: BP 130/78; PULSE 88; O2SAT 97
--- NOTE | 2024-09-09 09:50 | MHC.OFFVIS ---
Vital Signs 09/09/24 09:50 Weight 188 lb 7.924 oz BP 130/78 Blood Pressure Location Rt brachial Position Sitting Pulse 88 Pulse Source Pulse Oximeter Pulse Oximetry (%) 97 Oxygen Delivery Method Room Air Intake Visit Reasons: Cough Allergies doxycycline Allergy (Severe, Verified 09/09/24 09:57) GI Upset Demerol Allergy (Severe, Uncoded 09/09/24 09:57) vomitting Meperidine Allergy (Severe, Uncoded 09/09/24 09:57) Dry Mouth Medication List - Last Reconciled 09/09/24 by Marixa Miguel LPN albuterol sulfate 90 mcg/actuation 2 puffs inhalation Q6H PRN amlodipine 5 mg PO DAILY amoxicillin-pot clavulanate 875-125 mg 1 tab PO BID 10 days aspirin 325 mg PO DAILY azithromycin 500 mg PO 3XW benralizumab (Fasenra) 30 mg subcut Q8W 56 days budesonide-formoterol 160-4.5 mcg/actuation (Symbicort) 2 puffs PO BID celecoxib 50 mg PO BID codeine-guaifenesin 10-100 mg/5 mL 10 mL PO Q6H PRN 10 days cyclobenzaprine 10 mg PO TID PRN 10 days duloxetine 60 mg PO DAILY fentanyl 50 mcg/hr 1 patch topical Q3D flu vacc [id number](65yr up)-PF mL IM fluticasone propionate 50 mcg/actuation 2 sprays intranasal DAILY 30 days vejeabixsas-vvqsirbih-sojhjmzj 200-62.5-25 mcg (Trelegy Ellipta) 1 ea PO DAILY ibuprofen 600 mg PO TID PRN lansoprazole 30 mg PO DAILY levalbuterol HCl 1.25 mg (3 mL) inhalation BID lidocaine 5% (Lidoderm) 1 patch topical DAILY 30 days lisinopril-hydrochlorothiazide 20-25 mg 2 tabs PO DAILY metoprolol succinate ER 50 mg PO DAILY montelukast 10 mg PO BEDTIME mupirocin 2% 1 appl topical BID 10 days nebulizers As directed oxycodone 5 mg PO QID PRN potassium chloride ER 10 mEq PO DAILY prednisone PO daily; Take 6 tabs daily x 3 days, then 5 tabs x 3 days, then 4 tabs x 3 days, then 3 tabs x 3 days, then 2 tabs daily x 3 days, then 1 tab x 3 days to complete. 18 days pregabalin mg PO roflumilast 500 mcg PO DAILY 30 days tiotropium bromide 2.5 mcg/actuation (Spiriva Respimat) 2 puffs inhalation DAILY HPI Comments Details: The patient is a 79-year-old woman with known chronic bronchitis in addition to reflux disease and chronic pain issues. Overall she has been doing fairly well on it current respiratory regimen. She has been able to stay healthy and stay off prednisone. She has been using the azithromycin Monday and Monday. Usually 250 mg. Sometimes when she gets sick we do increased to 500. Patient understands that the medication get effect her EKG and assess her QT. Therefore, during the next visit will have to check her EKG. She continues using Daliresp. Denies any GI symptoms from the medication. She continues her respiratory therapy. She has not had to take any prednisone. She did have a CT chest back in 03/2019 with numerous pulmonary nodules. 03/04/2024 the patient is here for a pulmonary follow-up visit. She has feeling a lot better from a respiratory symptoms. She is back to her baseline. She is very appreciative by the fact that her medications have been helping her and she has been feeling better from a breathing standpoint. However, she did develop a severe pain on the bottom of her right chest area while trying to bend over and lean over something to try to reach something. By doing that movement she felt a pop in that developing pain in 1 of her rib areas. She has not sure if she pulled muscle or if she hurt her rib. It is definitely tender to the touch. She has a hard time taking a deep breath in. Likely floating rib based on the location. The patient also has a slight rash over the airway. Doubt that is shingles but is also in differential. Will try putting Lidoderm patch in the area. She can also try some muscle relaxant to see the provide some relief. In the meantime she continues with the Fasenra injection which is very helpful for her. She continues with respiratory therapy as well. If the patient is not better from the pain she can always get an x-ray with rib series to make sure that we do not see any fracture ribs to explain her symptoms. 08/05/2024 the patient is here for a pulmonary follow-up visit. She has a preoperative evaluation today for total knee replacement that is going to occur sometime this week. She is doing well from a respiratory status. She has been on Trelegy taking daily. In addition to that she had been on the Fasenra biologic therapy that has been very affecting beneficial. She still having some chest congestion at times. Insi-ia-bdpxdepk severity. Primarily when she lies flat. This has to do with the fact that her dog sick and she is having to put the bed down. I am hopeful that she can bring the bed up a little bit higher though. In the meantime her respiratory exam is reassuring. At this point she may able to proceed with anesthesia and surgery this time. She does have moderate risk for perioperative pulmonary complications which includes; atelectasis hypoxia pneumonia and COPD exacerbations. But at this point the patient is medically optimized may be able to proceed with surgery. 09/09/2024 the patient is here for a pulmonary follow-up visit. Overall she is doing well from a respiratory status. The Trelegy inhaler has been very affecting beneficial. She also has been on the Fasenra injections also been very affecting beneficial. She has not had to use her rescue inhaler but right now is it make sure that she has a new 1. In the meantime she did have a knee done and the patient unfortunately had a fall hurting her knee replacement and also she fracture left facial bones. She is going to follow-up with the specialists for that. She has been on aspirin to avoid blood clots right now. Her breathing is very good right now. She is going to continue working with physical therapy in orthopedist in specialist regarding her facial fractures better from a pulmonary standpoint she will continue with the current regimen that is been very effective in beneficial for her. [facility] Medical History (Updated 08/05/24 @ 15:08 by Oleg Cline MD) Pre-op chest exam Pleuritic chest pain Asthma Insomnia Chronic allergic rhinitis COPD (chronic obstructive pulmonary disease) Pulmonary nodules Social History Patient Tobacco Use Status: Former Tobacco user Tobacco use type: Cigarette Years Smoked: 45 Years Review of Systems Const Reports fatigue and Denies night sweats ENT Reports as per HPI, Denies change in voice, Denies lip swelling, Denies mouth pain, Reports nasal congestion, Reports nasal discharge, Reports post nasal drip and Denies tongue swelling Card Denies chest pain, Denies dyspnea and Denies dyspnea on exertion Resp Denies change in phlegm color, Denies chest congestion, Reports cough, Denies hemoptysis, Reports pain on inspiration, Reports pain with cough, Denies dyspnea, Denies dyspnea on exertion and Denies wheezing GI Denies abdominal pain Musc Reports as per HPI, Reports myalgias, Reports arthralgias, Reports joint swelling, Reports limited range of motion, Reports muscle weakness, Reports numbness and Reports stiffness Skin/Breast Reports unusual bruising Neuro Denies Neuro-related abnormal movements and Reports numbness Psych Denies no additional complaints Endo Reports fatigue Harman/Lymph Denies easy bleeding and Denies lymphadenopathy Aller/Immun Denies lip swelling, Denies tongue swelling and Denies wheezing Physical Exam Vital Signs: Last Vital Signs Pulse 88 09/09/24 09:50 BP 130/78 09/09/24 09:50 Pulse Ox 97 09/09/24 09:50 Oxygen Delivery Method Room Air 09/09/24 09:50 Const General: alert HEENT Head: Yes contusion, Yes scalp lesion, Yes scalp tenderness and Yes other (bruising) General nose exam: Abnormal mucous membranes and turbinates present erythematous and other (papules) Eyes Pupils: Equal, round and reactive pupils present Neck Neck: Yes normal visual inspection, Yes full ROM and Yes no lymphadenopathy Chest Chest palpation & inspection: normal inspection of the chest Resp Effort & Inspection: normal respiratory effort and No prolonged expiratory phase Auscultation: no rhonchi, no wheezes and diminished lung sounds Cardio Rate: regular rate Rhythm: regular rhythm Heart sounds: S1 normal heart sound present and S2 normal heart sound present GI Palpation (GI): Soft to palpation and nontender Auscultation: normal bowel sounds General: Yes no CVA tenderness Back/Spine/Pelvis Back: no CVA tenderness Skin General skin exam: rashes and/or lesions noted Neuro Cranial nerves: Yes Equal, round and reactive pupils present Assessment & Plan Assessment & Plan (1) Asthma: Code(s): J45.909 - Unspecified asthma, uncomplicated Category: Medical Qualifiers: Asthma complication type: uncomplicated Asthma persistence: persistent Asthma severity: severe Qualified Code(s): J45.50 - Severe persistent asthma, uncomplicated (2) Chronic allergic rhinitis: Code(s): J30.9 - Allergic rhinitis, unspecified Category: Medical (3) Pulmonary nodules: Code(s): R91.8 - Other nonspecific abnormal finding of lung field Category: Medical (4) Insomnia: Code(s): G47.00 - Insomnia, unspecified Category: Medical Qualifiers: Insomnia type: primary Qualified Code(s): F51.01 - Primary insomnia Plan conitnue Xopenex as needed continue fasenra SC every 2 months continue acapella valve for CPT continue Trelegy 200mcg nasal rinsing Fluticasone nasal spray STEPAN as needed short-acting beta agonist as needed F/U 4-6 months Medications: Changed From zbkpyogbazu-xacwccvto-wblnbtrn 200-62.5-25 mcg (Trelegy Ellipta) 1 ea PO DAILY 60 ea 0RF To epqwlrqhoru-ajewsvuly-pnyugsoh 200-62.5-25 mcg (Trelegy Ellipta) 1 ea PO DAILY 60 ea 11RF 30 days Refilled albuterol sulfate 90 mcg/actuation 2 puffs inhalation Q6H PRN 25.5 grams 11RF for wheezing Discontinued budesonide-formoterol 160-4.5 mcg/actuation (Symbicort) Discontinued Reason: Doctor's Order 2 puffs PO BID 30.6 grams 3RF Coding Level of Care Code Est Pt Level 4 (53843) Diagnoses Severe persistent asthma without complication J45.50 Asthma complication type: uncomplicated Asthma persistence: persistent Asthma severity: severe Chronic allergic rhinitis J30.9 Pulmonary nodules R91.8 Primary insomnia F51.01 Insomnia type: primary Time Spent (min) 16
== END 2024-09-09 10:12 | disposition home or self-care (01) ==
PROVIDERS: PCP Internal Medicine; Visit Provider Hospitalist
DX: J45.50 Severe persistent asthma, uncomplicated (principal); J30.9 Allergic rhinitis, unspecified; R91.8 Other nonspecific abnormal finding of lung field; F51.01 Primary insomnia
CPT/HCPCS: 99214

== ENCOUNTER → 2024-09-09 09:48 | Outpatient (BNVA) | payer MEDICARE, SELFPAY | PROVIDERS: PCP Internal Medicine; Visit Provider Hospitalist | DX: J42 Unspecified chronic bronchitis (principal); J45.50 Severe persistent asthma, uncomplicated; R91.8 Other nonspecific abnormal finding of lung field; F51.01 Primary insomnia | CPT/HCPCS: 99212 ==

== ENCOUNTER 2025-03-03 09:00 | Outpatient (RCR) | payer MEDICARE, OTHER, SELFPAY ==
[2024-01-23 11:06] VITALS: BP 144/70; PULSE 100; RESP 20; TEMP 36.7; O2SAT 98
[2024-01-23 11:12] VITALS: BP 112/67
[2024-03-19 09:12] VITALS: BMI 35.1
[2024-03-19 09:13] VITALS: BP 139/83; PULSE 98; RESP 20; TEMP 36.3; O2SAT 97
[2024-05-23 09:14] VITALS: BP 140/71; PULSE 97; RESP 16; TEMP 36.4; O2SAT 95
[2024-07-16 09:06] VITALS: BP 124/70; PULSE 104; RESP 20; TEMP 36.1; O2SAT 95
[2024-09-10 09:06] VITALS: BP 123/66; PULSE 81; RESP 16; TEMP 36; O2SAT 95
[2024-11-05 09:14] VITALS: BP 138/78; PULSE 110; RESP 18; TEMP 36.1; O2SAT 95
[2024-12-31 09:01] VITALS: BP 120/75; PULSE 105; RESP 20; TEMP 36.1; O2SAT 97
[2025-03-03 09:15] VITALS: BP 137/68; PULSE 85; RESP 20; TEMP 36.6; O2SAT 95
== END 2025-03-26 11:07 | disposition home or self-care (01) ==
LOC: HO.INF 09:00
PROVIDERS: Visit Provider Hospitalist
DX: J45.50 Severe persistent asthma, uncomplicated (principal)
CPT/HCPCS: 96372; J0517

== ENCOUNTER 2025-03-11 10:38 | Outpatient (REF) | payer MEDICARE, MEDICAID, SELFPAY ==
--- NOTE | ~2025-03-11 | XR_ITS ---
EXAMINATION: XR CHEST CLINICAL INFORMATION: J40 - Bronchitis, not specified as acute or chronic COMPARISON: 03/20/2024, CT chest 10/18/2023. TECHNIQUE: 2 views of the chest were obtained. FINDINGS: The cardiac, hilar, and mediastinal contours are normal. Aortic mural calcification. Aortic tortuosity. The lungs are clear bilaterally. A nodular density in the left lower lung is consistent with a bone island in a left anterior rib on CT. There is no pneumothorax or pleural effusion. There is a healed right rib fracture noted. There are surgical anchors in the left humeral head. There are degenerative changes in both shoulder joints and throughout the spine. There are no soft tissue abnormalities. XR/XR chest 2V IMPRESSION: No active pulmonary disease. Electronically signed by: Xavier Asher MD 03/11/2025 02:22 PM EDT
[2025-03-11 11:44] LABS: MANUAL DIFF FLAG NO
[2025-03-11 12:23] LABS: Basophils Percent Auto 0.1 % (0-2); Hematocrit 38.2 % (37.0-47.0); Hemoglobin 13.1 g/dl (12.0-16.0); Imm Gran Abs Auto 0.08 X10*3/uL (0.00-0.03); Lymphocytes Absolute Auto 1.6 X10*3/uL (1.2-4.9); Lymphocytes Percent Auto 20.7 % (20-40); Mean Corpuscular HGB Conc 34.3 g/dl (31.0-35.0); Mean Corpuscular Hemoglobin 27.9 pg (27.0-33.0); Mean Corpuscular Volume 81.4 fL (80.0-98.0); Mean Platelet Volume 9.4 fL (9.4-12.3); Monocytes Absolute Auto 0.6 X10*3/uL (0.1-1.2); Monocytes Percent Auto 8.1 % (2-11); Neutrophils Absolute Auto 5.4 x10*3/uL (2.0-8.3); Neutrophils Percent Auto 70.1 % (45-73); Platelet Count 284 X10*3/uL (160-400); Red Blood Count 4.69 X10*6/uL (4.20-5.50); Red Cell Distribution Width 14.3 % (11.0-16.0); White Blood Count 7.7 X10*3/uL (4.8-10.8)
[2025-03-11 12:47] LABS: Anion Gap 12 (12-20); Blood Urea Nitrogen 10 mg/dL (9-16); Calcium 9.7 mg/dL (8.4-10.2); Carbon Dioxide 30 mmol/L (22-29); Chloride 103 mmol/L (96-108); Estimated Glomerular Filt Rate > 60; Glucose Random 88 mg/dL (60-115); Potassium 3.9 mmol/L (3.3-5.1); Sodium 141 mmol/L (135-145)
[2025-03-11 13:00] LABS: Erythrocyte Sedimentation Rate 8 MM/HR (0-20)
[2025-03-12 06:03] LABS: Immunoglobulin E 29 kU/L (<OR=114)
[2025-03-12 12:38] LABS: IgA 197 mg/dL (70-320); IgG 683 mg/dL (600-1540); IgM 84 mg/dL (50-300)
== END 2025-03-11 10:39 | disposition home or self-care (01) ==
LOC: HO.XRAY 10:38
PROVIDERS: PCP Internal Medicine; Visit Provider Hospitalist
DX: J30.9 Allergic rhinitis, unspecified (principal); R07.81 Pleurodynia; B02.29 Other postherpetic nervous system involvement; J45.40 Moderate persistent asthma, uncomplicated; R91.8 Other nonspecific abnormal finding of lung field; F51.01 Primary insomnia; J40 Bronchitis, not specified as acute or chronic; R06.09 Other forms of dyspnea
CPT/HCPCS: 36415; 71046; 80048; 82784; 82785; 85025; 85652; 99212

== ENCOUNTER 2025-03-11 10:38 | Outpatient (AMB) | payer MEDICARE, MEDICAID, SELFPAY ==
--- NOTE | 2025-03-11 10:40 | A.OFFVIS_ITS ---
Vital Signs 03/11/25 10:41 Height 5 ft 1 in Weight 184 lb 1.376 oz BMI 34.8 BP 110/62 Blood Pressure Location Lt brachial Position Sitting Pulse 73 Pulse Source Pulse Oximeter Pulse Oximetry (%) 94 Oxygen Delivery Method Room Air Intake Visit Reasons: Cough Digital Media Specialist Required: No Allergies doxycycline Allergy (Severe, Verified 03/11/25 10:43) GI Upset Demerol Allergy (Severe, Uncoded 09/09/24 09:57) vomitting Meperidine Allergy (Severe, Uncoded 09/09/24 09:57) Dry Mouth HPI Comments Details: The patient is a 79-year-old woman with known chronic bronchitis in addition to reflux disease and chronic pain issues. Overall she has been doing fairly well on it current respiratory regimen. She has been able to stay healthy and stay off prednisone. She has been using the azithromycin Monday and Monday. Usually 250 mg. Sometimes when she gets sick we do increased to 500. Patient un derstands that the medication get effect her EKG and assess her QT. Therefore, during the next visit will have to check her EKG. She continues using Daliresp. Denies any GI symptoms from the medication. She continues her respiratory therapy. She has not had to take any prednisone. She did have a CT chest back in 03/2019 with numerous pulmonary nodules. 03/04/2024 the patient is here for a pulmonary follow-up visit. She has feeling a lot better from a respiratory symptoms. She is back to her baseline. She is very appreciative by the fact that her medications have been helping her and she has been feeling better from a breathing standpoint. However, she did develop a severe pain on the bottom of her right chest area while trying to bend over and lean over something to try to reach something. By doing that movement she felt a pop in that developing pain in 1 of her rib areas. She has not sure if she pulled muscle or if she hurt her rib. It is definitely tender to the touch. She has a hard time taking a deep breath in. Likely floating rib based on the location. The patient also has a slight rash over the airway. Doubt that is shingles but is also in differential. Will try putting Lidoderm patch in the area. She can also try some muscle relaxant to see the provide some relief. In the meantime she continues with the Fasenra injection which is very helpful for her. She continues with respiratory therapy as well. If the patient is not better from the pain she can always get an x-ray with rib series to make sure that we do not see any fracture ribs to explain her symptoms. 08/05/2024 the patient is here for a pulmonary follow-up visit. She has a preoperative evaluation today for total knee replacement that is going to occur sometime this week. She is doing well from a respiratory status. She has been on Trelegy taking daily. In addition to that she had been on the Fasenra biologic therapy that has been very affecting beneficial. She still having some chest congestion at times. Zcwj-wi-phsyuirq severity. Primarily when she lies flat. This has to do with the fact that her dog sick and she is having to put the bed down. I am hopeful that she can bring the bed up a little bit higher though. In the meantime her respiratory exam is reassuring. At this point she may able to proceed with anesthesia and surgery this time. She does have mode rate risk for perioperative pulmonary complications which includes; atelectasis hypoxia pneumonia and COPD exacerbations. But at this point the patient is medically optimized may be able to proceed with surgery. 09/09/2024 the patient is here for a pulmonary follow-up visit. Overall she is doing well from a respiratory status. The Trelegy inhaler has been very affecting beneficial. She also has been on the Fasenra injections also been very affecting beneficial. She has not had to use her rescue inhaler but right now is it make sure that she has a new 1. In the meantime she did have a knee done and the patient unfortunately had a fall hurting her knee replacement and also she fracture left facial bones. She is going to follow-up with the specialists for that. She has been on aspirin to avoid blood clots right now. Her breathing is very good right now. She is going to continue working with physical therapy in orthopedist in specialist regarding her facial fractures better from a pulmonary standpoint she will continue with the current regimen that is been very effective in beneficial for her. 03/11/2025 the patient is here for a pulmonary follow-up visit. She still complains of significant productive cough and ongoing coughing shortness of breath. The Fasenra has not been very helpful. She also has significant atopic dermatitis that seems to be getting worse. Therefore, since she is already on biologic therapy with Fasenra will go ahead and switch over to Dupixent and she failed Fasenra therapy. Will go ahead and request additional blood work at this time as well. She did follow-up with Dermatology in the did also recommend she switch over to Dupixent at this time. Hopefully this will helps her symptoms. In the meantime she continues on the Trelegy inhaler. She was continues with a cough. Will try the Tessalon Perles symptoms provide some relief although they may not be covered. In the meantime we did go for a walking oximetry in the office in although she did not qualify for oxygen with activity she did drop down to 91%. She also had evidence of electrical alternans bringing up the possibility of a cardiac etiology. Therefore going to request an echocardiogram. She is also going to follow-up with the primary care doctor soon and she can talk to them about additional cardiac evaluations. Today after the visit she is going to undergo blood work and also chest x-ray. If anything is abnormal let her know. Otherwise will follow-up in 6-8 weeks. [facility] Medical History (Updated 03/11/25 @ 20:50 by Oleg Cline MD) Dyspnea on exertion Pre-op chest exam Pleuritic chest pain Asthma Insomnia Chronic allergic rhinitis COPD (chronic obstructive pulmonary disease) Pulmonary nodules Social History Patient Tobacco Use Status: Former Tobacco user Tobacco use type: Cigarette Years Smoked: 45 Years Review of Systems Const Reports fatigue and Denies night sweats ENT Reports as per HPI, Denies change in voice, Denies lip swelling, Denies mouth pain, Reports nasal congestion, Reports nasal discharge, Reports post nasal drip and Denies tongue swelling Card Denies chest pain, Denies dyspnea and Reports dyspnea on exertion Resp Denies change in phlegm color, Reports chest congestion, Reports cough, Denies hemoptysis, Reports pain on inspiration, Reports pain with cough, Denies dyspnea, Reports dyspnea on exertion and Denies wheezing GI Denies abdominal pain Musc Reports as per HPI, Reports myalgias, Reports arthralgias, Reports joint swelling, Reports limited range of motion, Reports muscle weakness, Reports numbness and Reports stiffness Skin/Breast Reports unusual bruising Neuro Denies Neuro-related abnormal movements and Reports numbness Psych Denies no additional complaints Endo Reports fatigue Harman/Lymph Denies easy bleeding and Denies lymphadenopathy Aller/Immun Denies lip swelling, Denies tongue swelling and Denies wheezing Physical Exam Vital Signs: Last Vital Signs Pulse 73 03/11/25 10:41 BP 110/62 03/11/25 10:41 Pulse Ox 94 03/11/25 10:41 Oxygen Delivery Method Room Air 03/11/25 10:41 BMI result Body Mass Index 34.8 Const General: alert HEENT Head: Yes contusion, Yes scalp lesion, Yes scalp tenderness and Yes other (bruising) General nose exam: Abnormal mucous membranes and turbinates present erythematous and other (papules) Eyes Pupils: Equal, round and reactive pupils present Neck Neck: Yes normal visual inspection, Yes full ROM and Yes no lymphadenopathy Chest Chest palpation & inspection: normal inspection of the chest Resp Effort & Inspection: normal respiratory effort and No prolonged expiratory phase Auscultation: no rhonchi, no wheezes and diminished lung sounds Cardio Rate: regular rate Rhythm: regular rhythm Heart sounds: S1 normal heart sound present and S2 normal heart sound present GI Palpation (GI): Soft to palpation and nontender Auscultation: normal bowel sounds General: Yes no CVA tenderness Back/Spine/Pelvis Back: no CVA tenderness Skin General skin exam: rashes and/or lesions noted Neuro Cranial nerves: Yes Equal, round and reactive pupils present Assessment & Plan Assessment & Plan (1) Asthma: Code(s): J45.909 - Unspecified asthma, uncomplicated Category: Medical Qualifiers: Asthma complication type: uncomplicated Asthma persistence: persistent Asthma severity: severe Qualified Code(s): J45.50 - Severe persistent asthma, uncomplicated (2) Chronic allergic rhinitis: Code(s): J30.9 - Allergic rhinitis, unspecified Category: Medical (3) Pulmonary nodules: Code(s): R91.8 - Other nonspecific abnormal finding of lung field Category: Medical (4) Insomnia: Code(s): G47.00 - Insomnia, unspecified Category: Medical Qualifiers: Insomnia type: primary Qualified Code(s): F51.01 - Primary insomnia (5) Bronchitis: Code(s): J40 - Bronchitis, not specified as acute or chronic Category: Medical (6) Dyspnea on exertion: Code(s): R06.09 - Other forms of dyspnea Category: Medical Plan conitnue Xopenex as needed stop fasenra SC every 2 months start Dupixent for severe asthma and refractory atopic dermatitis bloodwork ECHO CXR overnight oximetry on RA continue acapella valve for CPT continue Trelegy 200mcg nasal rinsing Fluticasone nasal spray STEPAN as needed short-acting beta agonist as needed F/U 2 months Orders: Orders Complete Blood Count Auto Diff Today J45.50 - Severe persistent asthma, uncomplicated Immunoglobulins,IgG IgA IgM Today J45.50 - Severe persistent asthma, uncomplicated Erythrocyte Sedimentation Rate Today J45.50 - Severe persistent asthma, uncomplicated Immunoglobulin E Today J45.50 - Severe persistent asthma, uncomplicated Basic Metabolic Panel Today J45.50 - Severe persistent asthma, uncomplicated XR chest 2V Today J40 - Bronchitis, not specified as acute or chronic CA echo transthoracic complete Today I27.20 - Pulmonary hypertension, unspecified Overnight Pulse Oximetry Today Medications: New benzonatate 200 mg PO BID PRN 60 caps 0RF cough 30 days Refilled codeine-guaifenesin 10-100 mg/5 mL 10 mL PO Q6H PRN 300 mL 0RF cough 10 days Coding Level of Care Code Est Pt Level 4 (06743) Complex EM visit Add On G2211 Diagnoses Severe persistent asthma without complication J45.50 Asthma complication type: uncomplicated Asthma persistence: persistent Asthma severity: severe Chronic allergic rhinitis J30.9 Pulmonary nodules R91.8 Primary insomnia F51.01 Insomnia type: primary Bronchitis J40 Dyspnea on exertion R06.09 Time Spent (min) 17
[2025-03-11 10:41] VITALS: BP 110/62; PULSE 73; O2SAT 94; BMI 34.8
--- OUTSIDE RECORDS SUMMARY | 2025-03-11 11:25 | XMS_ITS ---
Author Organization [facility] Address [address] [place] [phone] Care Team Providers Care Tuyere Fitter Name Role Phone Arnulfo Barry MD Primary Care Provider Unavailab Flores Astudillo Unavailable [phone] Encounters Encounter Location Date Provider Diagnosis [address] [phone] 11/28/2024 Flores Lowry Plan Of Treatment Next Appt Details Provider Name:Flores A Alen , 04/07/2025 11:30:00 AM, [address] [place] [address], [phone], Provider Name:Flores A Alen , 06/12/2025 11:15:00 AM, [address] [place] [address], [phone], Progress Notes * CHERRIE Letty ADOB:[birth year] (79 yo F)Acc No.[id number]:11/28/2024 Progress Note Patient:?Letty WOOD Provider:?Flores Lowry DPM :1945???Age:79 Y???Sex:Female D ate:11/28/2024 Address:[address] [place] [address] Wilfredo [id number] Pcp:Arnulfo Barry MD Subjective: * Chief Complaints: * ??? * Medical History:? Objective: * Vitals:? Assessment: Plan: * Treatment: * Images: * The named appointment provid er may or may not be the originator of this progress note, and it is not deemed complete until electronically signed by the appointment provider. Sign off status: Pending * Provider:Barbara Lowry DPM Date:?2024 Generated for Duran cunha/Ila/Farideh on:?03/11/2025 11:25 AM EDT
== END 2025-03-11 11:15 | disposition home or self-care (01) ==
LOC: HO.HPS 10:38
PROVIDERS: PCP Internal Medicine; Visit Provider Hospitalist
DX: J45.50 Severe persistent asthma, uncomplicated (principal); J30.9 Allergic rhinitis, unspecified; R91.8 Other nonspecific abnormal finding of lung field; F51.01 Primary insomnia; J40 Bronchitis, not specified as acute or chronic; R06.09 Other forms of dyspnea
CPT/HCPCS: 99214; G2211

== ENCOUNTER → 2025-03-11 11:45 | Outpatient (BNV) | payer MEDICARE, MEDICAID, SELFPAY | PROVIDERS: PCP Internal Medicine; Visit Provider Radiology Diagnostic Radiology | DX: J40 Bronchitis, not specified as acute or chronic (principal) | CPT/HCPCS: 71046 ==

== ENCOUNTER 2025-03-25 13:21 | Outpatient (AMB) | payer MEDICARE, MEDICAID, SELFPAY ==
--- NOTE | 2025-03-25 14:31 | MHC.OFFVIS ---
Vital Signs 03/25/25 14:34 Height 5 ft 1 in Pulse 115 H Pulse Source Pulse Oximeter Pulse Oximetry (%) 97 Oxygen Delivery Method Room Air Intake Visit Reasons: dupixent teach Allergies doxycycline Allergy (Severe, Verified 03/25/25 14:35) GI Upset Demerol Allergy (Severe, Uncoded 03/25/25 14:35) vomitting Meperidine Allergy (Severe, Uncoded 03/25/25 14:35) Dry Mouth Medication List - Last Reconciled 03/25/25 by Marixa Miguel LPN albuterol sulfate 90 mcg/actuation 2 puffs inhalation Q6H PRN amlodipine 5 mg PO DAILY benralizumab (Fasenra) 30 mg subcut Q8W 56 days benzonatate 200 mg PO BID PRN 30 days celecoxib 50 mg PO BID codeine-guaifenesin 10-100 mg/5 mL 10 mL PO Q6H PRN 10 days duloxetine 60 mg PO DAILY dupilumab (Dupixent) loading dose: 600mg SC x 1, then 300mg SC every 2 weeks 4 weeks fentanyl 50 mcg/hr 1 patch topical Q3D fluticasone propionate 50 mcg/actuation 2 sprays intranasal DAILY 30 days iqkhhnibfdz-nykttjgob-ymyjcrcq 200-62.5-25 mcg (Trelegy Ellipta) 1 ea PO DAILY 30 days ibuprofen 600 mg PO TID PRN lansoprazole 30 mg PO DAILY levalbuterol HCl 1.25 mg (3 mL) inhalation BID lidocaine 5% (Lidoderm) 1 patch topical DAILY 30 days lisinopril-hydrochlorothiazide 20-25 mg 2 tabs PO DAILY metoprolol succinate ER 50 mg PO DAILY montelukast 10 mg PO BEDTIME mupirocin 2% 1 appl topical BID 10 days nebulizers As directed oxycodone 5 mg PO QID PRN potassium chloride ER 10 mEq PO DAILY pregabalin mg PO roflumilast 500 mcg PO DAILY 30 days tiotropium bromide 2.5 mcg/actuation (Spiriva Respimat) 2 puffs inhalation DAILY HPI HPI dupixent teach: Details: Sahara is here for a Dupixent teach she was educated on hand washing, injection preparation, administration, and disposal.? Pat was able to return demonstrate proper technique for hand washing, injection preparation, administration and disposal of needle and states she has no questions at this time. Medication Dupixent 300mg/2mL auto-injector (patient?s own meds) Loading dose of 600mg given by the patient in 2 SQ injections; injection #1 R thigh;? injection #2 L abdomen Lot# [id number] expires 07/15/2026. Patient aware her next injection is in 15 days. Nurse visit only.? [facility] Medical History (Updated 03/11/25 @ 20:50 by Oleg Cline MD) Dyspnea on exertion Pre-op chest exam Pleuritic chest pain Asthma Insomnia Chronic allergic rhinitis COPD (chronic obstructive pulmonary disease) Pulmonary nodules Social History Patient Tobacco Use Status: Former Tobacco user Tobacco use type: Cigarette Years Smoked: 45 Years Physical Exam Vital Signs: Last Vital Signs Pulse 115 H 03/25/25 14:34 Pulse Ox 97 03/25/25 14:34 Oxygen Delivery Method Room Air 03/25/25 14:34 Assessment & Plan Assessment & Plan (1) Asthma: Code(s): J45.909 - Unspecified asthma, uncomplicated Category: Medical Qualifiers: Asthma complication type: uncomplicated Asthma persistence: persistent Asthma severity: severe Qualified Code(s): J45.50 - Severe persistent asthma, uncomplicated Plan: start Dupixent Coding Level of Care Code Established Pt Est Pt Level 1 (09343) Patient Type Established Diagnoses Severe persistent asthma without complication J45.50 Asthma complication type: uncomplicated Asthma persistence: persistent Asthma severity: severe Comment NURSE VISIT ONLY
[2025-03-25 14:34] VITALS: PULSE 115; O2SAT 97
--- OUTSIDE RECORDS SUMMARY | 2025-03-25 15:48 | XMS_ITS ---
Author Organization [facility] Address [address] [place] [phone] Care Team Providers Care Technical Operations Vice President Name Role Phone Arnulfo Barry MD Primary Care Provider Unavailab Flores Astudillo Unavailable [phone] Encounters Encounter Location Date Provider Diagnosis [address] [address] 11/28/2024 Flores Lowry Plan Of Treatment Next Appt Details Provider Name:Flores A Alen , 04/07/2025 11:30:00 AM, [address] [place] [address], [phone], Provider Name:Flores A Alen , 06/12/2025 11:15:00 AM, [address] [place] [address], [phone], Progress Notes * CHERRIE Letty ADOB:[birth year] (79 yo F)Acc No.[id number]:11/28/2024 Progress Note Patient:?Letty WOOD Provider:?Flores Lowry DPM :1945???Age:79 Y???Sex:Female D ate:11/28/2024 Address:[address] [place] [address] Wilfredo [phone] Pcp:Arnulfo Barry MD Subjective: * Chief Complaints: [...] Lowry DPM Date:?2024 Generated for Duran cunha/Ila/Farideh on:?03/25/2025 03:47 PM EDT
== END 2025-03-25 14:40 | disposition home or self-care (01) ==
LOC: HO.HPS 13:21
PROVIDERS: PCP Internal Medicine; Visit Provider Hospitalist
DX: J45.50 Severe persistent asthma, uncomplicated (principal)

== ENCOUNTER → 2025-03-25 13:21 | Outpatient (BNVA) | payer MEDICARE, MEDICAID, SELFPAY | PROVIDERS: PCP Internal Medicine; Visit Provider Hospitalist | DX: J45.50 Severe persistent asthma, uncomplicated (principal) | CPT/HCPCS: 99211 ==

== ENCOUNTER 2025-04-24 13:18 | Outpatient (AMB) | payer MEDICARE, MEDICAID, SELFPAY ==
--- OUTSIDE RECORDS SUMMARY | 2024-11-28 07:30 | XMS_ITS ---
Author Organization [facility] Address [address] [place] [id number] Care Team Providers Care Software Project Engineer Name Role Phone Arnulfo Barry MD Primary Care Provider Unavailab Flores Astudillo [phone] Encounters Encounter Location Date Provider Diagnosis [address] [phone] 11/28/2024 Flores Lowry Plan Of Treatment Next Appt Details Provider Name:Flores Maria Alen , 06/12/2025 11:15:00 AM, [address] [place] [address], [phone], Provider Name:Flores A Alen , 08/14/2025 10:15:00 AM, [address] [place] [address], [phone], Progress Notes * CHERRIESaharaLetty ADOB:[birth year] (79 yo F)Acc No.[id number]:11/28/2024 Progress Note Patient: Letty ZEPEDA Provider: Miguel Lowry DPM :1945 A ge:79 Y S ex:Female Date:11/28/2024 Address:[address] [place] [address] Wilfred[place] [id number] Pcp:Arnulfo Barry MD Subjective: * Chief Complaints: * * Medical History: Objective: * Vitals: Assessment: Plan: * Treatment: * Images: * The named appointment provid er may or may not be the originator of this progress note, and it is not deemed complete until electronically signed by the appointment provider. Sign off status: Pending * Provider: Miguel Lowry DPM Date: 11/28/2024 Generated for Duran cunha/Ila/Farideh on: 04/24/2025 01:21 PM EDT
[2025-04-24 13:20] VITALS: BP 160/78; PULSE 80; O2SAT 95; BMI 35.0
--- NOTE | 2025-04-24 13:20 | A.OFFVIS_ITS ---
Vital Signs 04/24/25 13:20 Height 5 ft 1 in Weight 185 lb 3.013 oz BMI 35.0 BP 160/78 H Blood Pressure Location Rt brachial Position Sitting Pulse 80 Pulse Source Pulse Oximeter Pulse Oximetry (%) 95 Oxygen Delivery Method Room Air Intake Visit Reasons: Cough Allergies doxycycline Allergy (Severe, Verified 04/24/25 13:24) GI Upset Demerol Allergy (Severe, Uncoded 03/25/25 14:35) vomitting Meperidine Allergy (Severe, Uncoded 03/25/25 14:35) Dry Mouth HPI Comments Details: The patient is a 79-year-old woman with known chronic bronchitis in addition to reflux disease and chronic pain issues. Overall she has been doing fairly well on it current respiratory regimen. She has been able to stay healthy and stay off prednisone. She has been using the azithromycin Monday and Monday. Usually 250 mg. Sometimes when she gets sick we do increased to 500. Patient understands that the medication get effect her EKG and assess her QT. Therefore, during the next visit will have to check her EKG. She continues using Daliresp. Denies any GI symptoms from the medication. She continues her respiratory therapy. She has not had to take any prednisone. She did have a CT chest back in 03/2019 with numerous pulmonary nodules. 03/04/2024 the patient is here for a pulmonary follow-up visit. She has feeling a lot better from a respiratory symptoms. She is back to her baseline. She is very appreciative by the fact that her medications have been helping her and she has been feeling better from a breathing standpoint. However, she did develop a severe pain on the bottom of her right chest area while trying to bend over and lean over something to try to reach something. By doing that movement she felt a pop in that developing pain in 1 of her rib areas. She has not sure if she pulled muscle or if she hurt her rib. It is definitely tender to the touch. She has a hard time taking a deep breath in. Likely floating rib based on the location. The patient also has a slight rash over the airway. Doubt that is shingles but is also in differential. Will try putting Lidoderm patch in the area. She can also try some muscle relaxant to see the provide some relief. In the meantime she continues with the Fasenra injection which is very helpful for her. She continues with respiratory therapy as well. If the patient is not better from the pain she can always get an x-ray with rib series to make sure that we do not see any fracture ribs to explain her symptoms. 08/05/2024 the patient is here for a pulmonary follow-up visit. She has a preoperative evaluation today for total knee replacement that is going to occur sometime this week. She is doing well from a respiratory status. She has been on Trelegy taking daily. In addition to that she had been on the Fasenra biologic therapy that has been very affecting beneficial. She still having some chest congestion at times. [id number] severity. Primarily when she lies flat. This has to do with the fact that her dog sick and she is having to put the bed down. I am hopeful that she can bring the bed up a little bit higher though. In the meantime her respiratory exam is reassuring. At this point she may able to proceed with anesthesia and surgery this time. She does have moderate risk for perioperative pulmonary complications which includes; atelectasis hypoxia pneumonia and COPD exacerbations. But at this point the patient is medically optimized may be able to proceed with surgery. 09/09/2024 the patient is here for a pulmonary follow-up visit. Overall she is doing well from a respiratory status. The Trelegy inhaler has been very affecting beneficial. She also has been on the Fasenra injections also been jacqueline y affecting beneficial. She has not had to use her rescue inhaler but right now is it make sure that she has a new 1. In the meantime she did have a knee done and the patient unfortunately had a fall hurting her knee replacement and also she fracture left facial bones. She is going to follow-up with the specialists for that. She has been on aspirin to avoid blood clots right now. Her breathing is very good right now. She is going to continue working with physical therapy in orthopedist in specialist regarding her facial fractures better from a pulmonary standpoint she will continue with the current regimen that is been very effective in beneficial for her. 03/11/2025 the patient is here for a pulmonary follow-up visit. She still complains of significant productive cough and ongoing coughing shortness of breath. The Fasenra has not been very helpful. She also has significant atopic dermatitis that seems to be getting worse. Therefore, since she is already on biologic therapy with Fasenra will go ahead and switch over to Dupixent and she failed Fasenra therapy. Will go ahead and request additional blood work at this time as well. She did follow-up with Dermatology in the did also recommend she switch over to Dupixent at this time. Hopefully this will helps her symptoms. In the meantime she continues on the Trelegy inhaler. She was continues with a cough. Will try the Tessalon Perles symptoms provide some relief although they may not be covered. In the meantime we did go for a walking oximetry in the office in although she did not qualify for oxygen with activity she did drop down to 91%. She also had evidence of electrical alternans bringing up the possibility of a cardiac etiology. Therefore going to request an echocardiogram. She is also going to follow-up with the primary care doctor soon and she can talk to them about additional cardiac evaluations. Today after the visit she is going to undergo blood work and also chest x-ray. If anything is abnormal let her know. Otherwise will follow-up in 6-8 weeks. 04/24/2025 the patient is here for pulmonary follow-up visit. Overall the patient has been doing okay. She did switch over to the Dupixent seems to be tolerating it well. She has not seen any significant improvement though. Explained to her that it is still too early. Only she is tolerating it without any adverse effects. The patient also is waiting for her echocardiogram and also the overnight oximetry has not been done yet. I did send a message to reach out to the DME in order to get the overnight oximetry as soon as possible. Her major complaint is cough at nighttime. It may be related to reflux or postnasal drip but just irritation to the larynx. She does appear to have some hoarseness. Also, she had been on lisinopril as far as her blood pressure medications in several weeks ago she was taken off. So hopefully once the medication completely wears off her cough also improved. At this point will continue with the current respiratory therapy she can use the Tessalon Perles prior to sleep and also she can use her rescue inhaler prior to going to sleep to see if this can provide her with her ongoing cough symptoms at nighttime. She does have her Trelegy inhaler that she uses in the morning with very good effect. [facility] Medical History (Updated 03/11/25 @ 20:50 by Oleg Cline MD) Dyspnea on exertion Pre-op chest exam Pleuritic chest pain Asthma Insomnia Chronic allergic rhinitis COPD (chronic obstructive pulmonary disease) Pulmonary nodules Social History Patient Tobacco Use Status: Former Tobacco user Tobacco use type: Cigarette Years Smoked: 45 Years Review of Systems Const Reports fatigue and Denies night sweats ENT Reports as per HPI, Denies change in voice, Denies lip swelling, Denies mouth pain, Reports nasal congestion, Reports nasal discharge, Reports post nasal drip and Denies tongue swelling Card Denies chest pain, Denies dyspnea and Reports dyspnea on exertion Resp Denies change in phlegm color, Reports chest congestion, Reports cough, Denies hemoptysis, Reports pain on inspiration, Reports pain with cough, Denies dyspnea, Reports dyspnea on exertion and Denies wheezing GI Denies abdominal pain Musc Reports as per HPI, Reports myalgias, Reports arthralgias, Reports joint swelling, Reports limited range of motion, Reports muscle weakness, Reports numbness and Reports stiffness Skin/Breast Reports unusual bruising Neuro Denies Neuro-related abnormal movements and Reports numbness Psych Denies no additional complaints Endo Reports fatigue Harman/Lymph Denies easy bleeding and Denies lymphadenopathy Aller/Immun Denies lip swelling, Denies tongue swelling and Denies wheezing Physical Exam Vital Signs: Last Vital Signs Pulse 80 04/24/25 13:20 BP 160/78 H 04/24/25 13:20 Pulse Ox 95 04/24/25 13:20 Oxygen Delivery Method Room Air 04/24/25 13:20 BMI result Body Mass Index 35.0 Const General: alert HEENT Head: Yes contusion, Yes scalp lesion, Yes scalp tenderness and Yes other (bruising) General nose exam: Abnormal mucous membranes and turbinates present erythematous and other (papules) Eyes Pupils: Equal, round and reactive pupils present Neck Neck: Yes normal visual inspection, Yes full ROM and Yes no lymphadenopathy Chest Chest palpation & inspection: normal inspection of the chest Resp Effort & Inspection: normal respiratory effort and No prolonged expiratory phase Auscultation: no rhonchi, no wheezes and diminished lung sounds Cardio Rate: regular rate Rhythm: regular rhythm Heart sounds: S1 normal heart sound present and S2 normal heart sound present GI Palpation (GI): Soft to palpation and nontender Auscultation: normal bowel sounds General: Yes no CVA tenderness Back/Spine/Pelvis Back: no CVA tenderness Skin General skin exam: rashes and/or lesions noted Neuro Cranial nerves: Yes Equal, round and reactive pupils present Assessment & Plan Assessment & Plan (1) Asthma: Code(s): J45.909 - Unspecified asthma, uncomplicated Category: Medical Qualifiers: Asthma complication type: uncomplicated Asthma persistence: persistent Asthma severity: severe Qualified Code(s): J45.50 - Severe persistent asthma, uncomplicated (2) Chronic allergic rhinitis: Code(s): J30.9 - Allergic rhinitis, unspecified Category: Medical (3) Pulmonary nodules: Code(s): R91.8 - Other nonspecific abnormal finding of lung field Category: Medical (4) Insomnia: Code(s): G47.00 - Insomnia, unspecified Category: Medical Qualifiers: Insomnia type: primary Qualified Code(s): F51.01 - Primary insomnia (5) Bronchitis: Code(s): J40 - Bronchitis, not specified as acute or chronic Category: Medical (6) Dyspnea on exertion: Code(s): R06.09 - Other forms of dyspnea Category: Medical Plan conitnue Xopenex as needed continue Dupixent for severe asthma and refractory atopic dermatitis ECHO overnight oximetry on RA continue acapella valve for CPT continue Trelegy 200mcg nasal rinsing Fluticasone nasal spray STEPAN as needed short-acting beta agonist as needed Benzonates as needed for cough Stopped DONNY 2 weeks ago F/U 3-4 months Medications: Refilled benzonatate 200 mg PO BID PRN 60 caps 6RF cough 30 days Coding Level of Care Code Est Pt Level 4 (56997) Complex EM visit Add On G2211 Diagnoses Severe persistent asthma without complication J45.50 Asthma complication type: uncomplicated Asthma persistence: persistent Asthma severity: severe Chronic allergic rhinitis J30.9 Pulmonary nodules R91.8 Primary insomnia F51.01 Insomnia type: primary Bronchitis J40 Dyspnea on exertion R06.09 Time Spent (min) 17
--- OUTSIDE RECORDS SUMMARY | 2025-04-24 13:22 | XMS_ITS | Clinical Summary ---
Author Organization [facility] Address [address] [place] [address] Care Team Providers Care Hunter Skin Diver Name Role Phone Jorge Driscoll MD Primary Care Provider [phone] Surgical History Surgery Date Site/Laterality Comments HYSTERECTOMY PROCEDURE: HISTORICAL HYSTERECTOMY TOTAL KNEE ARTHROPLASTY PROCEDURE: HISTORICAL TOTAL KNEE REPLACE BACK SURGERY PROCEDURE: HISTORICAL BACK SURGERY Medical History Medical History Date Comments Total knee replacement status 08/18/2017 DX :Total knee replacement status Lung nodule 06/29/2017 DX:Lung nodule Hypertension 08/18/2017 DX:Hypertension GERD (gastroesophageal reflux disease) 08/18/2017 DX:GERD (gastroesophageal reflux disease) Osteoarthritis 08/18/2017 DX:Osteoarthriti s Thoracic compression fractur e ([facility] V24, [facility] V28) 12/26/2017 DX:Thoracic compression frac ture ([facility]); COMMENT: T2 & T11 History of substance abuse ( [facility] V24, [facility] V28) 12/26/2017 DX:History of substance abus e (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 V24, [facility] V28) 11/02/2017 DX:COPD (chronic o bstructive pulmonary disease) ([facility]) Obstructive sleep apnea syndrome 07/02/2017 DX:Obstructive sleep apnea syndrome Family History Medical History Relation Name Comments Diabetes Brother COPD,CAD, Hyper tension, Depression/Anxiety COPD Father Hypertension, C olon polyps Diabetes Mother Hypertension, H ypothyroidism, Depression/Anxiety Relation Name Status Comments Brother Father Mother Social History Tobacco Use Types Packs/Day Years Used Date Smoking Tobacco: Former Cigarettes Smokeless Tobacco: Never Alcohol Use Standard Drinks/Week Comments No 0 (1 standard drink = 0.6 oz pur e alcohol) Comments Unknown Sex and Gender Information Value Date Recorded Sex Assigned at Not on file Legal Sex Female 6:41 AM EST Gender Identity Not on file Sexual Orientation Not on file Obstetrics History Plan of Treatment Health Maintenance Due Date Last Done Comments DTaP,Tdap,and Td Vaccines (1 - Tdap) 1964 Pneumococcal Vaccine: 50+ Years (1 of 2 - PCV) 1963 Zoster Vaccines (1 of 2) 1994 RSV Immunization Adult Patients (1 - 1-dose 75+ series) 2019 Cholesterol Screening (Lipid Panel) 09/18/2022 Depression Screening 09/18/2022 Falls Risk Assessment 09/18/2022 Social Influencers of Health Screening 09/18/2022 Hypertension/CHF/CAD Annual BMP Blood Test 10/01/2022 COVID-19 Vaccine ( - 2023-2 5 season) 2024 Influenza Vaccine (#1) 2025 0, 11/02/2017 Osteoporosis Screening (Bone Density Screening) 08/31/2032 08/31/2022 HIB Vaccines Aged Out No longer eligi ble based on patient's age to complete this topic HPV Vaccines Aged Out No longer eligi ble based on patient's age to complete this topic Hepatitis A Vaccines Aged Out No long er eligible based on patient's age to complete this topic Hepatitis B Vaccines Aged Out No long er eligible based on patient's age to complete this topic IPV Vaccines Aged Out No longer eligi ble based on patient's age to complete this topic MMR Vaccines Aged Out No longer eligi ble based on patient's age to complete this topic Meningococcal ACWY Vaccine Aged Out N o longer eligible based on patient's age to complete this topic Meningococcal B Vaccine Aged Out No l onger eligible based on patient's age to complete this topic RSV Immunization Patients Under 20 months Aged Out No longer eligible b ased on patient's age to complete this topic Varicella Vaccines Aged Out No longer eligible based on patient's age to complete this topic Procedures Procedure Name Priority Date/Time Associated Diagnosis Comments NASIM DEXA AXIAL SKELETON Routine 08/31/2022 7:38 AM EST Encounter for screening for osteoporosis from Last 3 Months or Most Recently Relevant to Health Maintenance Results * [facility] DEXA AXIAL SKELETON (08/31/2022 7:38 AM EST) Anatomical Region Laterality Modality Mammography 08/30/2022 11:0 6 AM EST Narrative 08/31/2022 7:38 AM EST [facility] Diagnostic Imaging Department [address] [place] [id number] Patient: LETTY WOOD Crow Ferguson./Age/Sex: 1945 - 77 - F Unit#: [id number] Location/Status: [facility] Mnemonic/Ordering Site: [facility] Ordering Physician: JORGE DRISCOLL MD [facility] Dexa Axial Skeleton - 08/30/22 - 4924 HISTORY: The patient is a 77-year-old postmenopausal female with clinical concern for metabolic bone disease. FINDINGS: Dual energy x-ray absorptiometry of the lumbar spine and femurs is performed. The mean bone mineral density at L1-2 is 0.956 gm/cm2 which is 82% of that of young normals and 95% of that of age matched controls. This yields a T- score of -1.7 and a Z-score of -0.4 which is diagnostic of osteopenia. The mean bone mineral density of the femurs bilaterally is 0.847 gm/cm2 which is 84% of that of young normals and 104% of that of age matched controls. This yields a T-score of -1.3 and a Z-score of 0.3 which is diagnostic of osteopenia. The T-score of the right femoral neck is -2.0 and that of the left femoral neck is -2.4 which is diagnostic of osteopenia. IMPRESSION: 1. Osteopenia. There has been a decrease of 12.2% in bone mineral density in the lumbar spine since the prior examination of 08/14/2013. There has been a decrease of 11.9% in bone mineral density in the right femur and a decrease of 0.2% in bone mineral density in the left femur. 2. FRAX analysis yields a 10-year probability of major osteoporotic fracture of 29.7% and a 10-year probability of hip fracture of 8.8%. Code 30596 Dictating Physician: DEANA HENSLEY MD Electronically Signed by: DEANA HENSLEY MD Dic Date/Time: 08/31/22735 Sign date/Time: 08/31/22737 Procedure Note Deana Hensley MD - 11/17/2023 [facility] Diagnostic Imaging Department [address] [place] [address] Patient: CHERRIELETTY Maria D.O.B./Age/Sex: 1945 - 77 - F Unit#: [id number] Location/Status: [facility] Ordering Physician: JORGE DRISCOLL MD [facility] Dexa Axial Skeleton - 08/30/22 3522 HISTORY: The patient is a 77-year-old postmenopausal female withclinical concern for metabolic bone disease. FINDINGS: Dual energy x-ray absorptiometry of the lumbar spine and femursis performed. The mean bone mineral density at L1-2 is 0.956 gm/cm2 which is82% of that of young normals and 95% of that of age matched controls. This yieldsa T- score of -1.7 and a Z-score of -0.4 which is diagnostic of osteopenia. The mean bone mineral density of the femurs bilaterally is 0.847 gm/yu1jvvph is 84% of that of young normals and 104% of that of age matched controls.This yields a T-score of -1.3 and a Z-score of 0.3 which is diagnostic ofosteopenia. The T-score of the right femoral neck is -2.0 and that of the left femoralneck is -2.4 which is diagnostic of osteopenia. IMPRESSION: 1. Osteopenia. There has been a decrease of 12.2% in bone mineral densityin the lumbar spine since the prior examination of 08/14/2013. There hasbeen a decrease of 11.9% in bone mineral density in the right femur and adecrease of 0.2% in bone mineral density in the left femur. 2. FRAX analysis yields a 10-year probability of major osteoporoticfracture of 29.7% and a 10-year probability of hip fracture of 8.8%. Code 13843 Dictating Physician: DEANA HENSLEY MD Electronically Signed by: DEANA HENSLEY MD Dic Date/Time: 08/31/22 0736 Sign date/Time: 08/31/22 0738 Jorge Driscoll MD IMG BI PROCEDURES Final Result from Last 3 Months or Most Recently Relevant to Health Maintenance Care Teams Hunter Skin Diver Relationship Specialty Start Date End Date Jorge Driscoll MD PCP - General 10/16/1991
--- OUTSIDE RECORDS SUMMARY | 2025-04-24 13:22 | XMS_ITS | Patient Health Record ---
Author Organization [facility] Address [address] [place] [id number] Care Team Providers Care Green Material Value Added Assessor Name Role Phone Tej David Unavailable [phone] Reason For Referral No Information Plan Of Treatment No Information
== END 2025-04-24 13:49 | disposition home or self-care (01) ==
LOC: HO.HPS 13:19
PROVIDERS: PCP Internal Medicine; Visit Provider Hospitalist
DX: J45.50 Severe persistent asthma, uncomplicated (principal); J30.9 Allergic rhinitis, unspecified; R91.8 Other nonspecific abnormal finding of lung field; F51.01 Primary insomnia; J40 Bronchitis, not specified as acute or chronic; R06.09 Other forms of dyspnea
CPT/HCPCS: 99214; G2211

== ENCOUNTER → 2025-04-24 13:18 | Outpatient (BNVA) | payer MEDICARE, MEDICAID, SELFPAY | PROVIDERS: PCP Internal Medicine; Visit Provider Hospitalist | DX: J45.50 Severe persistent asthma, uncomplicated (principal); J30.89 Other allergic rhinitis; J42 Unspecified chronic bronchitis; R06.09 Other forms of dyspnea; R91.8 Other nonspecific abnormal finding of lung field; F51.01 Primary insomnia | CPT/HCPCS: 99212 ==

== ENCOUNTER → 2025-04-30 13:05 | Outpatient (REF) | payer MEDICARE, MEDICAID, SELFPAY ==
--- NOTE | 2025-04-30 13:08 | CA_ITS ---
Transthoracic Echocardiogram Amended Patient (Last, First, Middle): Letty Wood A Gender: Female Date of : 1945 Age: 79 Procedure Date: 04/30/2025 Procedure Type: Transthoracic Echocardiogram Location: OP Height: 154.94 cm Weight: 83.92 kg BSA: 1.83 m2 Heart Rate: bpm BP: 160 / 78 mmHg Filler Shredder Helper: MACK Referring MD: Oleg Cline MD Symptoms: I27.20 - Pulmonary hypertension, unspecified Study Quality: Fair ECG Rhythm: Sinus tachycardia Conclusions: - The left ventricular systolic function is normal. The visually estimated ejection fraction is between 55-60%. - No obvious valvular pathology seen on this study. - There is no evidence of pulmonary hypertension. Findings Left Ventricle Normal left ventricular cavity size. There is mildly increased left ventricular wall thickness. The left ventricular systolic function is normal. The visually estimated ejection fraction is between 55-60%. There is no evidence of regional wall motion abnormalities. Diastolic function is indeterminate on the basis of available data. Right Ventricle Normal right ventricular cavity size and systolic function. Atria Both atria are normal in size. Aortic Valve There is a normal trileaflet aortic valve. There is no aortic valve stenosis. There is no aortic valve regurgitation. Mitral Valve The mitral valve appears normal. There is no mitral valve regurgitation. There is no mitral valve stenosis. Pulmonic Valve The pulmonic valve is likely normal. Tricuspid Valve There is trace tricuspid valve regurgitation. There is no evidence of pulmonary hypertension. Great Vessels The asc aorta is normal in size. Venous The inferior vena cava is normal in size and collapses greater than 50% with inspiration. Pericardium/Pleural There is no evidence of pericardial effusion. Prior Study Comparison No prior study available for comparison. Recommendations, Care & Conclusions No obvious valvular pathology seen on this study. Measurements 2D Linear Measurements IVSd: 1.02 0.6-0.9/0.6-1.0 cm LVIDd: 4.12 3.9-5.3/4.2-5.9 cm LVIDd Index: 2.25 2.4-3.2/2.2-3.1 cm/m2 LVIDs: 2.86 2.0-3.6 cm LVPWd: 1.12 0.7-1.1 cm LA Diam: 3.60 2.7-3.8/3.0-4.0 cm LAIDs Index: 1.97 1.5-2.3 cm/m2 LV Mass: 182.40 67-162/88-224 g LV Mass Index: 99.67 43-95/49-115 g/m2 LVOT Diam: 2.00 3.0+(-)1.3 cm 2D Volumes LA Vol: 25.90 2D Systolic Function EF 4C: 55.30 >55% EF 2C: 48.40 >55% EF BiP: 52.70 >55% Aortic Valve AoV Pk Star: 1.50 AoV Mn Star: 1.00 AoV VTI: 0.25 AoV Pk Grad: 9.00 Aov Mn Grad: 5.00 KALI Cont.VTI: 2.61 LVOT LVOT Pk Star: 1.22 LVOT Mn Star: 0.83 LVOT VTI: 0.21 LVOT Pk Grad: 6.00 LVOT Mn Grad: 3.00 LVOT Diam: 2.00 LVOT Area: 3.14 Right Ventricle TAPSE (mm): 21.70 TVS' Star: 11.00 Tricuspid Valve TR Pk Star: 1.89 TR Pk Grad: 14.00 RA Press: 3.00 RVSP: 17.00 Great Vessels Aorta Sinus of Valsalva: 3.50 2.0-3.5 cm Ao Asc: 3.70 2.1-3.4 cm Updated in Other Vendor System with Status of Final Jack West MD electronically signed on 05/02/2025 10:11:17 AM with status of Final
--- OUTSIDE RECORDS SUMMARY | 2025-04-30 13:56 | XMS_ITS | Data Portability ---
Author Organization [place] - [facility], Allergy Address [address] [place] [address] Care Team Providers Care Analytics Analyst Name Role Phone JORGE DRISCOLL Primary Care Provider [phone] Assessment No assessment recorded. Plan of Treatment Reminders Order Date Submit Date Provider Last Modified By Organization Details Last Modified Time Details Appointments None recorded. Lab None recorded. Referral None recorded. Procedures None recorded. Surgeries None recorded. Imaging MRI, brain + internal auditory canal, w/wo contrast - MRI, BRAIN + INTERNAL AUDITORY CANAL, W/WO CONTRAST 2023 024 [facility] ([facility]), [address] [place], [address], 16:05:51 Medication Orders None recorded. Patient TargetsNo targets recorded. Patient InstructionsNo instructions recorded. Reason for Referral None Reported. Results Created Date Observation Date Name Description Value Unit Range Abnormal Flag Note LastModifiedBy Organization Detail LastModifiedTime 08/05/2008/01/2024 audio gram No observ ation record ed. [email or web address] Not Available 2023 15:27:07 08/06/20 24 12/04/2021 CT, brain , w/o contr ast No observ ation record ed. [email or web address] Not Available 2023 11:35:07 08/07/20 24 01/21/2016 audio gram No observ ation record ed. 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 AUDITO RY CANAL, W/WO CONTRA ST\E E\[facility] (MRI, BRAIN + SANITATION WORKER CLEANING EQUIPMENT AL AUDITO RY CANAL, W/WO CONTRA ST), Clinic al Indica tion: Asymme tric sensor ineura l hearin g loss Reason For Exam: H90.3 - Sensor ineura l hearin g loss, bilate ral, , MRI, 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 17 mL Dotare m intrav enous contra st was admini stered . COMPAR JULIET: Brain MRI 2021. FINDIN GS: Image qualit y is degrad ed by loyd smith . IAC: There is no mass or abnorm al enhanc ement in the manager internet al audito ry canals or cerebe llopon javan angles . Course and calibe r of the 7th and 8th crania l nerves is normal bilate rally. Fluid signal is preser karey in the inner ear struct ures bilate rally. AICA loops protru sions at the bilate ral manager internet al audito ry canals . BRAIN and EXTRA- AXIAL SPACES : The ventri cles and sulci reflec ting volume loss and there are scatte red nonspe cific T2 hyperi ntensi ties in the white matter most likely reflec ting chroni c small vessel diseas e. EXTRAC RANIAL SOFT TISSUE S: Visual ized portio ns of the extrac ranial soft tissue s are unrema rkable . [facility] catara ct surger y. Elonga tianna globes with probab le staphy enzo. Trace scatte red parana camacho sinus mucosa l thicke arianne. Mucus retent ion cysts in the [facility] sinuse s. BONES: Visual ized marrow signal is preser karey. IMPRES ODILON: No retroc ochlea r abnorm ality to explai n the patien t?s sympto ms. Electr onical ly Signed By: Valerie [email or web address] [facility] ([facility]) [address] [place], [address], 09/25/2024 12:28:47 Result Notes Documentation Provider Name and Address Organization Details Recorded Time Mri, Brain + Brain Stem, W/wo Contrast : [facility] Accession Number: [id number] Patient Name: Letty Wood Date of : 1945 Date of Exam: 09-21-2024 Referring Physician: Beronica Santos [facility] [address] [place] [address] Exam: MR Brain (C-/C+) CPT 70057 [facility] ([facility]-/C+) CPT 02948 INDICATION / CLINICAL QUESTION: Reason For Exam: H90.3 - Sensorineural hearing loss, bilateral, , MRI, BRAIN + INTERNAL AUDITORY CANAL, W/WO CONTRAST\E E\[facility] (MRI, BRAIN + INTERNAL AUDITORY CANAL, W/WO CONTRAST), Clinical Indication: Asymmetric sensorineural hearing loss Reason For Exam: H90.3 - Sensorineural hearing loss, bilateral, , MRI, BRAIN + INTERNAL AUDITORY CANAL, W/WO CONTRAST\E E\[facility] (MRI, BRAIN + INTERNAL AUDITORY CANAL, W/WO CONTRAST), Clinical Indication: Asymmetric sensorineural hearing loss TECHNIQUE: MRI of the brain with attention to the internal auditory canals was performed with and without contrast utilizing sagittal T1, axial T2, axial CISS, axial and coronal T1, and post-contrast axial and coronal T1-weighted sequences. 17 mL Dotarem intravenous contrast was administered. COMPARISON: Brain MRI 08/15/2022. FINDINGS: Image quality is degraded by patient motion. IAC: There is no mass or abnormal enhancement in the internal auditory canals or cerebellopontine angles. Course and caliber of the 7th and 8th cranial nerves is normal bilaterally. Fluid signal is preserved in the inner ear structures bilaterally. AICA loops protrusions at the bilateral internal auditory canals. BRAIN and EXTRA-AXIAL SPACES: The ventricles and sulci reflecting volume loss and there are scattered nonspecific T2 hyperintensities in the white matter most likely reflecting chronic small vessel disease. EXTRACRANIAL SOFT TISSUES: Visualized portions of the extracranial soft tissues are unremarkable. Bilateral cataract surgery. Elongated globes with probable staphylomas. Trace scattered paranasal sinus mucosal thickening. Mucus retention cysts in the bilateral maxillary sinuses. BONES: Visualized marrow signal is preserved. IMPRESSION: No retrocochlear abnormality to explain the patient?s symptoms. Electronically Signed By: Valerie lal [place] - [facility] 09/25/2024 12:28:47 Problems Name Problem SNOMED Code Status Onset Date Resolution Date Notes Provider Name and Address Organization Details Recorded Time Sensorine ural hearing loss 40707366 Active 2015 Sensorine ural hearing loss, unilatera l, right ear, with unrestric tianna hearing on the contralat eral side; Note: Date Diagnosed : 03/29/2016 11:14 AM (H90.41) Not Available [facility] 4 03:28:16 Mixed conductiv e and sensorine ural hearing loss of left ear [id number] 107 Active 2015 Mixed conductiv e and sensorine ural hearing loss, unilatera l, left ear, with unrestric tianna hearing on the contralat eral side; Note: Date Diagnosed : 03/29/2016 11:14 AM (H90.72) Not Available [facility] 4 03:28:16 Otosclero sis 14738325 Active 2015 Unspecifi ed otosclero sis, left ear; Note: Date Diagnosed : 03/29/2016 11:14 AM (H80.92) Not Available [facility] 4 03:28:16 Sensorine ural hearing loss of bilateral ears 534963773 Active 2023 ELIA ASENCIO MA, CCC-A [address],[place] [facility], [place], [address] , [facility] - [facility] 4 16:12:38 Benign paroxysma l positiona l vertigo 702305308 Active 2023 BERONICA SANTOS MD [address],[place] [address], [place], [address] , [facility] - [facility] 4 16:38:14 Unsteady when walking 86077383 Active 2023 BERONICA SANTOS MD [address],[place] [address], [place], [place], [address] , [facility] - [facility] 4 16:38:27 Problem Notes None recorded. Procedures Surgical History Date Name Laterality Status Provider Name and Address Organization Details Recorded Time 08/01/2024 Comp Audio with Tymps - 04403 & 66529 completed ELIA ASENCIO MA, [facility] [address] [address], [place], [address], [facility] - [facility] 08/01/2024 16:12:17 Imaging Results None recorded. Procedure Notes None recorded. Medical Equipment None Reported. Allergies Allergen ID Allergen Name Allergen Category Reaction Reaction Severity Criticality Documentation Date Start Date Code Code System Note Provider Name and Address Organization Details Recorded Time 115465 meperidin e hydrochlo ride medicatio n other Not available Not available 02/27/2024 01781 5 RxNorm React ion: unkno wn, unspe shadye d;; Not Available [facility] 01:24:51 Medications Name Sig Start Date Stop Date Status Note LastModified by Organization Details LastModified Time celecoxib 200 mg capsule active Not Available Not Available Not Available cyclobenz aprine 10 mg tablet TAKE 1 TABLET BY MOUTH THREE TIMES DAILY FOR 10 DAYS NEEDED FOR MUSCLE SPASM active Not Available Not Available No t Available fentanyl 50 mcg/hr transderm al patch APPLY 1 PATCH TOPICALL Y TO THE SKIN EVERY 72 HOURS active Not Available Not Available No t Available prednison e 10 mg tablet TAKE 2 TABLETS BY MOUTH DAILY 08/01 completed Not Available Not Available Not Available trazodone 50 mg tablet TAKE 1 AND 1/2 TABLETS BY MOUTH AT BEDTIME NEEDED DIRECTED active Not Available Not Available No t Available ofloxacin 0.3 % eye drops INSTILL 1 DROP TO LEFT EYE FOUR TIMES DAILY STARTING 3 DAYS AFTER SURGERY AND CONTINUI NG THE DAY AFTER 08/01 completed Not Available Not Available Not Available metoprolo l succinate ER 50 mg tablet,ex tended release 24 hr 2014 active Medicati on ID: [id number] D uration Value: 90 Brand Name: metoprol ol succinat e Send Method: E-Prescr ibed Sub s Allowed: subs OK Medic ationGen ericName : metoprol ol succinat e Not Available Not Available Not Available Nystop 100,000 unit/gram topical powder APPLY EXTERNAL LY TO THE AFFECTED AREA TWICE DAILY active Not Available Not Available No t Available potassium chloride ER 10 mEq tablet,ex tended release TAKE 1 TABLET BY MOUTH DAILY active Not Available Not Available No t Available amlodipin e 5 mg tablet TAKE 1 TABLET BY MOUTH DAILY active Not Available Not Available No t Available hydrocort isone 2.5 % topical cream with perineal applicato r APPLY TOPICALL Y TO THE AFFECTED AREA TWICE DAILY FOR 7 DAYS 08/01 completed Not Available Not Available Not Available prednisol one acetate 1 % eye drops,deven pension INSTILL 1 DROP TO LEFT EYE FOUR TIMES DAILY STARTING DAY AFTER SURGERY AND CONTINUI NG 08/01 completed Not Available Not Available Not Available tacrolimu s 0.1 % topical ointment APPLY TWICE DAILY TO THE AFFECTED AREA ON HANDS DURING WEEK OFF FROM BETAMETH ASONE 08/01 completed Not Available Not Available Not Available lansopraz ole 30 mg capsule,d elayed release TAKE 1 CAPSULE BY MOUTH TWICE DAILY BEFORE A MEAL active Not Available Not Available No t Available lidocaine 5 % topical patch APPLY 1 PATCH TOPICALL Y TO THE SKIN DAILY. LEAVE ON MOST PAINFUL AREA FOR UP TO 12 HOURS 08/01 completed Not Available Not Available Not Available betametha sone, augmented 0.05 % topical ointment APPLY TWICE DAILY TO RASH ON HANDS NEEDED FOR 2 WEEKS THEN OFF FOR 1 WEEK AVOID FACE AND BODY FOLDS 08/01 completed Not Available Not Available Not Available lisinopri l 20 mg-hydroc hlorothia zide 25 mg tablet TAKE 2 TABLET BY MOUTH EVERY DAY active Not Available Not Available No t Available monteluka st 10 mg tablet active Medicati on ID: [id number] D uration Value: 90 Brand Name: monteluk ast Send Method: E-Prescr ibed Sub s Allowed: subs OK Medic ationGen ericName : monteluk ast Not Available Not Available Not Available codeine 10 mg-guaife nesin 100 mg/5 mL oral liquid TAKE 10 ML BY MOUTH EVERY 6 HOURS NEEDED FOR COUGH 08/01 completed Not Available Not Available Not Available mupirocin 2 % topical ointment APPLY TOPICALL Y TO THE AFFECTED AREA TWICE DAILY FOR 10 DAYS 08/01 completed Not Available Not Available Not Available lorazepam 1 mg tablet 08/01 completed Medicati on ID: [id number] D uration Value: 30 Brand Name: lorazepa m Send Method: E-Prescr ibed Sub s Allowed: subs OK Medic ationGen ericName : lorazepa m Not Available Not Available Not Available ibuprofen 600 mg tablet TAKE 1 TABLET BY MOUTH TWICE DAILY WITH FOOD OR MILK NEEDED 08/01 completed Not Available Not Available Not Available fentanyl 25 mcg/hr transderm al patch APPLY 2 PATCHES TOPICALL Y TO THE SKIN EVERY 72 HOURS 08/01 completed Not Available Not Available Not Available albuterol sulfate HFA 90 mcg/actua tion aerosol inhaler Inhale 2 puff using inhaler every six hours as needed active Medicati on ID: [id number] B rand Name: albutero l sulfate Send Method: E-Prescr ibed Sub s Allowed: subs OK Medic ationGen ericName : albutero l sulfate Not Available Not Available Not Available ketoconaz ole 2 % topical cream APPLY TWICE DAILY TO RASH UNDER BREAST CREASE FOR 2 WEEKS REPEAT NEEDED 08/01 completed Not Available Not Available Not Available fentanyl 75 mcg/hr transderm al patch 08/01 completed Medicati on ID: [id number] D uration Value: 30 Brand Name: fentanyl Send Method: E-Prescr ibed Sub s Allowed: subs OK Speci al Instruct ion: APPLY 1 PATCH TO THE SKIN EVERY 48 HOURS Me dication GenericN shiraz: fentanyl Not Available Not Available Not Available amoxicill in 875 mg-potass ium clavulana te 125 mg tablet TAKE 1 TABLET BY MOUTH TWICE DAILY FOR 10 DAYS 08/01 completed Not Available Not Available Not Available oxycodone 5 mg tablet TAKE 1 TABLET BY MOUTH EVERY 6 HOURS FOR 7 DAYS active Not Available Not Available No t Available duloxetin e 60 mg capsule,d elayed release TAKE 1 CAPSULE BY MOUTH EVERY DAY active Not Available Not Available No t Available pregabali n 75 mg capsule TAKE 1 CAPSULE BY MOUTH TWICE DAILY active Not Available Not Available No t Available Symbicort 160 mcg-4.5 mcg/actua tion HFA aerosol inhaler active Medicati on ID: [id number] D uration Value: 90 Brand Name: Symbicor t Send Method: E-Prescr ibed Sub s Allowed: subs OK Medic ationGen ericName : Symbicor t Not Available Not Available Not Available Calcium 600 + D(3) 600 mg-10 mcg (400 unit) tablet active Medicati on ID: [id number] B rand Name: Calcium 600 + D(3) Sen d Method: E-Prescr ibed Sub s Allowed: subs OK Medic ationGen ericName : Calcium 600 + D(3) Not Available Not Available Not Available Daliresp 500 mcg tablet 2013 active Medicati on ID: [id number] D uration Value: 90 Brand Name: Daliresp Send Method: E-Prescr ibed Sub s Allowed: subs OK Speci al Instruct ion: TAKE 1 TABLET BY MOUTH ONCE A DAY FOR 90 DAYS. Me dication GenericN shiraz: Daliresp Not Available Not Available Not Available Spiriva Respimat 2.5 mcg/actua tion solution for inhalatio n 2014 active Medicati on ID: [id number] D uration Value: 90 Brand Name: Spiriva Respimat Send Method: E-Prescr ibed Sub s Allowed: subs OK Medic ationGen ericName : Spiriva Respimat Not Available Not Available Not Available Fasenra 30 mg/mL subcutane ous syringe active Not Available Not Available Not Available Trelegy Ellipta 200 mcg-62.5 mcg-25 mcg powder for inhalatio n INHALE 1 PUFF BY MOUTH DAILY active Not Available Not Available No t Available Vitals Date Recorded Body height Body weight Provider Name and Address Organization Details Last Updated DateTime 08/01/2024 154.94 cm 83220.63 g Domi Gaines [place] - [facility] 08/01/2024 16:22:34 Social History None recorded. Functional Status None recorded. Mental Status None recorded. Family History Nothing Reported. Medical History Condition Response Hypertension Y Asthma Y Gynecological HistoryNo gynecological history recorded. Obstetrics History GPAL:G 0 P 0 0 0 0 Past Encounters Encounter ID Performer Location Encounter Start Date Encounter Closed Date Diagnosis/Indication Diagnosis SNOMED-CT Code Diagnosis ICD10 Code Diagnosis Note [id number] BERONICA SANTOS MD [facility] [address] [address] 08/01/2024 14:53:13 08/01/2024 16:46:49 Benign paroxysmal positional vertigo [id number] H81.11 Patient with episodic positional ly induced vertigo. [place] was positive for vertigo and rotary nystagmus with the head to the right. We discussed that the patient s pattern of symptoms and physical exam findings are most consistent with benign paroxysmal positional vertigo (BPPV). The pathophysi ology of BPPV was discussed in detail. Patient was provided with a referral to AT for Freeman maneuvers and vestibular therapy. We discussed the fact that treatment of BPPV can require anywhere from 1 to 6 treatments for successful results, and has approximat yonathan 95% success rate in eliminatin g symptoms. BPPV can recur and if the classic positional ly induced symptoms do recur, patient can call for further referrals. Unsteady when walking 22 093498 R26.89 The BPPV is unlikely to be related to her unsteadine ss while ambulatory . This is much more likely to be related to her chronic lower extremity and lower back issues. Recommend continuing working with her orthopedis t and neurologis t in this regard. Sensorineu ral hearing loss of bilateral ears [id number] H90.3 Audiologic al evaluation results:Ri ght ear:Normal hearing thru 1000Hz sloping to a mild to moderately severe SNHL with excellent word recognitio n.Left ear:Modera te to severe SNHL with excellent word recognitio n. Tympanomet ry:Right Ear:Type AdLeft Ear:Type AdPatient' s audiogram is demonstrat ing an asymmetric sensorineu ral hearing loss affecting the left ear greater than right. This is enough of an asymmetry to warrant retrocochl ear workup. Recommend MRI scan of the brain and internal auditory canals with gadolinium . We will arrange this for the patient. If the scan is negative I will let the patient know via portal massage. If there are any significan t abnormalit ies, we can arrange telehealth visit to discuss the results. [id number] ELIA ASENCIO MA, CCC-A [facility] [address] [place] [address] 08/01/2024 16:11:06 08/05/2024 09:08:43 Sensorineural hearing loss of bilateral ears [id number] H90.3 Audiologic al evaluation results:Ri ght ear:Normal hearing thru 1000Hz sloping to a mild to moderately severe SNHL with excellent word recognitio n.Left ear:Modera te to severe SNHL with excellent word recognitio n. Tympanomet ry:Right Ear:Type AdLeft Ear:Type Ad Health Concerns Section Related Observation LastModified by Organization Detai ls LastModified Time None Recorded Concern Status LastModified by Organization Details LastModified Time None Recorded Advance Directives Directive None Recorded Payers Insurance Date Sequence Insurance Name Policy Number Policy Magaña Covered Member ID Magaña Member ID Guarantor Name 08/01/2024 1 [place] [employer] Letty Wood [id number] Letty Wood 08/01/2024 3 [place] Letty Wood [id number] Letty Wood 08/01/2024 2 [place] [id number] Letty Wood [id number] Letty Wood Notes Date Note Type Note Provider Name and Address Organization Details Recorded Time 08/01/2024 text/html 79-year-old fema francis who I evaluated back in 2016 for hearing loss. She had a mild conductive hearing loss on the left ear of unclear etiology. Amplification was recommended at that that time due to the mild nature of the conductive hearing loss. Unfortunately her old audiogram was not available for my review today. Patient currently has hearing aids that were dispensed back in [address] [facility] audiology. The devices were last evaluated and serviced back in 2018. She notes that she is not hearing as well out of the left ear as she did in the past.Patient also noticing episodic vertigo which is primarily brought on by laying flat and rolling over in bed. Vertigo will last about 15 to 30 seconds, then subside.Patient has also been having issues with unsteadiness on her feet. She has chronic back and lower extremity issues resulting in reduced strength and lower extremity coordination. She has been working with orthopedics and neurology in this regard. BERONICA SANTOS MD [address] [place] [address], [place], [address], [facility] - [facility] 08/01/2024 17:04:30 OBGyn Episode No OBEpisode recorded.
--- OUTSIDE RECORDS SUMMARY | 2025-04-30 13:56 | XMS_ITS | Clinical Summary ---
Author Organization [facility] Address [address] [place] [address] Care Team Providers Care Community Worker Name Role Phone Jorge Driscoll MD Primary Care Provider [phone] Surgical History Surgery Date Site/Laterality Comments HYSTERECTOMY [...] 08/18/2017 DX:Osteoarthriti s Thoracic compression fractur e ([facility] V24, [facility] V28) 12/26/2017 DX:Thoracic compression frac ture ([facility]); COMMENT: T2 & T11 History of substance abuse ( [facility] V24, [facility] V28) 12/26/2017 DX:History of substance abus e ([facility]); COMMENT: 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 Pleural effusion 07/02/2017 DX:Pleural effu liliana 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:Gold's esophagus COPD (chronic obstructive pu lmonary disease) ([facility] V24, [facility] V28) 11/02/2017 DX:COPD (chronic o bstructive pulmonary disease) ([facility]) Obstructive sleep apnea syndrome 07/02/2017 DX:Obstructive sleep [...] Recently Relevant to Health Maintenance Results * [facility] DEXA AXIAL SKELETON (08/31/2022 7:38 AM EST) Anatomical Region Laterality Modality Mammography 08/30/2022 11:0 6 AM EST Narrative 08/31/2022 7:38 AM EST [facility] Diagnostic Imaging Department [address] [place] [address] Patient: LETTY WOOD Crow Ferguson./Age/Sex: 1945 - 77 - F Unit#: [id number] [facility]Ordering Site: [facility] Ordering Physician: JORGE DRISCOLL MD [facility] Dexa Axial Skeleton - 08/30/22 - 2761 HISTORY: The patient is a 77-year-old postmenopausal [...] probability of hip fracture of 8.8%. Code 28117 Dictating Physician: DEANA HENSLEY MD Electronically Signed by: DEANA HENSLEY MD Dic Date/Time: 08/31/22735 Sign date/Time: 08/31/22737 Procedure Note Deana Hensley MD - 11/17/2023 [facility] Diagnostic Imaging Department [address] [place] [address] Patient: CHERRIELETTY Maria D.O.B./Age/Sex: 1945 - 77 - F Unit#: [id number] Location/Status: [facility] Ordering Physician: JORGE DRISCOLL MD [facility] Dexa Axial Skeleton - 08/30/22 3952 HISTORY: The patient is a 77-year-old postmenopausal [...] density of the femurs bilaterally is 0.847 gm/nv5lcqpi is 84% of that of young normals [...] probability of hip fracture of 8.8%. Code 92928 Dictating Physician: DEANA HENSLEY MD Electronically Signed by: DEANA HENSLEY MD Dic Date/Time: 08/31/22 0736 Sign date/Time: 08/31/22 0738 Jorge Driscoll MD IMG BI PROCEDURES Final Result from Last 3 Months or Most Recently Relevant to Health Maintenance Care Teams Community Worker Relationship Specialty Start Date End Date Jorge Driscoll MD PCP - General 10/16/1991
--- OUTSIDE RECORDS SUMMARY | 2025-04-30 13:56 | XMS_ITS | Patient Health Record ---
[facility] Organization [facility] Address [address] [facility] [place] [address] Care Team Providers Care Slots Manager Name Role Phone Arnulfo Barry MD Primary Care Provider Unavailab Flores Astudillo Unavailable [phone] Allergies Allergen (clinical drug ingredient) Drug/Non Drug Allergy documented on EMR Reaction Allergy Type Onset Date Status meperidine Demerol dry heaves Drug Allergy Activ e Reason For Referral No Information Medications Medication SIG (Take, Route, Frequency, Duration) Notes Start Date End Date Status AFO-fixed fixed 1 09/03/2014 Not -Taking Cymbalta 60 MG 1 capsule Orally Onc e a day; Duration: 30 day(s) Active Xyzal 5 MG 0.5 tablet in the evening Orally Once a day; Duration: 30 day(s) Not-Taking Symbicort 80-4.5 MCG/ACT 2 puffs Inhalat ion Twice a day Not-Taking Lansoprazole Not-Manuelito ing Azithromycin Not-Manuelito ing Dupixent 300 MG/2ML Subcutaneous; Durati on: 28 Days Active oxyCODONE HCl 3/325mg Not-Taking Fasenra 30 MG/ML Subcutaneous; Durati on: 28 Not-Taking LORazepam Active Keflex 500 MG 1 capsule Orally mitchel ry 12 hrs; Duration: 10 day(s) 06/09/2014 Not-Taking Trelegy Ellipta 200-62.5-25 MCG/ACT Inhalation; Duration: 30 Active Lyrica 75mg Not-Taki ng [place] innersoles . . . Dx; Duration: . 06/11/2018 Active Keflex 500 MG 1 capsule Orally Twi ce a day; Duration: 10 day(s) 07/07/2014 Not-Taking oxyCODONE HCl PRN Active Keflex 500 MG 1 capsule Orally mitchel ry 12 hrs; Duration: 10 day(s) 07/14/2014 Not-Taking fentaNYL 50 MCG/HR 1 patch to skin Transdermal Active Daliresp Not-Taking traZODone HCl 50 MG 1 tablet at bedtime as needed Orally Once a day Active Slow Fe Not-Taking GaviLyte-G Not-Takin g Calcium 750mg Active LORazepam 0.5 MG 1 tablet at bedtime as needed Orally Once a day Not-Taking Prevacid 30mg Active Furosemide 20 MG 1 tablet Orally Once a day; Duration: 30 day(s) Not-Taking Albuterol 90mcg Acti ve Wellbutrin 75mg Not- Taking Amlodipine & Diet Manage Prod 5mg Active Lisinopril-hydroCHLOROthi azide 20-25 MG 2 tablets Orally Once a day; Duration: 30 day(s) Not-Taking Montelukast Sodium A ctive Flovent Diskus 220mcg Not-Taking Klor-Con 10 Active Potassium Acetate No t-Taking DULoxetine HCl Activ e Actonel 150mg Not-Ta stephanie Metoprolol Succinate ER Active Virtussin A/C Not-Ta stephanie Toprol XL 50 MG Orally Acti ve Vitamin D Active Immunizations Vaccine Route Administration Date Status Comme nts COVID-19 Pfizer BioNTech Vaccine Unknown 09/07/2021 Administered First Dose: 11/24/20 Second Dose:12/14/2020 Influenza Unknown 08/13/2018 Administered Influenza Unknown 04/07/2025 Refused Social History Tobacco Use: Social History Observation Description Date Details (start date - stop date) Never Smoker NA - NA Alcohol Screen Question Answer Notes Did you have a drink containing alcohol in the p ast year? No Points 0 Interpretation Negative Tobacco use other than smoking: Question Answer Notes Are you an other tobacco user? No Tobacco Control (Standard) Question Answer Notes Tobacco use: Nonsmoker Additional Findings: Tobacco non-user Ex-cigaret te smoker Problems Problem Type SNOMED Code ICD Code Onset Dates Problem Status W/U Status Risk Notes Problem Localized, primary osteoarthritis of the ankle and/or foot (586801277) Primary osteoarthritis , right ankle and foot (M19.071) Active confirmed Problem Localized, primary osteoarthritis of the ankle and/or foot (176835186) Primary osteoarthritis , left ankle and foot (M19.072) Active confirmed Problem Acquired hallux valgus (54957560) Hallux valgus (acquired), right foot (M20.11) Active confirmed Problem Acquired hammer toe of right foot (9831805083564784) Other hammer toe(s) (acquired), right foot (M20.41) Active confirmed Problem Acquired hammer toe of left foot (6132139840868176) Other hammer toe(s) (acquired), left foot (M20.42) Active confirmed Problem Neuropathy (363920574) Neuropathy (G62.9) Active confirmed Problem 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) Active confirmed Problem Localized, primary osteoarthritis of the ankle and/or foot (603515295) Arthritis of joint of lesser toe, right (M19.071) Active confirmed Vital Signs Blood pressure diastolic 70 mm Hg 04/07/2025 Height 5 ft 1 in in 04/07/2025 Blood pressure systolic 125 mm Hg 04/07/2025 Weight 184 lbs 04/07/2025 BMI 34.76 kg/m2 04/07/2025 Procedures Procedure Date Ordered Date Performed Result Body Sit e 32735-FIUCILB NAIL, 6 OR MORE 05/16/2024 N/A 74523-Rukfdcrz Plate 05/16/2024 N/A 89943-NIARNVX NAIL, 6 OR MORE 07/25/2024 N/A 82552-FUHBMQT NAIL, 6 OR MORE 09/26/2024 N/A 62017-CRXRDWJ NAIL, 6 OR MORE 01/30/2025 N/A 03837-DYGOCNZ NAIL, 6 OR MORE 04/07/2025 N/A 54814-Ncydtelo Plate 04/07/2025 N/A Encounters Encounter Location Date Provider Diagnosis [facility] [place] [address] [place] [address] 05/16/2024 Flores Black Tinea unguium B35.1 ; Pain in right toe(s) M79.674 ; Pain in left toe(s) M79.675 ; Ingrown nail L60.0 ; Pain in right foot M79.671 ; Pain in right ankle and joints of right foot M25.571 ; Bursitis of right foot M77.51 and Acquired hallux interphalangeus of right foot M20.[address] [address] 07/25/2024 Flores Black Tinea unguium B35.1 ; Pain in right toe(s) M79.674 and Pain in left toe(s) M79.[address] [address] 09/26/2024 Flores Black Tinea unguium B35.1 ; Pain in right toe(s) M79.674 and Pain in left toe(s) M79.[address] [address] 01/30/2025 Flores Black Tinea unguium B35.1 ; Pain in right toe(s) M79.674 and Pain in left toe(s) M79.[address] [address] 04/07/2025 Flores Black Tinea unguium B35.1 ; Ingrown nail L60.0 ; Pain in right toe(s) M79.674 and Pain in left toe(s) M79.[address] [address] 11/28/2024 Flores Black Assessments Encounter Date Diagnosis (ICD Code) Assessment Notes Treatment Notes Treatment Clinical Notes Section Notes 05/16/2024 Tinea unguium (ICD-10 - B35.1) 07/25/2024 Tinea unguium (ICD-10 - B35.1) 07/25/2024 Pain in right toe(s) (ICD-10 - M79.674) 09/26/2024 Tinea unguium (ICD-10 - B35.1) 09/26/2024 Pain in right toe(s) (ICD-10 - M79.674) 01/30/2025 Tinea unguium (ICD-10 - B35.1) 04/07/2025 Tinea unguium (ICD-10 - B35.1) 04/07/2025 Ingrown nail (ICD-10 - L60.0) 01/30/2025 Pain in right toe(s) (ICD-10 - M79.674) 04/07/2025 Pain in right toe(s) (ICD-10 - M79.674) 09/26/2024 Pain in left toe(s) (ICD-10 - M79.675) 07/25/2024 Pain in left toe(s) (ICD-10 - M79.675) 05/16/2024 Pain in right toe(s) (ICD-10 - M79.674) 05/16/2024 Pain in left toe(s) (ICD-10 - M79.675) 01/30/2025 Pain in left toe(s) (ICD-10 - M79.675) 04/07/2025 Pain in left toe(s) (ICD-10 - M79.675) 05/16/2024 Ingrown nail (ICD-10 - L60.0) 05/16/2024 Pain in right foot (ICD-10 - M79.671) 05/16/2024 Pain in right ankle and joints of right foot (ICD-10 - M25.571) 05/16/2024 Bursitis of right foot (ICD-10 - M77.51) 05/16/2024 Acquired hallux interphalangeus of right foot (ICD-10 - M20.11) Plan Of Treatment Pending Test Test Name Order Date X ray : Foot, right 2V 07/04/2011 X ray : Foot, right 2V 08/28/2023 X ray : Foot, left 3V 04/03/2013 X ray : Foot, right 3V 04/03/2013 57863-WKVIIJC NAIL, 6 OR MORE 08/29/2013 77670-FSEIQNN NAIL, 6 OR MORE 06/12/2013 71685-XTVCJFZ NAIL, 6 OR MORE 11/07/2013 50641-WSRMGDF NAIL, 6 OR MORE 01/20/2014 72953-THOYJQM NAIL, 6 OR MORE 07/28/2011 16347-VVNBSPJ NAIL, 6 OR MORE 08/22/2011 08288-BOYNKHE NAIL, 6 OR MORE 10/24/2011 15585-CXCPTPJ NAIL, 6 OR MORE 12/08/2011 17386-BACBMRX NAIL, 6 OR MORE 01/23/2012 71475-ZDLNPTJ NAIL, 6 OR MORE 04/09/2012 86032-OHSMHMY NAIL, 6 OR MORE 06/20/2012 53960-YXESKPH NAIL, 6 OR MORE 09/03/2012 78289-DAJPLHS NAIL, 6 OR MORE 11/12/2012 80625-LLMTYKY NAIL, 6 OR MORE 01/21/2013 31320-KHTKPHR NAIL, 6 OR MORE 04/03/2013 56369-IVOLFJS NAIL, 6 OR MORE 04/07/2014 93693-OJWDHKK NAIL, 6 OR MORE 06/23/2014 62631-GWLYDTJ NAIL, 6 OR MORE 05/01/2014 37657-CDURQAP NAIL, 6 OR MORE 09/03/2014 56889-UCAOUQU NAIL, 6 OR MORE 11/10/2014 40851-VPOENSI NAIL, 6 OR MORE 01/19/2015 73775-OEYMLGK NAIL, 6 OR MORE 02/19/2015 80831-PJYYFCU NAIL, 6 OR MORE 03/19/2015 85871-GSCHJTD NAIL, 6 OR MORE 05/26/2015 43628-NOWIOZD NAIL, 6 OR MORE 08/04/2015 37906-AZSQRTL NAIL, 6 OR MORE 10/07/2015 95451-SWCYTVO NAIL, 6 OR MORE 02/10/2016 29315-PCPIIRE NAIL, 6 OR MORE 04/13/2016 50324-YXMNTFT NAIL, 6 OR MORE 06/23/2016 08507-ZVOIFRJ NAIL, 6 OR MORE 08/25/2016 77033-NVFMYSK NAIL, 6 OR MORE 11/03/2016 37130-KZWRYZL NAIL, 6 OR MORE 01/05/2017 11562-IOLUAPM NAIL, 6 OR MORE 08/28/2023 44066-UVRYCLK NAIL, 6 OR MORE 04/24/2023 47335-EGXTNIL NAIL, 6 OR MORE 11/06/2023 86279-TEKATJX NAIL, 6 OR MORE 01/08/2024 81636-FGEMSMP NAIL, 6 OR MORE 05/16/2024 59718-TSDRMZL NAIL, 6 OR MORE 07/25/2024 83403-EUNUAYH NAIL, 6 OR MORE 09/26/2024 17608-UGIBSIC NAIL, 6 OR MORE 01/30/2025 94681-HBQMIXX NAIL, 6 OR MORE 03/14/2024 41208-EWTUNGZ NAIL, 6 OR MORE 04/07/2025 87387-SORVWQS NAIL, 6 OR MORE 05/06/2021 06449-BTKNIVC NAIL, 6 OR MORE 07/08/2021 46250-EMMNKTD NAIL, 6 OR MORE 09/13/2021 82727-VHUFOLV NAIL, 6 OR MORE 11/15/2021 05165-SVGYZBV NAIL, 6 OR MORE 05/30/2022 83164-LUZLIYT NAIL, 6 OR MORE 08/01/2022 64311-DZYXZLA NAIL, 6 OR MORE 10/03/2022 71242-VNELGAZ NAIL, 6 OR MORE 12/12/2022 24887-KEWGSQA NAIL, 6 OR MORE 02/13/2023 05672-QFAZTEK NAIL, 6 OR MORE 01/24/2022 91279-DKOCCWG NAIL, 6 OR MORE 03/28/2022 84360-AQWUNTB NAIL, 6 OR MORE 03/09/2017 02457-LKGWLOS NAIL, 6 OR MORE 05/11/2017 58362-VTBINUC NAIL, 6 OR MORE 07/13/2017 00361-XKBBYWS NAIL, 6 OR MORE 09/14/2017 83207-ETUTHJC NAIL, 6 OR MORE 11/20/2017 68602-OLMSQOG NAIL, 6 OR MORE 02/05/2018 58154-AHKGPOA NAIL, 6 OR MORE 04/09/2018 15526-XFIIYEQ NAIL, 6 OR MORE 06/11/2018 94261-WRMGOEN NAIL, 6 OR MORE 08/13/2018 76884-OHZBBOZ NAIL, 6 OR MORE 10/18/2018 79904-EFOKEOT NAIL, 6 OR MORE 12/31/2018 19202-DCXFLOX NAIL, 6 OR MORE 02/21/2019 19786-HXWDGMR NAIL, 6 OR MORE 07/04/2019 42352-IPLHHUF NAIL, 6 OR MORE 09/05/2019 48562-CSDSPLC NAIL, 6 OR MORE 11/07/2019 58442-AZCQSFN NAIL, 6 OR MORE 03/23/2020 47338-LGCASKP NAIL, 6 OR MORE 04/29/2019 86026-IPHEUDJ NAIL, 6 OR MORE 06/01/2020 85797-NGKEEAL NAIL, 6 OR MORE 08/03/2020 84098-VZEGYIH NAIL, 6 OR MORE 10/19/2020 03877-CRCOCDG NAIL, 6 OR MORE 12/31/2020 51014-AQXDPRX NAIL, OR MORE 03/04/2021 73675-Hbbycldd Plate 03/04/2021 78999-Vbusgrli Plate 08/03/2020 25996-Qjndzurw Plate 08/13/2018 95847-Kgdnjidf Plate 03/23/2020 40124-Jokceioi Plate 02/21/2019 34860-Wfnnfers Plate 02/05/2018 33120-Kpiccahh Plate 05/11/2017 16183-Nidkceii Plate 05/30/2022 80482-Lhqnepcq Plate 05/06/2021 73059-Blnlrcbs Plate 02/13/2023 07931-Prravkif Plate 01/24/2022 41553-Doqulvnv Plate 09/13/2021 43189-Jimgflay Plate 07/08/2021 07469-Rajeyaul Plate 05/16/2024 08097-Sahkazno Plate 04/07/2025 38087-Cjhnrzdk Plate 03/14/2024 60747-Saqqrase Plate 08/28/2023 66658-Euepcoyg Plate 01/05/2017 20224-Fsffuzsi Plate 08/25/2016 95077-Xtwwhvci Plate 06/23/2016 70247-Lkvdtpqz Plate 02/10/2016 67481-Rnwvnaic Plate 10/07/2015 95153-Moiqreqh Plate 05/26/2015 80383-Tdlvfgbj Plate 08/04/2015 17925-Iubibsqt Plate 03/19/2015 28849-Jngxkwon Plate 02/19/2015 44113-Ueegnqrp Plate 01/19/2015 71474-Jcytlrmg Plate 11/10/2014 35598-Mpcyuuie Plate 05/01/2014 84297-Utfoicfm Plate 04/07/2014 89585-Revtxyim Plate 04/03/2013 69334-Ykshehoa Plate 01/21/2013 60622-Foowcwmj Plate 11/12/2012 17382-Icscjxpz Plate 01/20/2014 81718-Ifteobqn Plate 11/07/2013 19377-Tdnfylvi Plate 08/29/2013 98815-Yklyhuiw Plate Each Additional 58423-Vwcentph Plate Each Additional 21663-Ejcsajfd Plate Each Additional 05/2013 61028-Eggctdmr Plate Each Additional 58721-Fujkcojv Plate Each Additional 05/2020 22417-Tjaoluup Plate Each Additional 88679-SFH 06/09/2014 08111- Debride <25 sq cm 10/19/2020 67018- Debride <25 sq cm 09/03/2014 85015- Debride <25 sq cm 11/06/2023 70286-CZPCXRC SKIN/TISSUE 07/24/2014 45280-LUDGCEN SKIN/TISSUE 06/23/2014 52542-KVFILQC SKIN/TISSUE 07/07/2014 53040 I&D ABSCESS- SIMPLE,SINGLE 014 66658 I&D ABSCESS- SIMPLE,SINGLE 014 78571 I&D ABSCESS- SIMPLE,SINGLE 014 43848 I&D ABSCESS- SIMPLE,SINGLE 014 39886 I&D ABSCESS- SIMPLE,SINGLE 013 18075- I&D ABSCESS-COMPLICATED,MULTI 04/201451, J0702- INJECT TENDON ORIGIN/INSER T 01/20/201483135, J0702- INJECT or DRAIN, JOINT/BUR SA 01/20/201443118, T7142-ASXNM/INJECT, JOINT/BURSA 0 04/09/201215593, T4268-RNCGF/INJECT, JOINT/BURSA 0 12/08/201121232, F3676-PYGGY/INJECT, JOINT/BURSA 0 10/24/201172663, N1785-DBGRQ/INJECT, JOINT/BURSA 1 10/28/202228150, D4914-SSBNK/INJECT, JOINT/BURSA 0 11/15/202129850, O9749-OTBDG/INJECT, JOINT/BURSA 0 02/13/202397140, B4107-GBGBC/INJECT, JOINT/BURSA 0 05/11/201738293, F9331-STQTJ/INJECT, JOINT/BURSA 0 06/12/201913213,V9783-VJX TENDON SHEATH/LIGAMENT 0 06/12/2013 Next Appt Details Provider Name:Flores Lowry , 06/12/2025 11:15:00 AM, [address] [place] [address], [phone], Provider Name:Flores Lowry , 08/14/2025 10:15:00 AM, [address] [place], [phone], Insurance Providers Payer Name Payer Address Payer Phone Subscriber Number Group Number Insured Name Patient Relationship to Insured Coverage Start Date Coverage End Date Medicare National [facility] [address] [place] [address] [id number] Letty Wood Self - patient is the insured 5 [employer] [address] [place] [address] [id number] Letty Wood Self - patient is the insured Medical (General) History Medical History History ICD Code reflux poor circulation hypertension broken bones back, hip, knee pain asthma Surgical History Surgery Date(Month/Year) ankle surgery 1985 back surgery 1977 carpal tunnel release 2004 hysterectomy 1972 left knee arthroscopy 2004 right knee arthroscopy 2005 shoulder surgery foot surgery 2010 cataract surgery rotator cuff tear repair oral surgery 2006 colonoscopy 02/28/2017 endoscopy 02/28/2017 total knee replacement 08/09/24
--- OUTSIDE RECORDS SUMMARY | 2025-04-30 13:56 | XMS_ITS | Patient Health Record ---
Author Organization [facility] Address [address] [place] [phone] Care Team Providers Care Hand Outside Cutter Name Role Phone Tej David Unavailable [phone] Reason For Referral No Information Plan Of Treatment No Information
== END ==
LOC: HO.CARD 13:05
PROVIDERS: PCP Internal Medicine; Visit Provider Hospitalist
DX: I27.20 Pulmonary hypertension, unspecified (principal)
CPT/HCPCS: 93306

== ENCOUNTER → 2025-04-30 13:08 | Outpatient (BNV) | payer MEDICARE, MEDICAID, SELFPAY | PROVIDERS: PCP Internal Medicine; Visit Provider Internal Medicine | DX: I27.20 Pulmonary hypertension, unspecified (principal) | CPT/HCPCS: 93306 ==

== ENCOUNTER 2025-08-15 10:44 | Outpatient (AMB) | payer MEDICARE, MEDICAID, SELFPAY ==
--- OUTSIDE RECORDS SUMMARY | 2024-11-28 07:30 | XMS_ITS ---
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 Plant Operator Name Role Phone Arnulfo Barry MD Primary Care Provider Unavailab Flores Astudillo Unavailable [phone] Encounters Encounter Location Date Provider Diagnosis [address] [id number] 11/28/2024 Flores Alen Plan Of Treatment Next Appt Details Provider Name:Flores Maria Alen , 08/28/2025 02:15:00 PM, [address] [place] [address], [phone], Provider Name:Flores Maria Alen , 10/30/2025 09:30:00 AM, [address] [place] [address], [phone], Progress Notes * CHERRIESaharaLetty ADOB:[birth year] (80 yo F)Acc No.[id number]:11/28/2024 Progress Note Patient: Letty ZEPEDA Provider: Miguel Lowry DPM :1945 A ge:79 Y S ex:Female Date:11/28/2024 Address:[address] [place] [address] Wilfred[place] [id number] Pcp:Arnulfo Barry MD Subjective: * Chief Complaints: * * Medical History: Objective: * Vitals: Assessment: Plan: * Treatment: * Images: * The named appointment provid er may or may not be the originator of this progress note, and it is not deemed complete until electronically signed by the appointment provider. Sign off status: Pending * Provider: Miguel Lowry DPM Date: 0 11/28/2024 Generated for Duran cunha/Ila/Farideh on: 12:12 PM EDT
--- OUTSIDE RECORDS SUMMARY | 2025-04-15 10:00 | XMS_ITS ---
Author Organization [facility] Address [address] [place], [place] [id number] Care Team Providers Care Instrument Calibrator Name Role Phone JORGE DRISCOLL Primary Care Provider [phone] ALLERGIES Allergen (clinical drug ingredient) Drug/Non Drug Allergy documented on EMR Reaction Allergy Type Onset Date Status PRESERVATIVE FREE (uncoded) Demerol Allergy 07/12/2009 Active meperidine Demerol Unknown Drug Allergy Active Gabapentin Enacarbil ER EDEMA Drug Allergy Active meperidine Meperidine HCl Demerol Drug Allergy 07/12/2009 Active REASON FOR VISIT 1 yr follow up (AWV w/nursing 1st) SOCIAL HISTORY Tobacco Use: Social History Observation Description Date Details (start date - stop date) Former Smoker NA - 10/16/2001 Sex Assigned At : Social History Observation Description Sex Assigned At Unknown Smoking Question Answer Notes Are you a: former smoker When did you stop Smoking ? 10/16/2001 How long has it been since you last smoked? > 10 years Alcohol Screen Question Answer Notes Did you have a drink containing alcohol in the p ast year? No Points 0 Interpretation Negative Section Notes: quit smoking 2001 VITAL SIGNS Height 58.25 in 04/15/2025 Weight 185.4 lbs 04/15/2025 Blood pressure systolic 154 mm Hg 04/15/20 25 Blood pressure diastolic 92 mm Hg 025 BMI 38.41 kg/m2 04/15/2025 Encounters Encounter Location Date Provider Diagnosis [facility] [address] [place] [address] 04/15/2025 JOHN BEDFORD Medicare annual wellness visit, subsequent Z00.00 ASSESSMENTS Encounter Date Diagnosis Assessment Notes Treatment Notes Treatment Clinical Notes Section Notes 04/15/2025 Medicare annual wellness visit, subsequent (ICD-10 - Z00.00) AWV form reviewed with pt PLAN OF TREATMENT Treatment Notes Assessment Notes Medicare annual wellness visit, subseque nt AWV form reviewed with pt Next Appt Details Follow Up: prn, Reason: Provider Name:JORGE DRISCOLL , 08/19/2025 11:00:00 AM, [address] [place] [address], [phone], Provider Name:JORGE DRISCOLL , 10/29/2025 11:15:00 AM, [address] [place] [address], [phone], History and Physical Notes * HPI (History of Present Illness) Category Sub-Category Detail Notes Category Not es Depression Screening PHQ-2 (2015 Edition) Little interest or pleasure in doing things?: Not at all Feeling down, depressed, or hopeless?: N ot at all Total Score: 0
--- OUTSIDE RECORDS SUMMARY | 2025-04-23 02:25 | XMS_ITS ---
Author Organization [facility] Address [address] [place], [place] [id number] Care Team Providers Care Sheet Metal Shop Foreman Name Role Phone JORGE DRISCOLL Primary Care Provider REASON FOR VISIT labs Encounters Encounter Location Date Provider Diagnosis [address] [place] [address] 04/23/2025 JORGE DRISCOLL PLAN OF TREATMENT Next Appt Details Provider Name:JORGE DRISCOLL , 08/19/2025 11:00:00 AM, [address] [place] [address], [phone], Provider Name:JORGE DRISCOLL , 10/29/2025 11:15:00 AM, [address] [place] [address], [phone],
--- OUTSIDE RECORDS SUMMARY | 2025-04-23 07:38 | XMS_ITS ---
Author Organization [facility] Address [address] [place], [place] [id number] Care Team Providers Care Senior Sales Consultant Name Role Phone JORGE DRISCOLL Primary Care Provider [phone] REASON FOR VISIT Late Appointment Arrival Encounters Encounter Location Date Provider Diagnosis [address] [place] [address] 04/23/2025 JORGE DRISCOLL PLAN OF TREATMENT Next Appt Details Provider Name:JORGE DRISCOLL , 08/19/2025 11:00:00 AM, [address] [place] [address], [phone], Provider Name:JORGE DRISCOLL , 10/29/2025 11:15:00 AM, [address] [place] [address], [phone],
--- OUTSIDE RECORDS SUMMARY | 2025-04-23 07:45 | XMS_ITS ---
Author Organization [facility] Address [address] [place], [place] [id number] Care Team Providers Care Press Tender Short Goods Name Role Phone JORGE DRISCOLL Primary Care Provider [phone] ALLERGIES Allergen (clinical drug ingredient) Drug/Non Drug Allergy documented on EMR Reaction Allergy Type Onset Date Status PRESERVATIVE FREE (uncoded) Demerol Allergy 07/12/2009 Active meperidine Demerol Unknown Drug Allergy Active Gabapentin Enacarbil ER EDEMA Drug Allergy Active meperidine Meperidine HCl Demerol Drug Allergy 07/12/2009 Active REASON FOR VISIT 1w bp check MEDICATIONS Medication SIG (Take, Route, Frequency, Duration) Notes Start Date End Date Status Toprol XL 50 MG 1 tab(s) orally once a day Active Losartan Potassium-HCTZ 100-25 MG 1 tablet Orally Once a day for 90 days 12/30/2024 Active Singulair 10 MG 1 tab(s) orally once a day (in the evening) Active Daliresp 500 MCG 1 tab(s) orally once a day on hold until Pulm 04/24/25 Active amLODIPine Besylate 5 MG 1 tablet Orally Once a day Active Dupixent 300 MG/2ML as directed Subcutaneous every 14 days Active Albuterol Sulfate HFA 108 (90 Base) MCG/ACT 2 puff(s) inhaled qid prn Active Pregabalin 75 MG 1 capsule Orally 2 times daily 09/24/2024 Active Trelegy Ellipta 200-62.5-25 MCG/ACT 1 puff Inhalation Once a day Active oxyCODONE HCl 5 MG 1 tab(s) orally ever y 6 hours 04/10/2025 Active Nystatin 658726 UNIT/ML 5 mL Mouth/Throat Four times a day for 14 day(s) 12/20/2024 Active Potassium Chloride ER 10 MEQ 1 tablet with food Orally Once a day for 90 days Active fentaNYL 50 MCG/HR 1 patch to skin Transdermal every 72 hours 03/05/2025 Active DULoxetine HCl 60 MG 1 capsule Orally On ce a day for 90 days Active Lansoprazole 30 MG 1 capsule 1/2 to 1 hour before morning meal Orally Twice a day Active traZODone HCl 50 MG 1 1/2 tablets at bedtime as needed Orally as directed for 90 day(s) 06/20/2024 Active Nystop 098077 UNIT/GM 1 application Externally Twice a day for 30 days 07/15/2024 Active Anusol-HC 2.5 % 1 application Externally Twice a day for 7 days 09/19/2023 Active SOCIAL HISTORY Tobacco Use: Social History Observation Description Date Details (start date - stop date) Former Smoker NA - NA Sex Assigned At : Social History Observation Description Sex Assigned At Unknown Smoking Question Answer Notes Are you a: former smoker How long has it been since you last smoked? > 10 years Section Notes: quit smoking 2001 VITAL SIGNS Height 58.25 in 04/23/2025 Weight 184.6 lbs 04/23/2025 Blood pressure systolic 134 mm Hg 04/23/20 25 Blood pressure diastolic 76 mm Hg 025 BMI 38.25 kg/m2 04/23/2025 Encounters Encounter Location Date Provider Diagnosis [facility] [address] [place] [address] 04/23/2025 [facility] Essential (primary) hypertension I10 and Chronic obstructive pulmonary disease, unspecified COPD type J44.9 ASSESSMENTS Encounter Date Diagnosis Assessment Notes Treatment Notes Treatment Clinical Notes Section Notes 04/23/2025 Essential (primary) hypertension (ICD-10 - I10) 1. Hypertension: Markedly better today. Will maintain current regimen with no changes 2. COPD: Question allergy to something in her home. We discussed trying an air filter to see if this helps at least in her bedroom. She has upcoming follow-up with Dr. Cline and has an echocardiogram pending 04/23/2025 Chronic obstructive pulmonary disease, unspecified COPD type (ICD-10 - J44.9) 1. Hypertension: Markedly better today. Will maintain current regimen with no changes 2. COPD: Question allergy to something in her home. We discussed trying an air filter to see if this helps at least in her bedroom. She has upcoming follow-up with Dr. Cline and has an echocardiogram pending PLAN OF TREATMENT Medication Medication Name Sig Start Date Stop Date Notes Toprol XL 50 MG 1 tab(s) orally once a day Losartan Potassium-HCTZ 100-25 MG 1 tablet Orally Once a day for 90 days 12/30/2024 Singulair 10 MG 1 tab(s) orally once a day (in the evening) Daliresp 500 MCG 1 tab(s) orally once a day on hold until Pulm 04/24/25 amLODIPine Besylate 5 MG 1 tablet Orally Once a day Dupixent 300 MG/2ML as directed Subcutan eous every 14 days Albuterol Sulfate HFA 108 (90 Base) MCG/ACT 2 puff(s) inhaled qid prn Trelegy Ellipta 200-62.5-25 MCG/ACT 1 puff Inhalation Once a day Next Appt Details Provider Name:JORGE DRISCOLL , 08/19/2025 11:00:00 AM, [address] [place] [address], [phone], Provider Name:JORGE DRISCOLL , 10/29/2025 11:15:00 AM, [address] [place] [address], [phone], Progress Notes * Examination Category Sub-Category Detail Notes Category Not es General Examination Heart: RSR, normal S1S2 Lungs: clear to auscultatio n Extremities: no edema General Appearance no apparent distress , pleasant, obese Psych: alert, oriented X 3 Other normal affect History and Physical Notes * HPI (History of Present Illness) Category Sub-Category Detail Notes Category Not es General Patient is here for follow-up blood pressure. She took all her meds on time this morning and feels less stressed. She has not been having chest pain. She continues to struggle with intermittent wheezing and feels this is actually more prevalent when she is at home.
--- OUTSIDE RECORDS SUMMARY | 2025-04-28 12:31 | XMS_ITS ---
Author Organization [facility] Address [address] [place], [place] [id number] Care Team Providers Care Forest Fire Control Officer Name Role Phone JORGE DRISCOLL Primary Care Provider [phone] REASON FOR VISIT Fentanyl Refill MEDICATIONS Medication SIG (Take, Route, Fr equency, Duration) Notes Start Date End Date Status fentaNYL 50 MCG/HR 1 patch to skin Briseno sdermal every 72 hours for 30 days 04/29/2025 Active Encounters Encounter Location Date Provider Diagnosis [address] [id number] 04/28/2025 JORGE DRISCOLL Spinal stenosis, lumbosacral region M48.07 ASSESSMENTS Encounter Date Diagnosis Assessment Notes Treatment Notes Treatment Clinical Notes Section Notes 04/28/2025 Spinal stenosis, lumbosacral region (ICD-10 - M48.07) PLAN OF TREATMENT Medication Medication Name Sig Start Date Stop Date Notes fentaNYL 50 MCG/HR 1 patch to skin Briseno sdermal every 72 hours for 30 days 04/29/2025 Next Appt Details Provider Name:JORGE Lopez YAMILA , 08/19/2025 11:00:00 AM, [address] [place] [address], [phone], Provider Name:JORGE DRISCOLL , 10/29/2025 11:15:00 AM, [address] [place] [address], [phone],
--- OUTSIDE RECORDS SUMMARY | 2025-05-16 08:55 | XMS_ITS ---
Author Organization [facility] Address [address] [place], [place] [id number] Care Team Providers Care Electric Range Servicer Name Role Phone JORGE DRISCOLL Primary Care Provider REASON FOR VISIT Oxycodone MEDICATIONS Medication SIG (Take, Route, Fr equency, Duration) Notes Start Date End Date Status Pregabalin 75 MG 1 capsule Orally 2 t imes daily for 90 day(s) 05/16/2025 Active oxyCODONE HCl 5 MG 1 tab(s) orally ever y 6 hours for 14 days 05/16/2025 Active Encounters Encounter Location Date Provider Diagnosis [address] [address] 05/16/2025 JORGE DRISCOLL Spinal stenosis, lumbosacral region M48.07 ASSESSMENTS Encounter Date Diagnosis Assessment Notes Treatment Notes Treatment Clinical Notes Section Notes 05/16/2025 Spinal stenosis, lumbosacral region (ICD-10 - M48.07) PLAN OF TREATMENT Medication Medication Name Sig Start Date Stop Date Notes Pregabalin 75 MG 1 capsule Orally 2 t imes daily for 90 day(s) 05/16/2025 oxyCODONE HCl 5 MG 1 tab(s) orally ever y 6 hours for 14 days 05/16/2025 Next Appt Details Provider Name:JORGE DRISCOLL , 08/19/2025 11:00:00 AM, [address] [place] [address], [phone], Provider Name:JORGE DRISCOLL , 10/29/2025 11:15:00 AM, [address] [place] [address], [phone],
--- OUTSIDE RECORDS SUMMARY | 2025-06-05 07:01 | XMS_ITS ---
Author Organization [facility] Address [address] [place], [place] [id number] Care Team Providers Care Microphone Operator Name Role Phone JORGE DRISCOLL Primary Care Provider REASON FOR VISIT Fentanyl Refill MEDICATIONS Medication SIG (Take, Route, Fr equency, Duration) Notes Start Date End Date Status fentaNYL 50 MCG/HR 1 patch to skin Briseno sdermal every 72 hours for 30 days 06/05/2025 Active Encounters Encounter Location Date Provider Diagnosis [address] [address] 06/05/2025 JORGE DAVISFORD Spinal stenosis, lumbosacral region M48.07 ASSESSMENTS Encounter Date Diagnosis Assessment Notes Treatment Notes Treatment Clinical Notes Section Notes 06/05/2025 Spinal stenosis, lumbosacral region (ICD-10 - M48.07) PLAN OF TREATMENT Medication Medication Name Sig Start Date Stop Date Notes fentaNYL 50 MCG/HR 1 patch to skin Briseno sdermal every 72 hours for 30 days 06/05/2025 Next Appt Details Provider Name:JORGE Lopez YAMILA , 08/19/2025 11:00:00 AM, [address] [place] [address], [phone], Provider Name:JORGE DAVISFORD , 10/29/2025 11:15:00 AM, [address] [place] [address], [phone],
--- OUTSIDE RECORDS SUMMARY | 2025-06-12 07:15 | XMS_ITS ---
Author Organization [facility] Address [address] [facility] [place] [address] Care Team Providers Care Cruise Agent Name Role Phone Arnulfo Barry MD Primary Care Provider Unavailab Flores Astudillo Unavailable [phone] Allergies Allergen (clinical drug ingredient) Drug/Non Drug Allergy documented on EMR Reaction Allergy Type Onset Date Status meperidine Demerol dry heaves Drug Allergy Activ e Medications Medication SIG (Take, Route, Frequency, Duration) Notes Start Date End Date Status Dupixent 300 MG/2ML Subcutaneous; Durati on: 28 Days Active Azithromycin Not-Manuelito ing Daliresp Not-Taking Fasenra 30 MG/ML Subcutaneous; Durati on: 28 Not-Taking Lansoprazole Not-Manuelito ing LORazepam Active Trelegy Ellipta 200-62.5-25 MCG/ACT Inhalation; Duration: 30 Active [place] innersoles . . . Dx; Duration: . 06/11/2018 Active Cymbalta 60 MG 1 capsule Orally Onc e a day; Duration: 30 day(s) Active oxyCODONE HCl PRN Active Vitamin D Active Toprol XL 50 MG Orally Acti ve Amlodipine & Diet Manage Prod 5mg Active Prevacid 30mg Active Calcium 750mg Active Albuterol 90mcg Acti ve Klor-Con 10 Active DULoxetine HCl Activ e Montelukast Sodium A ctive Metoprolol Succinate ER Active traZODone HCl 50 MG 1 tablet at bedtime as needed Orally Once a day Active Lyrica 75mg Not-Taki ng oxyCODONE HCl 3/325mg Not-Taking fentaNYL 50 MCG/HR 1 patch to skin Transdermal Active Keflex 500 MG 1 capsule Orally mitchel ry 12 hrs; Duration: 10 day(s) 06/09/2014 Not-Taking Symbicort 80-4.5 MCG/ACT 2 puffs Inhalat ion Twice a day Not-Taking Keflex 500 MG 1 capsule Orally Twi ce a day; Duration: 10 day(s) 07/07/2014 Not-Taking Keflex 500 MG 1 capsule Orally mitchel ry 12 hrs; Duration: 10 day(s) 07/14/2014 Not-Taking AFO-fixed fixed 1 09/03/2014 Not -Taking Xyzal 5 MG 0.5 tablet in the evening Orally Once a day; Duration: 30 day(s) Not-Taking Potassium Acetate No t-Taking Wellbutrin 75mg Not- Taking Furosemide 20 MG 1 tablet Orally Once a day; Duration: 30 day(s) Not-Taking Lisinopril-hydroCHLOROthi azide 20-25 MG 2 tablets Orally Once a day; Duration: 30 day(s) Not-Taking LORazepam 0.5 MG 1 tablet at bedtime as needed Orally Once a day Not-Taking Flovent Diskus 220mcg Not-Taking Actonel 150mg Not-Ta stephanie Virtussin A/C Not-Ta stephanie Slow Fe Not-Taking GaviLyte-G Not-Takin g Encounters Encounter Location Date Provider Diagnosis [facility] [address] [address] 06/12/2025 Flores Lowry Plan Of Treatment Next Appt Details Provider Name:Flores A Alen , 08/28/2025 02:15:00 PM, [address] [place] [address], [phone], Provider Name:Flores A Alen , 10/30/2025 09:30:00 AM, [address] [place] [address], [phone], Progress Notes * Letty WOOD ADOB:[birth year] (80 yo F)Acc No.[id number]:06/12/2025 Progress Note Patient: Ragini Letty FLORES Provider: Miguel Lowry DPM :1945 A ge:79 Y S ex:Female Date:06/12/2025 Address:[address] [place], [place] [address], [id number] Pcp:Arnulfo Barry MD Subjective: * Chief Complaints: * * Medical History: R eflux, Poor circulation, Hypertension, Broken bones, Back, hip, knee pain, Asthma. * Medications: T aking traZODone HCl 50 MG Tablet 1 tablet at bedtime as needed Orally Once a day , Taking fentaNYL 50 MCG/HR Patch 72 Hour 1 patch to skin Transdermal , Taking DULoxetine HCl , Taking Metoprolol Succinate ER , Taking Montelukast Sodium , Taking Klor-Con 10 , Taking Albuterol 90mcg , Taking Amlodipine & Diet Manage Prod 5mg , Taking Calcium 750mg , Taking Prevacid 30mg , Taking Toprol XL 50 MG Tablet Extended Release 24 Hour Orally , Taking Vitamin D , Taking Cymbalta 60 MG Capsule Delayed Release Particles 1 capsule Orally Once a day , Taking [place] innersoles . . . . Dx , Taking oxyCODONE HCl , Notes to Pharmacist: PRN, Taking LORazepam , Taking Trelegy Ellipta 200-62.5-25 MCG/ACT Aerosol Powder Breath Activated Inhalation , Taking Dupixent 300 MG/2ML Solution Auto-injector Subcutaneous , Not-Taking/PRN Fasenra 30 MG/ML Solution Prefilled Syringe Subcutaneous , Not-Taking/PRN Lansoprazole , Not-Taking/PRN Azithromycin , Not-Taking/PRN Daliresp , Not-Taking/PRN Slow Fe , Not-Taking/PRN GaviLyte-G , Not-Taking/PRN Actonel 150mg , Not-Taking/PRN Virtussin A/C , Not-Taking/PRN Flovent Diskus 220mcg , Not-Taking/PRN Potassium Acetate , Not-Taking/PRN Wellbutrin 75mg , Not-Taking/PRN Lisinopril-hydroCHLOROthiazide 20-25 MG Tablet 2 tablets Orally Once a day , Not-Taking/PRN LORazepam 0.5 MG Tablet 1 tablet at bedtime as needed Orally Once a day , Not-Taking/PRN Furosemide 20 MG Tablet 1 tablet Orally Once a day , Not-Taking/PRN Symbicort 80-4.5 MCG/ACT Aerosol 2 puffs Inhalation Twice a day , Not-Taking/PRN AFO-fixed fixed orthotic 1 , Not-Taking/PRN Xyzal 5 MG Tablet 0.5 tablet in the evening Orally Once a day , Not-Taking/PRN Keflex 500 MG Capsule 1 capsule Orally Twice a day , Not- Taking/PRN Keflex 500 MG Capsule 1 capsule Orally every 12 hrs , Not-Taking/PRN Keflex 500 MG Capsule 1 capsule Orally every 12 hrs , Not-Taking/PRN Lyrica 75mg , Not- Taking/PRN oxyCODONE HCl 3/325mg * Allergies: D emerol: dry heaves - Allergy. Objective: * Vitals: Assessment: Plan: * Treatment: * Images: * The named appointment provid er may or may not be the originator of this progress note, and it is not deemed complete until electronically signed by the appointment provider. Sign off status: Pending * Provider: Miguel Lowry DPM Date: 0 06/12/2025 Generated for Duran cunha/Ila/Farideh on: 12:12 PM EDT
--- OUTSIDE RECORDS SUMMARY | 2025-07-16 09:16 | XMS_ITS ---
Author Organization [facility] Address [address] [place], [place] [id number] Care Team Providers Care Director Custom Name Role Phone JORGE DRISCOLL Primary Care Provider [phone] REASON FOR VISIT Fentanyl Patch MEDICATIONS Medication SIG (Take, Route, Fr equency, Duration) Notes Start Date End Date Status fentaNYL 50 MCG/HR 1 patch to skin Briseno sdermal every 72 hours for 30 days 07/16/2025 Active Encounters Encounter Location Date Provider Diagnosis [address] [address] 07/16/2025 JORGE DAVISFORD Spinal stenosis, lumbosacral region M48.07 ASSESSMENTS Encounter Date Diagnosis Assessment Notes Treatment Notes Treatment Clinical Notes Section Notes 07/16/2025 Spinal stenosis, lumbosacral region (ICD-10 - M48.07) PLAN OF TREATMENT Medication Medication Name Sig Start Date Stop Date Notes fentaNYL 50 MCG/HR 1 patch to skin Briseno sdermal every 72 hours for 30 days 07/16/2025 Next Appt Details Provider Name:JORGE Lopez YAMILA , 08/19/2025 11:00:00 AM, [address] [place] [address], [phone], Provider Name:JORGE DAVISFORD , 10/29/2025 11:15:00 AM, [address] [place] [address], [phone],
--- OUTSIDE RECORDS SUMMARY | 2025-07-18 07:00 | XMS_ITS ---
Author Organization [facility] Address [address] [place], [place] [address] Care Team Providers Care Guidance Counselor Name Role Phone JORGE DRISCOLL Primary Care Provider [phone] ALLERGIES Allergen (clinical drug ingredient) Drug/Non Drug Allergy documented on EMR Reaction Allergy Type Onset Date Status PRESERVATIVE FREE (uncoded) Demerol Allergy 07/12/2009 Active meperidine Demerol Unknown Drug Allergy Active Gabapentin Enacarbil ER EDEMA Drug Allergy Active meperidine Meperidine HCl Demerol Drug Allergy 07/12/2009 Active REASON FOR VISIT 3mo, decided to get flu vacc today MEDICATIONS Medication SIG (Take, Route, Frequency, Duration) Notes Start Date End Date Status Lansoprazole 30 MG 1 capsule 1/2 to 1 hour before morning meal Orally Twice a day Active Dupixent 300 MG/2ML as directed Subcutaneous every 14 days Active Nystop 368742 UNIT/GM 1 application Externally Twice a day for 30 days 07/15/2024 Active DULoxetine HCl 60 MG 1 capsule Orally On ce a day for 90 days Active Nystatin 824246 UNIT/ML 5 mL Mouth/Throat Four times a day for 14 day(s) 12/20/2024 Active Albuterol Sulfate HFA 108 (90 Base) MCG/ACT 2 puff(s) inhaled qid prn Active Anusol-HC 2.5 % 1 application Externally Twice a day for 7 days 09/19/2023 Active Trelegy Ellipta 200-62.5-25 MCG/ACT 1 puff Inhalation Once a day Active amLODIPine Besylate 5 MG 1 tablet Orally Once a day Active Losartan Potassium-HCTZ 100-25 MG 1 tablet Orally Once a day 12/30/2024 Active traZODone HCl 50 MG TAKE 1 AND 1/2 TABLE TS BY MOUTH AT BEDTIME NEEDED DIRECTED for 90 Active Toprol XL 50 MG 1 tab(s) orally once a day for 90 days Active fentaNYL 50 MCG/HR 1 patch to skin Transdermal every 72 hours for 30 days 07/16/2025 Active Singulair 10 MG 1 tab(s) orally once a day (in the evening) Active Potassium Chloride ER 10 MEQ 1 tablet with food Orally Once a day for 90 days Active oxyCODONE HCl 5 MG 1 tab(s) orally ever y 6 hours for 14 days 05/16/2025 Active Pregabalin 75 MG 1 capsule Orally 2 times daily for 90 day(s) 05/16/2025 Active Daliresp 500 MCG 1 tab(s) orally once a day on hold until Pulm end of 07/2025 Active IMMUNIZATIONS Vaccine Route Administration Date Status Comme nts Influenza, Fluzone HD 65+ IM Intramuscular 07/18/2025 Admi nistered SOCIAL HISTORY Tobacco Use: Social History Observation Description Date Details (start date - stop date) Former Smoker NA - NA Sex Assigned At : Social History Observation Description Sex Assigned At Unknown Smoking Question Answer Notes Are you a: former smoker How long has it been since you last smoked? > 10 years Section Notes: quit smoking 2001 PROBLEMS Problem Type ICD Code Onset Dates Problem Status W/U Status Risk SNOMED Code Notes Problem Persistent depressive disorder (F34.1) Active confirmed 4801563860 VITAL SIGNS Height 58.25 in 07/18/2025 Weight 179.0 lbs 07/18/2025 Blood pressure systolic 116 mm Hg 07/18/20 25 Blood pressure diastolic 60 mm Hg 025 BMI 37.09 kg/m2 07/18/2025 Encounters Encounter Location Date Provider Diagnosis [facility] [address] [place] [address] 07/18/2025 JORGE DRISCOLL Essential (primary) hypertension I10 ; Chronic obstructive pulmonary disease, unspecified COPD type J44.9 ; Spinal stenosis, lumbosacral region M48.07 ; Encounter for administration of vaccine Z23 and Persistent depressive disorder F34.1 ASSESSMENTS Encounter Date Diagnosis Assessment Notes Treatment Notes Treatment Clinical Notes Section Notes 07/18/2025 Essential (primary) hypertension (ICD-10 - I10) 1. Hypertension: Unclear whether the patient has been taking her metoprolol consistently. She has an prescription at home. I renewed today and we will recheck her back in 4 weeks to ensure stable readings on current regimen. Recurrent losartan hydrochlorothiazide as well 2. COPD: Stable on Trelegy, as needed albuterol, Dupixent, Daliresp and Singulair. Maintain present dosing. Flu shot given today 3. Lumbar spinal stenosis. Continues to get periodic epidural steroid injections from Dr. Roman. Will continue current pain medication including fentanyl and oxycodone which she is using as directed without adverse effect 4. Depression: Stable on current duloxetine. Will maintain present dosing 07/18/2025 Chronic obstructive pulmonary disease, unspecified COPD type (ICD-10 - J44.9) 1. Hypertension: Unclear whether the patient has been taking her metoprolol consistently. She has an prescription at home. I renewed today and we will recheck her back in 4 weeks to ensure stable readings on current regimen. Recurrent losartan hydrochlorothiazide as well 2. COPD: Stable on Trelegy, as needed albuterol, Dupixent, Daliresp and Singulair. Maintain present dosing. Flu shot given today 3. Lumbar spinal stenosis. Continues to get periodic epidural steroid injections from Dr. Roman. Will continue current pain medication including fentanyl and oxycodone which she is using as directed without adverse effect 4. Depression: Stable on current duloxetine. Will maintain present dosing 07/18/2025 Spinal stenosis, lumbosacral region (ICD-10 - M48.07) 1. Hypertension: Unclear whether the patient has been taking her metoprolol consistently. She has an prescription at home. I renewed today and we will recheck her back in 4 weeks to ensure stable readings on current regimen. Recurrent losartan hydrochlorothiazide as well 2. COPD: Stable on Trelegy, as needed albuterol, Dupixent, Daliresp and Singulair. Maintain present dosing. Flu shot given today 3. Lumbar spinal stenosis. Continues to get periodic epidural steroid injections from Dr. Roman. Will continue current pain medication including fentanyl and oxycodone which she is using as directed without adverse effect 4. Depression: Stable on current duloxetine. Will maintain present dosing 07/18/2025 Encounter for administration of vaccine (ICD-10 - Z23) HD influenza administered patient counseled and VIS provided 1. Hypertension: Unclear whether the patient has been taking her metoprolol consistently. She has an prescription at home. I renewed today and we will recheck her back in 4 weeks to ensure stable readings on current regimen. Recurrent losartan hydrochlorothiazide as well 2. COPD: Stable on Trelegy, as needed albuterol, Dupixent, Daliresp and Singulair. Maintain present dosing. Flu shot given today 3. Lumbar spinal stenosis. Continues to get periodic epidural steroid injections from Dr. Roman. Will continue current pain medication including fentanyl and oxycodone which she is using as directed without adverse effect 4. Depression: Stable on current duloxetine. Will maintain present dosing 07/18/2025 Persistent depressive disorder (ICD-10 - F34.1) 1. Hypertension: Unclear whether the patient has been taking her metoprolol consistently. She has an prescription at home. I renewed today and we will recheck her back in 4 weeks to ensure stable readings on current regimen. Recurrent losartan hydrochlorothiazide as well 2. COPD: Stable on Trelegy, as needed albuterol, Dupixent, Daliresp and Singulair. Maintain present dosing. Flu shot given today 3. Lumbar spinal stenosis. Continues to get periodic epidural steroid injections from Dr. Roman. Will continue current pain medication including fentanyl and oxycodone which she is using as directed without adverse effect 4. Depression: Stable on current duloxetine. Will maintain present dosing PLAN OF TREATMENT Medication Medication Name Sig Start Date Stop Date Notes Albuterol Sulfate HFA 108 (9 0 Base) MCG/ACT 2 puff(s) inhaled qid prn Trelegy Ellipta 200-62.5-25 MCG/ACT 1 puff Inhalation Once a day amLODIPine Besylate 5 MG 1 tablet Orally Once a day Losartan Potassium-HCTZ 100-25 MG 1 tablet Orally Once a day 12/30/2024 Toprol XL 50 MG 1 tab(s) orally once a day for 90 days Singulair 10 MG 1 tab(s) orally once a day (in the evening) Treatment Notes Assessment Notes Encounter for administration of vaccine HD influenza administered patient counseled and VIS provided Next Appt Details Provider Name:JORGE DRISCOLL , 08/19/2025 11:00:00 AM, [address] [place], [phone], Provider Name:JORGE DRISCOLL , 10/29/2025 11:15:00 AM, [address] [facility], [place], [phone], Progress Notes * Examination Category Sub-Category Detail Notes Category Not es General Examination Heart: RSR, normal S1S2 Lungs: clear to auscultatio n Abdomen: soft, non tender/non distended Extremities: no edema General Appearance no apparent distress , pleasant Psych: alert, oriented X 3 Other normal affect History and Physical Notes * HPI (History of Present Illness) Category Sub-Category Detail Notes Category Not es General Patient is feel ing generally well. Breathing has been stable. She is due for an upcoming lumbar injection with Dr. Roman and is eager for this as her back has been bothering her more. She is not having any chest pain or palpitations. Mood has been stable.
--- OUTSIDE RECORDS SUMMARY | 2025-07-18 11:34 | XMS_ITS ---
Author Organization [facility] Address [address] [place], [place] [id number] Care Team Providers Care Wafer Production Worker Name Role Phone JORGE DRISCOLL Primary Care Provider REASON FOR VISIT Recieved Message from Spine Dr Office MEDICATIONS Medication SIG (Take, Route, Fr equency, Duration) Notes Start Date End Date Status oxyCODONE HCl 5 MG 1 tab(s) orally ever y 6 hours for 14 days 07/18/2025 Active Encounters Encounter Location Date Provider Diagnosis [address] [address] 07/18/2025 JORGE DAVISFORD Spinal stenosis, lumbosacral region M48.07 ASSESSMENTS Encounter Date Diagnosis Assessment Notes Treatment Notes Treatment Clinical Notes Section Notes 07/18/2025 Spinal stenosis, lumbosacral region (ICD-10 - M48.07) PLAN OF TREATMENT Medication Medication Name Sig Start Date Stop Date Notes oxyCODONE HCl 5 MG 1 tab(s) orally ever y 6 hours for 14 days 07/18/2025 Next Appt Details Provider Name:JORGE DRISCOLL , 08/19/2025 11:00:00 AM, [address] [place] [address], [phone], Provider Name:JORGE DAVISFORD , 10/29/2025 11:15:00 AM, [address] [place] [address], [phone],
--- OUTSIDE RECORDS SUMMARY | 2025-08-14 06:15 | XMS_ITS ---
Author Organization [facility] Address [address] [place] [phone] Care Team Providers Care Desktop Support Specialist Name Role Phone Arnulfo Barry MD Primary Care Provider Unavailab Flores Astudillo [phone] Encounters Encounter Location Date Provider Diagnosis [address] [address] 08/14/2025 Flores Alen Plan Of Treatment Next Appt Details Provider Name:Flores Maria Alen , 08/28/2025 02:15:00 PM, [address] [place] [address], [phone], Provider Name:Flores Maria Alen , 10/30/2025 09:30:00 AM, [address] [place] [address], [phone], Progress Notes * Sahara WOODricia ADOB:[birth year] (80 yo F)Acc No.[id number]:08/14/2025 Progress Note Patient: Letyt ZEPEDA Provider: Miguel Lowry DPM :1945 A ge:80 Y S ex:Female Date:08/14/2025 Address:[address] [place] [address] [phone] Pcp:Arnulfo Barry MD Subjective: * Chief Complaints: * * Medical History: Objective: * Vitals: Assessment: Plan: * Treatment: * Images: * The named appointment provid er may or may not be the originator of this progress note, and it is not deemed complete until electronically signed by the appointment provider. Sign off status: Pending * Provider: Miguel Lowry DPM Date: Generated for Duran cunha/Ila/Farideh on: 12:12 PM EDT
[2025-08-15 10:51] VITALS: BP 124/72; PULSE 93; O2SAT 94; BMI 33.9
--- NOTE | 2025-08-15 10:51 | A.OFFVIS_ITS ---
Vital Signs 08/15/25 10:51 Height 5 ft 1 in Weight 179 lb 10.828 oz BMI 33.9 BP 124/72 Blood Pressure Location Lt brachial Position Sitting Pulse 93 Pulse Source Pulse Oximeter Pulse Oximetry (%) 94 Oxygen Delivery Method Room Air Intake Visit Reasons: Cough Abalone Diver Required: No Allergies doxycycline Allergy (Severe, Verified 08/15/25 10:58) GI Upset Demerol Allergy (Severe, Uncoded 03/25/25 14:35) vomitting Meperidine Allergy (Severe, Uncoded 03/25/25 14:35) Dry Mouth HPI Comments Details: The patient is a 80-year-old woman with known chronic bronchitis in addition to reflux disease and chronic pain issues. Overall she has been doing fairly well on it current respiratory regimen. She has been able to stay healthy and stay off prednisone. She has been using the azithromycin Monday and Monday. Usually 250 mg. Sometimes when she gets sick we do increased to 500. Patient u nderstands that the medication get effect her EKG and assess her QT. Therefore, during the next visit will have to check her EKG. She continues using Daliresp. Denies any GI symptoms from the medication. She continues her respiratory therapy. She has not had to take any prednisone. She did have a CT chest back in 03/2019 with numerous pulmonary nodules. 03/04/2024 the patient is here for a pulmonary follow-up visit. She has feeling a lot better from a respiratory symptoms. She is back to her baseline. She is very appreciative by the fact that her medications have been helping her and she has been feeling better from a breathing standpoint. However, she did develop a severe pain on the bottom of her right chest area while trying to bend over and lean over something to try to reach something. By doing that movement she felt a pop in that developing pain in 1 of her rib areas. She has not sure if she pulled muscle or if she hurt her rib. It is definitely tender to the touch. She has a hard time taking a deep breath in. Likely floating rib based on the location. The patient also has a slight rash over the airway. Doubt that is shingles but is also in differential. Will try putting Lidoderm patch in the area. She can also try some muscle relaxant to see the provide some relief. In the meantime she continues with the Fasenra injection which is very helpful for her. She continues with respiratory therapy as well. If the patient is not better from the pain she can always get an x-ray with rib series to make sure that we do not see any fracture ribs to explain her symptoms. 08/05/2024 the patient is here for a pulmonary follow-up visit. She has a preoperative evaluation today for total knee replacement that is going to occur sometime this week. She is doing well from a respiratory status. She has been on Trelegy taking daily. In addition to that she had been on the Fasenra biologic therapy that has been very affecting beneficial. She still having some chest congestion at times. [id number]-vy-zovcucwe severity. Primarily when she lies flat. This has to do with the fact that her dog sick and she is having to put the bed down. I am hopeful that she can bring the bed up a little bit higher though. In the meantime her respiratory exam is reassuring. At this point she may able to proceed with anesthesia and surgery this time. She does have mod erate risk for perioperative pulmonary complications which includes; atelectasis hypoxia pneumonia and COPD exacerbations. But at this point the patient is medically optimized may be able to proceed with surgery. 09/09/2024 the patient is here for a pulmonary follow-up visit. Overall she is doing well from a respiratory status. The Trelegy inhaler has been very affecting beneficial. She also has been on the Fasenra injections also been very affecting beneficial. She has not had to use her rescue inhaler but right now is it make sure that she has a new 1. In the meantime she did have a knee done and the patient unfortunately had a fall hurting her knee replacement and also she fracture left facial bones. She is going to follow-up with the specialists for that. She has been on aspirin to avoid blood clots right now. Her breathing is very good right now. She is going to continue working with physical therapy in orthopedist in specialist regarding her facial fractures better from a pulmonary standpoint she will continue with the current regimen that is been very effective in beneficial for her. 03/11/2025 the patient is here for a pulmonary follow-up visit. She still complains of significant productive cough and ongoing coughing shortness of breath. The Fasenra has not been very helpful. She also has significant atopic dermatitis that seems to be getting worse. Therefore, since she is already on biologic therapy with Fasenra will go ahead and switch over to Dupixent and she failed Fasenra therapy. Will go ahead and request additional blood work at this time as well. She did follow-up with Dermatology in the did also recommend she switch over to Dupixent at this time. Hopefully this will helps her symptoms. In the meantime she continues on the Trelegy inhaler. She was continues with a cough. Will try the Tessalon Perles symptoms provide some relief although they may not be covered. In the meantime we did go for a walking oximetry in the office in although she did not qualify for oxygen with activity she did drop down to 91%. She also had evidence of electrical alternans bringing up the possibility of a cardiac etiology. Therefore going to request an echocardiogram. She is also going to follow-up with the primary care doctor soon and she can talk to them about additional cardiac evaluations. Today after the visit she is going to undergo blood work and also chest x-ray. If anything is abnormal let her know. Otherwise will follow-up in 6-8 weeks. 04/24/2025 the patient is here for pulmonary follow-up visit. Overall the loyd t has been doing okay. She did switch over to the Dupixent seems to be tolerating it well. She has not seen any significant improvement though. Explained to her that it is still too early. Only she is tolerating it without any adverse effects. The patient also is waiting for her echocardiogram and also the overnight oximetry has not been done yet. I did send a message to reach out to the DME in order to get the overnight oximetry as soon as possible. Her major complaint is cough at nighttime. It may be related to reflux or postnasal drip but just irritation to the larynx. She does appear to have some hoarseness. Also, she had been on lisinopril as far as her blood pressure medications in several weeks ago she was taken off. So hopefully once the medication completely wears off her cough also improved. At this point will continue with the current respiratory therapy she can use the Tessalon Perles prior to sleep and also she can use her rescue inhaler prior to going to sleep to see if this can provide her with her ongoing cough symptoms at nighttime. She does have her Trelegy inhaler that she uses in the morning with very good effect. 08/15/2025 the patient is here for pulmonary follow-up visit. She is still complaining of shortness of breath with minimal activity. Even doing her activities of daily living she gets very winded. Continues to be on a very aggressive respiratory regimen seems like her asthma is significantly better. Has not had any wheezing or chest tightness. She did have an echocardiogram demonstrating some diastolic dysfunction. In addition to that the patient did get an overnight oximetry demonstrating significant hypoxia she did qualify for oxygen and we did order an oxygen concentrator for home. However, it does not seem to be working. She needs to call the [employer] company and also reach out to the [employer] company to make sure that they reach out to her as well. In the meantime we did go for brief walking oximetry the patient did desaturate down to 86% with activity. It appeared to be once the patient exercise and she rested there was a delay effects suggesting some degree of perfusion related issues. So therefore, will give her additional diuretics for at least 2-3 days to try to improve her volume status. She should follow-up with primary care and also potentially Cardiology as her pulmonary symptoms have been significantly treated with both biologics and aggressive respiratory therapy. [facility] Medical History (Updated 03/11/25 @ 20:50 by Oleg Cline MD) Dyspnea on exertion Pre-op chest exam Pleuritic chest pain Asthma Insomnia Chronic allergic rhinitis COPD (chronic obstructive pulmonary disease) Pulmonary nodules Social History Patient Tobacco Use Status: Former Tobacco user Tobacco use type: Cigarette Years Smoked: 45 Years Review of Systems Const Reports fatigue and Denies night sweats ENT Reports as per HPI, Denies change in voice, Denies lip swelling, Denies mouth pain, Reports nasal congestion, Reports nasal discharge, Reports post nasal drip and Denies tongue swelling Card Denies chest pain, Denies dyspnea and Reports dyspnea on exertion Resp Denies change in phlegm color, Reports chest congestion, Reports cough, Denies hemoptysis, Reports pain on inspiration, Reports pain with cough, Denies dyspnea, Reports dyspnea on exertion and Denies wheezing GI Denies abdominal pain Musc Reports as per HPI, Reports myalgias, Reports arthralgias, Reports joint swelling, Reports limited range of motion, Reports muscle weakness, Reports numbness and Reports stiffness Skin/Breast Reports unusual bruising Neuro Denies Neuro-related abnormal movements and Reports numbness Psych Denies no additional complaints Endo Reports fatigue Harman/Lymph Denies easy bleeding and Denies lymphadenopathy Aller/Immun Denies lip swelling, Denies tongue swelling and Denies wheezing Physical Exam Vital Signs: Last Vital Signs Pulse 93 08/15/25 10:51 BP 124/72 08/15/25 10:51 Pulse Ox 94 08/15/25 10:51 Oxygen Delivery Method Room Air 08/15/25 10:51 BMI result Body Mass Index 33.9 Const General: alert HEENT Head: Yes contusion, Yes scalp lesion, Yes scalp tenderness and Yes other (bruising) General nose exam: Abnormal mucous membranes and turbinates present erythematous and other (papules) Eyes Pupils: Equal, round and reactive pupils present Neck Neck: Yes normal visual inspection, Yes full ROM and Yes no lymphadenopathy Chest Chest palpation & inspection: normal inspection of the chest Resp Effort & Inspection: normal respiratory effort and No prolonged expiratory phase Auscultation: no rhonchi, no wheezes and diminished lung sounds Cardio Rate: regular rate Rhythm: regular rhythm Heart sounds: S1 normal heart sound present and S2 normal heart sound present GI Palpation (GI): Soft to palpation and nontender Auscultation: normal bowel sounds General: Yes no CVA tenderness Back/Spine/Pelvis Back: no CVA tenderness Skin General skin exam: rashes and/or lesions noted Neuro Cranial nerves: Yes Equal, round and reactive pupils present Office Procedures 6 Minute Walk Time:: 12:55 SPO2 % at rest: 95 Pulse at rest: 89 SPO2 % during excercise: 86 Pulse during excercise: 110 Distance in yards walked: 100 Fan Score: 8 Supplemental Oxygen: The patient ambulated briefly and then she stopped once she stopped the heart rate increased and then her saturations dropped to about 86% on room air with a good signal. She was then placed on 2 L pulse and she ambulated and she was able to maintain a pulse ox of 94% with activity on 2 L pulse via the POC. [id number] - 6 Minute Walk Assessment & Plan Assessment & Plan (1) Asthma: Code(s): J45.909 - Unspecified asthma, uncomplicated Category: Medical Qualifiers: Asthma complication type: uncomplicated Asthma persistence: persistent Asthma severity: severe Qualified Code(s): J45.50 - Severe persistent asthma, uncomplicated (2) Chronic allergic rhinitis: Code(s): J30.9 - Allergic rhinitis, unspecified Category: Medical (3) Pulmonary nodules: Code(s): R91.8 - Other nonspecific abnormal finding of lung field Category: Medical (4) Insomnia: Code(s): G47.00 - Insomnia, unspecified Category: Medical Qualifiers: Insomnia type: primary Qualified Code(s): F51.01 - Primary insomnia (5) Bronchitis: Code(s): J40 - Bronchitis, not specified as acute or chronic Category: Medical (6) Dyspnea on exertion: Code(s): R06.09 - Other forms of dyspnea Category: Medical (7) COPD (chronic obstructive pulmonary disease): Code(s): J44.9 - Chronic obstructive pulmonary disease, unspecified Category: Medical Qualifiers: COPD type: COPD with acute lower respiratory infection Qualified Code(s): J44.0 - Chronic obstructive pulmonary disease with (acute) lower respiratory infection Plan Start oxygen with a portable oxygen concentrator 2 L pulse for better portability outside of the home with activity. The patient should also use her home concentrator 2 L/min via nasal cannula while sleeping. The [employer] needs to assess her home concentrator since it is not working correctly. Lasix 10 mg by mouth x3 days conitnue Xopenex as needed continue Dupixent for severe asthma and refractory atopic dermatitis continue acapella valve for CPT continue Trelegy 200mcg nasal rinsing Fluticasone nasal spray STEPAN as needed short-acting beta agonist as needed Benzonates as needed for cough F/U 3-4 months Medications: New furosemide (Lasix) 10 mg (1/2 x 20 mg) PO DAILY 2 tabs 0RF 4 days Coding Level of Care Code Est Pt Level 4 (98610) Complex EM visit Add On G2211 Diagnoses Severe persistent asthma without complication J45.50 Asthma complication type: uncomplicated Asthma persistence: persistent Asthma severity: severe Chronic allergic rhinitis J30.9 Pulmonary nodules R91.8 Primary insomnia F51.01 Insomnia type: primary Bronchitis J40 Dyspnea on exertion R06.09 Chronic obstructive pulmonary disease with acute lower respiratory infection J44.0 COPD type: COPD with acute lower respiratory infection CPT Codes Coding ([id number]) Time Spent (min) 18
--- OUTSIDE RECORDS SUMMARY | 2025-08-15 12:12 | XMS_ITS | Clinical Summary ---
Author Organization [facility] Address [address] [place] [id number] Phone Care Team Providers Care Supervisor Drapery Hanging Name Role Phone Kofi Winchester MD Unavailable [phone] Arnulfo Barry MD Unavailable [phone] Arnulfo Barry MD Primary Care Provider [phone] Allergies Active Allergy Reactions Criticality Noted Date Comments Meperidine GI Upset,Nausea and/ or Vomiting 07/04/2017 Other reaction(s): dry heaves Medications amLODIPine (NORVASC) 5 MG tablet Take 5 mg by mouth nightly at bedtime. Active fentaNYL (DURAGESIC) 50 mcg/hr Place 1 patch onto the skin every third day. Active lisinopril-hydro CHLOROthiazide (PRINZIDE,ZESTOR ETIC) 20-25 mg per tablet Take 2 tablets by mouth every morning. Active pregabalin (LYRICA) 75 MG capsule Take 75 mg by mouth 3 (three) times a day. Active lansoprazole (PREVACID) 30 MG capsule Take 30 mg by mouth nightly at bedtime. Active montelukast (SINGULAIR) 10 mg tablet Take 10 mg by mouth nightly at bedtime. Active metoprolol succinate (TOPROL-XL) 50 MG 24 hr tablet Take 50 mg by mouth nightly at bedtime as needed. Active albuterol 90 mcg/actuation inhaler Inhale 2 puffs into the lungs daily as needed. 03/04/20 Active traZODone (DESYREL) 50 MG tablet Take 50 mg by mouth nightly at bedtime. Active calcium carb/vit D3/minerals (CALCIUM-VITAMIN D ORAL) Take 750 mg by mouth. Only one week every month Active oxyCODONE 5 MG immediate release tablet Take 5 mg by mouth daily as needed. 02/05/20 Active potassium chloride SA (K-DUR,KLOR-CON) 10 MEQ ER tablet 10 mEq daily. 12/24/19 Active DULoxetine (CYMBALTA) 60 MG capsule TK 1 C PO QD 01/19/20 Active buPROPion (WELLBUTRIN) 75 MG immediate release tablet Wellbutrin 75mg Active fluticasone propionate (FLONASE) 50 mcg/actuation nasal spray 2 sprays by Nasal route daily. 01/10/20 23 Active betamethasone, augmented, (DIPROLENE) 0.05 % ointment 03/15/20 23 Active mupirocin (BACTROBAN) 2 % ointment 01/10/20 23 Active NYSTOP powder APPLY TO THE AFFECTED AREA TWICE DAILY TOPICALLY 12/31/19 23 Active tacrolimus (PROTOPIC) 0.1 % ointment APPLY TWICE DAILY TO THE AFFECTED AREA OF THE HANDS DURING OFF WEEK FROM BETAMETHASONE 12/12/19 23 Active TRELEGY ELLIPTA 200-62.5-25 mcg inhaler Inhale 1 puff into the lungs daily. 06/22/20 23 Active FASENRA 30 mg/mL subcutaneous injection 11/06/19 24 Active fentaNYL (DURAGESIC) 25 mcg/hr Place 2 patches onto the skin. 01/02/20 24 Active ketoconazole 2 % cream APPLY TWICE DAILY TO RASH UNDER BREAST CREASE FOR 2 WEEKS REPEAT NEEDED 12/15/19 24 Active Active Problems Problem Noted Date Diagnosed Date Trochanteric bursitis of left hip 04/22/2019 Chronic bilateral low back pain without sciatica 01/15/2019 Lumbosacral spondylosis without myelopathy 01/10 Myalgia 12/11/2018 Lumbar radiculopathy 01/03/2018 Sacroiliitis, not elsewhere classified 7 Encounters Date Type Department Care Team Description 2025 8:40 AM EDT Telemedicine - audio only [facility] [address] [place] [address] Kofi Winchester MD Sacroiliitis, not elsewhere classified (Primary Dx) 2025 Telephone [facility] [address] [place] [address] Dinesh Galeana SI Injection Scheduling from Last 3 Months Immunizations Immunization Administration Dates Next Due Influenza High-Dose Quadrivalent Preservative Fr ee IM 08/31/2020 Influenza Quadrivalent MDCK w/Preservative IM Family History Medical History Relation Comments CV disease Mother 2 Diabetes mellitus Mother 2 Relation Status Comments Mother 1 Mother 2 Social History Tobacco Use Types Packs/Day Years Used Date Smoking Tobacco: Former Cigarettes Q uit: 09/27/2002 Smokeless Tobacco: Never Education Answer Date Recorded Are you interested in more education? Not on waylon e 02/10/2023 Are you concerned about learning? Not on file 02/10/2023 No 02/10/2023 No 02/10/2023 Digital Access Answer Date Recorded No 03/08/2023 No 03/08/2023 Reliable internet access at home? Not on file 03/08/2023 Device with a working camera? Not on file Comments Unknown Sex and Gender Information Value Date Recorded Sex Assigned at Female 06/23/2021 2:01 PM EDT Legal Sex Female 10:38 PM EDT Gender Identity Female 06/23/2021 2:01 PM EDT Sexual Orientation Lesbian or Liao 06/23/2021 2: 01 PM EDT Last Filed Vital Signs Vital Sign Reading Time Taken Comments Blood Pressure 126/70 08/20/2021 8:43 AM EDT pt reported Pulse 75 12/11/2019 9:34 AM EST Temperature 36.3 C (97.3 F) 08/27/2020 9:13 AM EST Respiratory Rate - - Oxygen Saturation 96% 12/11/2019 9:3 4 AM EST Inhaled Oxygen Concentration - - Weight 78.8 kg (173 lb 12.8 oz) 08/20/2021 8:43 AM EDT pt reported Height 152.4 cm (5') 06/23/2021 12:17 PM EDT Body Mass Index 33.94 06/23/2021 12:17 PM EDT Plan of Treatment Upcoming Encounters Date Type Department Care Team (Late st Contact Info) Description 09/25/2025 8:30 AM EST Procedure visit [facility] [place] [address] [place] [address] Kofi Winchester MD [address] [place] [id number] [email or web address] 10/10/2025 8:20 AM EST Telemedicine - audio only [facility] [address] [place] [phone] Kofi Winchester MD [address] [place] [address], [address] [place] [phone] [email or web address] Maintenance Due Date Last Done Comments Adult Td,Tdap Booster 1944 CREATININE LEVEL 1944 POTASSIUM LEVEL 1944 DEPRESSION SCREENING 1956 PNEUMOCOCCAL VACCINES (50+ years) (1 of 1 - PCV) 1994 ZOSTER VACCINES (1 of 2) 1994 OSTEOPOROSIS SCREENING INITI AL (ONE-TIME) 2009 RSV VACCINE (1 - 1-dose 75+ series) 2019 INFLUENZA VACCINE (#1) 2025 0, 11/02/2017 COVID-19 VACCINE (3 - 2024-2 6 season) 2025 12/14/2020, 11/24/2020 HEPATITIS A VACCINES Aged Out No long er eligible based on patient's age to complete this topic HIB VACCINES Aged Out No longer eligi ble based on patient's age to complete this topic MENINGOCOCCAL VACCINES (ACWY) Aged Out No longer eligible based on patient's age to complete this topic MENINGOCOCCAL VACCINES (B) Aged Out N o longer eligible based on patient's age to complete this topic Medical Devices Not on file Insurance MEDICARE PART A & B Valneva CROSS MEDEX SUPPLEMENT [facility] MEDICARE PART A & B [employer] MEDEX SUPPLEMENT B MEDICARE PART A & B Valneva [employer]OSS MEDEX SUPPLEMENT MEDICARE PART A & B [employer] MEDEX SUPPLEMENT MEDICARE PART A & B [employer] MEDEX SUPPLEMENT [address] [place], [place] [id number] MEDICARE PART A & B [facility] MEDEX SUPPLEMENT MEDICARE PART A & B Valneva CROSS MEDEX SUPPLEMENT [facility] MEDICARE PART A & B Valneva CROSS MEDEX SUPPLEMENT [facility] MEDICARE PART A & B Valneva [employer]OSS MEDEX SUPPLEMENT [facility] Care Teams Supervisor Drapery Hanging Relationship Specialty Start Date End Date Arnulfo Barry MD [address] [place] [address] PCP - General Internal Medicine 09/11/17 Kofi Winchester MD [address] [place] [address], [address] [place] [id number] [email or web address] Historical LMR Provider 08/01/17 Arnulfo Barry MD [address] [place] [id number] Historical LMR Provider 08/01/17 Additional Source Comments The information contained in this document represents components of the legal health record. It is not the complete legal health record.[facility]
--- OUTSIDE RECORDS SUMMARY | 2025-08-15 12:13 | XMS_ITS | Patient Health Record ---
[facility] Address [address] [facility] [place] [address] Care Team Providers Care Chiropractic Physician Name Role Phone Arnulfo Barry MD Primary Care Provider Unavailab Flores Astudillo Unavailable [phone] Allergies Allergen (clinical drug ingredient) Drug/Non Drug Allergy documented on EMR Reaction Allergy Type Onset Date Status meperidine Demerol dry heaves Drug Allergy Activ e Reason For Referral No Information Medications Medication SIG (Take, Route, Frequency, Duration) Notes Start Date End Date Status traZODone HCl 50 MG 1 tablet at bedtime as needed Orally Once a day Active Slow Fe Not-Taking fentaNYL 50 MCG/HR 1 patch to skin Transdermal Active Azithromycin Not-Manuelito ing Daliresp Not-Taking DULoxetine HCl Activ e oxyCODONE HCl PRN Active Keflex 500 MG 1 capsule Orally mitchel ry 12 hrs; Duration: 10 day(s) 07/14/2014 Not-Taking LORazepam Active Keflex 500 MG 1 capsule Orally mitchel ry 12 hrs; Duration: 10 day(s) 06/09/2014 Not-Taking Xyzal 5 MG 0.5 tablet in the evening Orally Once a day; Duration: 30 day(s) Not-Taking Harviell innersoles . . . Dx; Duration: . 06/11/2018 Active Keflex 500 MG 1 capsule Orally Twi ce a day; Duration: 10 day(s) 07/07/2014 Not-Taking Fasenra 30 MG/ML Subcutaneous; Durati on: 28 Not-Taking Lansoprazole Not-Manuelito ing Trelegy Ellipta 200-62.5-25 MCG/ACT Inhalation; Duration: 30 Active Lyrica 75mg Not-Taki ng Dupixent 300 MG/2ML Subcutaneous; Durati on: 28 Days Active oxyCODONE HCl 3/325mg Not-Taking AFO-fixed fixed 1 09/03/2014 Not -Taking Vitamin D Active Cymbalta 60 MG 1 capsule Orally Onc e a day; Duration: 30 day(s) Active Prevacid 30mg Active Furosemide 20 MG 1 tablet Orally Once a day; Duration: 30 day(s) Not-Taking Toprol XL 50 MG Orally Acti ve Symbicort 80-4.5 MCG/ACT 2 puffs Inhalat ion Twice a day Not-Taking Metoprolol Succinate ER Active Virtussin A/C Not-Ta stephanie Montelukast Sodium A ctive Flovent Diskus 220mcg Not-Taking GaviLyte-G Not-Takin g Actonel 150mg Not-Ta stephanie Amlodipine & Diet Manage Prod 5mg Active Lisinopril-hydroCHLOROthi azide 20-25 MG 2 tablets Orally Once a day; Duration: 30 day(s) Not-Taking Calcium 750mg Active LORazepam 0.5 MG 1 tablet at bedtime as needed Orally Once a day Not-Taking Klor-Con 10 Active Potassium Acetate No t-Taking Albuterol 90mcg Acti ve Wellbutrin 75mg Not- Taking Immunizations Vaccine Route Administration Date Status Comme nts Influenza Unknown 08/13/2018 Administered Influenza Unknown 04/07/2025 Refused COVID-19 Pfizer BioNTech Vaccine Unknown 09/07/2021 Administered First Dose: 11/24/20 Second Dose:12/14/2020 Social History Tobacco Use: Social History Observation [...] Additional Findings: Tobacco non-user Ex-cigaret te smoker AUDIT-C (Standard) Question Answer Notes Did you have a drink containing alcohol in the p ast year? No Points 0 Interpretation Negative Problems Problem Type SNOMED Code ICD Code Onset Dates Problem Status W/U Status Risk Notes Problem Tinea unguium (204277434) Tinea unguium (B35.1) Active confirmed Vital Signs Blood pressure diastolic 72 mm Hg 06/18/2025 Height 5 ft 1 in in 06/18/2025 Blood pressure systolic 123 mm Hg 06/18/2025 Weight 184 lbs 06/18/2025 BMI 34.76 kg/m2 06/18/2025 Procedures Procedure Date Ordered Date Performed Result Body Sit e 84641-ZSEPWVV NAIL, 6 OR MORE 09/26/2024 N/A 96567-RDLYOFS NAIL, 6 OR MORE 01/30/2025 N/A 05092-GPKJAKN NAIL, 6 OR MORE 04/07/2025 N/A 56458-Ffcwnffz Plate 04/07/2025 N/A 34108-TLKTJOE NAIL, 6 OR MORE 06/18/2025 N/A Encounters Encounter Location Date Provider Diagnosis [address] [address] 09/26/2024 Flores Black Tinea unguium B35.1 ; Pain in right toe(s) M79.674 and Pain in left toe(s) M79.[address] [address] 01/30/2025 Flores Black Tinea unguium B35.1 ; Pain in right toe(s) M79.674 and Pain in left toe(s) M79.[address] [address] 04/07/2025 Flores Black Tinea unguium B35.1 ; Ingrown nail L60.0 ; Pain in right toe(s) M79.674 and Pain in left toe(s) M79.[address] [address] 06/18/2025 Flores Black Tinea unguium B35.1 ; Pain in right toe(s) M79.674 and Pain in left toe(s) M79.[address] [address] 11/28/2024 Flores Black Assessments Encounter Date Diagnosis (ICD Code) Assessment Notes Treatment Notes Treatment Clinical Notes Section Notes 09/26/2024 Tinea unguium (ICD-10 - B35.1) 09/26/2024 Pain in right toe(s) (ICD-10 - M79.674) 01/30/2025 Tinea unguium (ICD-10 - B35.1) 04/07/2025 Tinea unguium (ICD-10 - B35.1) 04/07/2025 Ingrown nail (ICD-10 - L60.0) 06/18/2025 Tinea unguium (ICD-10 - B35.1) 06/18/2025 Pain in right toe(s) (ICD-10 - M79.674) 06/18/2025 Pain in left toe(s) (ICD-10 - M79.675) 01/30/2025 Pain in right toe(s) (ICD-10 - M79.674) 04/07/2025 Pain in right toe(s) (ICD-10 - M79.674) 09/26/2024 Pain in left toe(s) (ICD-10 - M79.675) 01/30/2025 Pain in left toe(s) (ICD-10 - M79.675) 04/07/2025 Pain in left toe(s) (ICD-10 - M79.675) Plan Of Treatment Pending Test Test Name Order Date X ray : Foot, right 2V 07/04/2011 X ray : Foot, right 2V 08/28/2023 X ray : Foot, left 3V 04/03/2013 X ray : Foot, right 3V 04/03/2013 42953-XLZXPVV NAIL, 6 OR MORE 08/29/2013 47060-UQZVWOU NAIL, 6 OR MORE 06/12/2013 85547-FZKEFET NAIL, 6 OR MORE 11/07/2013 45236-WTLZTMQ NAIL, 6 OR MORE 01/20/2014 02327-KRZXEUI NAIL, 6 OR MORE 07/28/2011 15016-TSPLZRP NAIL, 6 OR MORE 08/22/2011 57028-FUNAOAB NAIL, 6 OR MORE 10/24/2011 53101-NKLXJPI NAIL, 6 OR MORE 12/08/2011 42968-WZYILQS NAIL, 6 OR MORE 01/23/2012 94310-QHBFEAP NAIL, 6 OR MORE 04/09/2012 27827-SCGJQGG NAIL, 6 OR MORE 06/20/2012 43446-HCKBLLM NAIL, 6 OR MORE 09/03/2012 53386-RSPHWYL NAIL, 6 OR MORE 11/12/2012 06976-OPKLPBJ NAIL, 6 OR MORE 01/21/2013 16097-OJTUXYR NAIL, 6 OR MORE 04/03/2013 33633-LKLGBMT NAIL, 6 OR MORE 04/07/2014 36809-XEOILBS NAIL, 6 OR MORE 06/23/2014 92034-QXFFENI NAIL, 6 OR MORE 05/01/2014 63105-OZTYOOK NAIL, 6 OR MORE 09/03/2014 93310-KHSAIRW NAIL, 6 OR MORE 11/10/2014 07359-AUMTCMN NAIL, 6 OR MORE 01/19/2015 21474-JJHWDGC NAIL, 6 OR MORE 02/19/2015 39221-JGDQHPS NAIL, 6 OR MORE 03/19/2015 57831-ZCUBLRR NAIL, 6 OR MORE 05/26/2015 59991-FUCPDDV NAIL, 6 OR MORE 08/04/2015 27331-TJGHZBA NAIL, 6 OR MORE 10/07/2015 59769-ECTHGUD NAIL, 6 OR MORE 02/10/2016 64773-RWKTATG NAIL, 6 OR MORE 04/13/2016 99983-ERFIFZI NAIL, 6 OR MORE 06/23/2016 00872-ZCVIGGX NAIL, 6 OR MORE 08/25/2016 71102-CISSALS NAIL, 6 OR MORE 11/03/2016 06622-JHQCKAE NAIL, 6 OR MORE 01/05/2017 67991-WYBVEWX NAIL, 6 OR MORE 08/28/2023 26546-FWDJULN NAIL, 6 OR MORE 04/24/2023 57646-OCPXSPM NAIL, 6 OR MORE 11/06/2023 89039-UEDNXEF NAIL, 6 OR MORE 01/08/2024 11382-BCOHORS NAIL, 6 OR MORE 05/16/2024 46150-RIUZBXO NAIL, 6 OR MORE 07/25/2024 32605-MFZFBVO NAIL, 6 OR MORE 09/26/2024 14513-TKTRBZU NAIL, 6 OR MORE 01/30/2025 45579-SAZTNRT NAIL, 6 OR MORE 03/14/2024 10154-XAIAECY NAIL, 6 OR MORE 04/07/2025 25415-VSBPEXU NAIL, 6 OR MORE 06/18/2025 29106-KTLBMXR NAIL, 6 OR MORE 05/06/2021 52243-VYUKKNG NAIL, 6 OR MORE 07/08/2021 31693-VSLKVJH NAIL, 6 OR MORE 09/13/2021 04553-JWKVFAE NAIL, 6 OR MORE 11/15/2021 38298-IDNSSQA NAIL, 6 OR MORE 05/30/2022 02327-VYKJVLP NAIL, 6 OR MORE 08/01/2022 42583-TKDCHMS NAIL, 6 OR MORE 10/03/2022 60414-EIGJHYM NAIL, 6 OR MORE 12/12/2022 44238-VKPQUJM NAIL, 6 OR MORE 02/13/2023 93620-TSZCIVB NAIL, 6 OR MORE 01/24/2022 35893-AUOHXOI NAIL, 6 OR MORE 03/28/2022 68004-ZZYMJIQ NAIL, 6 OR MORE 03/09/2017 69859-KNUXHIP NAIL, 6 OR MORE 05/11/2017 97183-JBBAZMO NAIL, 6 OR MORE 07/13/2017 07344-XAMNKNX NAIL, 6 OR MORE 09/14/2017 13078-VZHUGZH NAIL, 6 OR MORE 11/20/2017 22966-KXHMASZ NAIL, 6 OR MORE 02/05/2018 69034-ODQRUJU NAIL, 6 OR MORE 04/09/2018 26898-KWSGWFA NAIL, 6 OR MORE 06/11/2018 05891-SPGDSPT NAIL, 6 OR MORE 08/13/2018 33786-VWIDBRY NAIL, 6 OR MORE 10/18/2018 20472-SBAELSM NAIL, 6 OR MORE 12/31/2018 87658-MNTXJOS NAIL, 6 OR MORE 02/21/2019 47538-CIFQMEG NAIL, 6 OR MORE 07/04/2019 39575-QCWVZUV NAIL, 6 OR MORE 09/05/2019 92138-VYSGFFC NAIL, 6 OR MORE 11/07/2019 02557-DYWTROT NAIL, 6 OR MORE 03/23/2020 49366-EUNPUVM NAIL, 6 OR MORE 04/29/2019 45004-LRQVZBU NAIL, 6 OR MORE 06/01/2020 81498-RSDURVA NAIL, 6 OR MORE 08/03/2020 49409-COFPYUD NAIL, 6 OR MORE 10/19/2020 07067-RCXMVYZ NAIL, 6 OR MORE 12/31/2020 24345-OKJFKXS NAIL, 6 OR MORE 03/04/2021 81023-Kxcsuybc Plate 03/04/2021 56138-Ehpzsgwg Plate 08/03/2020 65835-Lwcbzvdn Plate 08/13/2018 44962-Phnecfpn Plate 03/23/2020 50590-Lysdrqjd Plate 02/21/2019 79535-Uzgpmhxj Plate 02/05/2018 76630-Pxbtmyun Plate 05/11/2017 44579-Ejywttei Plate 05/30/2022 52401-Lhuvvtqp Plate 05/06/2021 61084-Hjxfbfiv Plate 02/13/2023 93732-Pzgfajbu Plate 01/24/2022 74080-Qkxxdvzb Plate 09/13/2021 67085-Cjoqlkzf Plate 07/08/2021 49178-Nzqbdwhb Plate 05/16/2024 31368-Gvpmazrn Plate 04/07/2025 26247-Alzahqyh Plate 03/14/2024 28519-Ylpccfpm Plate 08/28/2023 95103-Zmnejiqv Plate 01/05/2017 52407-Gnxdbait Plate 08/25/2016 76566-Cnspgdsn Plate 06/23/2016 25535-Dsadfqvj Plate 02/10/2016 11241-Fjjrtdpy Plate 10/07/2015 79487-Frengucu Plate 05/26/2015 89990-Vxpyfaur Plate 08/04/2015 53185-Ttoyfsxy Plate 03/19/2015 78990-Cuejnmoh Plate 02/19/2015 04854-Dsllftlg Plate 01/19/2015 35376-Zlppwjvp Plate 11/10/2014 29048-Ytjwlduj Plate 05/01/2014 30904-Qjtwwfps Plate 04/07/2014 26395-Oznjzirq Plate 04/03/2013 40554-Pzjdohmq Plate 01/21/2013 90869-Fiqghown Plate 11/12/2012 02717-Blfkwizz Plate 01/20/2014 46313-Epqoulcu Plate 11/07/2013 74956-Mdjzgtou Plate 08/29/2013 43253-Myukcqkw Plate Each Additional 60494-Yejrkyvo Plate Each Additional 64908-Qzrsnjgb Plate Each Additional 05/2013 83327-Oimtbxhl Plate Each Additional 59087-Gkingati Plate Each Additional 05/2020 99044-Vtufqvve Plate Each Additional 85400-BJA 06/09/2014 24153- Debride <25 sq cm 10/19/2020 57361- Debride <25 sq cm 09/03/2014 40226- Debride <25 sq cm 11/06/2023 06136-RURVQCR SKIN/TISSUE 07/24/2014 87441-ZUMIMZK SKIN/TISSUE 06/23/2014 06556-DONOEJJ SKIN/TISSUE 07/07/2014 98433 I&D ABSCESS- SIMPLE,SINGLE 014 09846 I&D ABSCESS- SIMPLE,SINGLE 014 74772 I&D ABSCESS- SIMPLE,SINGLE 014 03408 I&D ABSCESS- SIMPLE,SINGLE 014 99862 I&D ABSCESS- SIMPLE,SINGLE 013 72220- I&D ABSCESS-COMPLICATED,MULTI 04/201451, J0702- INJECT TENDON ORIGIN/INSER T 01/20/201480441, J0702- INJECT or DRAIN, JOINT/BUR SA 01/20/201453998, S7594-LEFTK/INJECT, JOINT/BURSA 0 04/09/201244334, R6533-NGNFS/INJECT, JOINT/BURSA 0 12/08/2011, L2241-JZALN/INJECT, JOINT/BURSA 0 10/24/201188766, A8935-CYTZY/INJECT, JOINT/BURSA 1 10/28/202294235, F3825-XXRSL/INJECT, JOINT/BURSA 0 11/15/202190164, G7821-VHJUP/INJECT, JOINT/BURSA 0 02/13/202354958, N7046-QUQHZ/INJECT, JOINT/BURSA 0 05/11/201737274, O2782-DVSGM/INJECT, JOINT/BURSA 0 06/12/201973764,C7634-CZR TENDON SHEATH/LIGAMENT 0 06/12/2013 Next Appt Details Provider Name:Flores Lowry , 08/28/2025 02:15:00 PM, [address] [place] [address], [address], Provider Name:Flores Lowry , 10/30/2025 09:30:00 AM, [address] [facility], [place], [address], Insurance Providers Payer Name Payer Address Payer Phone Subscriber Number Group Number Insured Name Patient Relationship to Insured Coverage Start Date Coverage End Date Medicare [facility] [address] [place] [address] [id number] Letty Wood Self - patient is the insured 5 [employer] [address] [place] [address] [id number] Letty Wood Self - patient is the insured Medical (General) History Medical History History ICD Code reflux poor circulation hypertension broken bones back, hip, knee pain asthma Other hammer toe(s) (acquired), left derek t M20.42 Other hammer toe(s) (acquired), right fo ot M20.41 Primary osteoarthritis, left ankle and f oot M19.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
--- OUTSIDE RECORDS SUMMARY | 2025-08-15 12:13 | XMS_ITS | Patient Health Record ---
Author Organization [facility] Address [address], [place] [id number] Care Team Providers Care Pipe Chipper Name Role Phone JORGE DRISCOLL Primary Care Provider ALLERGIES Allergen (clinical drug ingredient) Drug/Non Drug Allergy documented on EMR Reaction Allergy Type Onset Date Status PRESERVATIVE FREE (uncoded) Demerol Allergy 07/12/2009 Active meperidine Demerol Unknown Drug Allergy Active Gabapentin Enacarbil ER EDEMA Drug Allergy Active meperidine Meperidine HCl Demerol Drug Allergy 07/12/2009 Active REASON FOR REFERRAL No Information MEDICATIONS Medication SIG (Take, Route, Frequency, Duration) Notes Start Date End Date Status oxyCODONE HCl 5 MG 1 tab(s) orally ever y 6 hours for 14 days 07/18/2025 Active Lansoprazole 30 MG 1 capsule 1/2 to 1 hour before morning meal Orally Twice a day Active traZODone HCl 50 MG TAKE 1 AND 1/2 TABLE TS BY MOUTH AT BEDTIME NEEDED DIRECTED for 90 Active Dupixent 300 MG/2ML as directed Subcutaneous every 14 days Active fentaNYL 50 MCG/HR 1 patch to skin Transdermal every 72 hours for 30 days 07/16/2025 Active Singulair 10 MG 1 tab(s) orally once a day (in the evening) Active Toprol XL 50 MG 1 tab(s) orally once a day for 90 days Active Albuterol Sulfate HFA 108 (90 Base) MCG/ACT 2 puff(s) inhaled qid prn Active Anusol-HC 2.5 % 1 application Externally Twice a day for 7 days 09/19/2023 Active Trelegy Ellipta 200-62.5-25 MCG/ACT 1 puff Inhalation Once a day Active Nystop 894165 UNIT/GM 1 application Externally Twice a day for 30 days 07/15/2024 Active DULoxetine HCl 60 MG 1 capsule Orally On ce a day for 90 days Active Pregabalin 75 MG 1 capsule Orally 2 times daily for 90 day(s) 05/16/2025 Active Nystatin 317514 UNIT/ML 5 mL Mouth/Throat Four times a day for 14 day(s) 12/20/2024 Active Potassium Chloride ER 10 MEQ 1 tablet with food Orally Once a day for 90 days Active amLODIPine Besylate 5 MG 1 tablet Orally Once a day Active Daliresp 500 MCG 1 tab(s) orally once a day on hold until Pulm end of 07/2025 Active Losartan Potassium-HCTZ 100-25 MG 1 tablet Orally Once a day 12/30/2024 Active IMMUNIZATIONS Vaccine Route Administration Date Status Comme nts Influenza, Fluzone HD 65+ IM Intramuscular 07/15/2024 Admi nistered Influenza, Fluzone HD 65+ IM Intramuscular 07/18/2025 Admi nistered Influenza, Fluzone Quad IM Intramuscular 10/02/2015 Admini stered Pfizer COVID-19,mRNA, LNP-S, PF, 30mcg/0.3mL dose Unknown 11/22/2020 Administered Pfizer COVID-19,mRNA, LNP-S, PF, 30mcg/0.3mL dose Unknown 12/14/2020 Administered Pneumococcal Prevnar 13 IM Intramuscular 08/16/2005 Admini stered Pneumococcal Prevnar 13 IM Intramuscular 07/19/2012 Admini stered Pneumococcal Prevnar 13 Unknown 09/07/2015 Administered Pneumococcal, PPV 23 Unknown 08/16/2005 Administered Pneumococcal, PPV 23 Unknown 07/19/2012 Administered Pneumococcal,Prevnar 13, PEDS STATE SUPPLIED IM Intramuscular 10/02/2015 Administered Zoster recombinant Unknown 08/28/2013 Administered SOCIAL HISTORY Tobacco Use: Social History Observation [...] Interpretation Negative Section Notes: quit smoking 2001 quit smoking 2001 quit smoking 2001 quit smoking 2001 quit smoking 2001 quit smoking 2001 quit smoking 2001 quit smoking 2001 quit smoking 2001 quit smoking 2001 quit smoking 2001 quit smoking 2001 quit smoking 2001 quit smoking 2001 PROBLEMS Problem Type ICD Code Onset Dates Problem Status W/U Status Risk SNOMED Code Notes Problem Pulmonary nodule (R91.1) Active confirmed 486786119 Problem Personal history of colonic polyps (Z86.010) Active confirmed 926399217 Problem Barretts esophagus (K22.70) Active confirmed Barretts esophagus (516741244) Problem Chronic pain syndrome (G89.4) Active confirmed 844064734 Problem Spinal stenosis, lumbosacral region (M48.07) Active confirmed 142347607 Problem Gastroesophageal reflux disease without esophagitis (K21.9) Active confirmed 366419282 Problem Chronic obstructive pulmonary disease, unspecified COPD type (J44.9) Active confirmed 06286762 Problem Primary osteoarthritis of left knee (M17.12) Active confirmed 836978508380524 Problem Tubular adenoma of colon (D12.6) Active confirmed 126241038 Problem Vitreous floaters of both eyes (H43.393) Active confirmed 296509524623984 Problem Irritable bowel syndrome with both constipation and diarrhea (K58.2) Active confirmed 29393274 Problem Persistent depressive disorder (F34.1) Active confirmed 0219672030 Problem Degeneration of intervertebral disc of lumbar region with discogenic back pain and lower extremity pain (M51.362) Active confirmed 60176965 Problem Essential (primary) hypertension (I10) 10/12/20 Active confirmed Essential hypertension (91437323) Problem Polyosteoarthritis, unspecified (M15.9) 10/12/20 Active confirmed Osteoarthritis (960054176) VITAL SIGNS Blood pressure diastolic 60 mm Hg 07/18/2025 Height 58.25 in 07/18/2025 Blood pressure systolic 116 mm Hg 07/18/2025 Weight 179.0 lbs 07/18/2025 BMI 37.09 kg/m2 07/18/2025 Encounters Encounter Location Date Provider Diagnosis [facility] [address] [place] [address] 08/20/2024 JORGE DRISCOLL Chronic pain syndrom e G89.4 [facility] [address] [place] [address] 09/24/2024 JORGE DRISCOLL Essential (primary) hypertension I10 ; Primary osteoarthritis of left knee M17.12 ; Degeneration of intervertebral disc of lumbar region with discogenic back pain and lower extremity pain M51.362 and Chronic obstructive pulmonary disease, unspecified COPD type J44.9 [facility] [address] [place] [phone] 10/01/2024 JORGE DRISCOLL Degeneration of intervertebral disc of lumbar region with discogenic back pain and lower extremity pain M51.362 [facility] [address] [place] [phone] 11/18/2024 JORGE DAVISFORD Degeneration of intervertebral disc of lumbar region with discogenic back pain and lower extremity pain M51.362 [facility] [address] [place] [phone] 12/03/2024 JORGE DAVISFORD Degeneration of intervertebral disc of lumbar region with discogenic back pain and lower extremity pain M51.362 [facility] [address] [place] [phone] 12/13/2024 JORGE DRISCOLL Essential (primary) hypertension I10 [facility] [address] [place] [phone] 12/20/[address] [facility] [address] [place] [phone] 12/26/2024 JORGE DRISCOLL Degeneration of intervertebral disc of lumbar region with discogenic back pain and lower extremity pain M51.362 [facility] [address] [place] [phone] 12/30/2024 JORGE DAVISFORD Chronic obstructive pulmonary disease, unspecified COPD type J44.9 ; Essential (primary) hypertension I10 ; Chronic cough R05.3 and Trochanteric bursitis, right hip M70.61 [facility] [address] [place] [phone] 02/04/[address] [facility] [address] [place] [phone] 02/04/2025 JORGE R[facility] Essential (primary) hypertension I10 ; Chronic obstructive pulmonary disease, unspecified COPD type J44.9 ; Spinal stenosis, lumbosacral region M48.07 and Chronic pain syndrome G89.4 [facility] [address] [place] [phone] 02/18/2025 JORGE DRISCOLL Degeneration of intervertebral disc of lumbar region with discogenic back pain and lower extremity pain M51.362 [facility] [address] [place] [address] 03/05/2025 [facility] Spinal stenosis, lumbosacral region M48.07 [facility] [address] [place] [address] 03/11/2025 [facility] [address] [place] [phone] 04/10/2025 [facility] Degeneration of intervertebral disc of lumbar region with discogenic back pain and lower extremity pain M51.362 [facility] [address] [place] [address] 04/15/2025 [facility] Essential (primary) hypertension I10 ; Gastroesophageal reflux disease without esophagitis K21.9 ; Spinal stenosis, lumbosacral region M48.07 ; Chronic obstructive pulmonary disease, unspecified COPD type J44.9 ; Tachycardia R00.0 and Encounter for general adult medical examination with abnormal findings Z00.01 [facility] [address] [phone] 04/15/2025 JOHN BEDFORD Medicare annual well ness visit, subsequent Z00.00 [facility] [address] [place] [phone] 04/23/2025 [facility] [address] [phone] 04/23/2025 [facility] [address] [phone] 04/23/2025 [facility] Essential (primary) hypertension I10 and Chronic obstructive pulmonary disease, unspecified COPD type J44.9 [facility] [address] [place] [phone] 04/28/2025 [facility] Spinal stenosis, lumbosacral region M48.07 [facility] [address] [place] [phone] 05/16/2025 [facility] Spinal stenosis, lumbosacral region M48.07 [facility] [address] [place] [phone] 06/05/2025 [facility] Spinal stenosis, lumbosacral region M48.07 [facility] [address] [place] [phone] 07/16/2025 JORGE DAVISFORD Spinal stenosis, lumbosacral region M48.[address] [phone] 07/18/2025 JORGE DAVISFORD Essential (primary) hypertension I10 ; Chronic obstructive pulmonary disease, unspecified COPD type J44.9 ; Spinal stenosis, lumbosacral region M48.07 ; Encounter for administration of vaccine Z23 and Persistent depressive disorder F34.[address] [phone] 07/18/2025 JORGE DAVISFORD Spinal stenosis, lumbosacral region M48.07 ASSESSMENTS Encounter Date Diagnosis Assessment Notes Treatment Notes Treatment Clinical Notes Section Notes 09/24/2024 Essential (primary) hypertension (ICD-10 - I10) 1. Osteoarthritis left knee: Stable post knee replacement. Follow with orthopedics 2. Hypertension: Well-controlled on present therapy. No changes made today 3. Lumbar degenerative disc disease: Stable. Continue periodic injection therapy with Dr. Roman. Renewed Lyrica and oxycodone today. Continues on fentanyl patches as well 4. COPD: Stable on current bronchodilators. Follow closely with pulmonary 09/24/2024 Primary osteoarthritis of left knee (ICD-10 - M17.12) 1. Osteoarthritis left knee: Stable post knee replacement. Follow with orthopedics 2. Hypertension: Well-controlled on present therapy. No changes made today 3. Lumbar degenerative disc disease: Stable. Continue periodic injection therapy with Dr. Roman. Renewed Lyrica and oxycodone today. Continues on fentanyl patches as well 4. COPD: Stable on current bronchodilators. Follow closely with pulmonary 08/20/2024 Chronic pain syndrome (ICD-10 - G89.4) 12/30/2024 Essential (primary) hypertension (ICD-10 - I10) 1. COPD: Stable on present bronchodilators: Question cough related to lisinopril as below. Will trial changing 2. Hypertension: Well-controlled on present therapy. Will change lisinopril to losartan as below and reassess in 4 weeks 3. Chronic cough: DONNY inhibitor could be contributing so we will remove it for the time being and see if cough improves with switch to losartan 100/25 mg 4. Right trochanteric bursitis: Patient will reach out to me I was. If they refuse to do this type of injection may need to return to spine and sport 12/30/2024 Chronic obstructive pulmonary disease, unspecified COPD type (ICD-10 - J44.9) 1. COPD: Stable on present bronchodilators: Question cough related to lisinopril as below. Will trial changing 2. Hypertension: Well-controlled on present therapy. Will change lisinopril to losartan as below and reassess in 4 weeks 3. Chronic cough: DONNY inhibitor could be contributing so we will remove it for the time being and see if cough improves with switch to losartan 100/25 mg 4. Right trochanteric bursitis: Patient will reach out to me I was. If they refuse to do this type of injection may need to return to spine and sport 10/01/2024 Degeneration of intervertebral disc of lumbar region with discogenic back pain and lower extremity pain (ICD-10 - M51.362) 11/18/2024 Degeneration of intervertebral disc of lumbar region with discogenic back pain and lower extremity pain (ICD-10 - M51.362) 12/03/2024 Degeneration of intervertebral disc of lumbar region with discogenic back pain and lower extremity pain (ICD-10 - M51.362) 12/13/2024 Essential (primary) hypertension (ICD-10 - I10) 12/26/2024 Degeneration of intervertebral disc of lumbar region with discogenic back pain and lower extremity pain (ICD-10 - M51.362) 04/15/2025 Essential (primary) hypertension (ICD-10 - I10) 1. Hypertension: Significantly elevated today. Took her meds late and question whether this is a factor but she will return next week to recheck before adjusting further 2. Gastroesophageal reflux/Evonne's esophagus : Stable on current lansoprazole. Continue same 3. Lumbar spinal stenosis: Continues with periodic injections with Dr. Roman. Maintain current pain medication which she is using as directed without adverse effect 4. COPD: Working with Dr. Cline. Recent change to Dupixent. Will follow on current bronchodilators. She had unknowingly been off Singulair and we will resume 5. Tachycardia: Question Dupixent related. Improved over the course of her visit. No evidence of abnormal rhythm on EKG. Will follow 6. Routine healthcare maintenance: Aged out of colonoscopies. He wishes to connect with Dr.Haag Ibrahim update her [facility] exam and mammogram. We will update fasting blood work 04/15/2025 Gastroesophageal reflux disease without esophagitis (ICD-10 - K21.9) 1. Hypertension: Significantly elevated today. Took her meds late and question whether this is a factor but she will return next week to recheck before adjusting further 2. Gastroesophageal reflux/Evonne's esophagus : Stable on current lansoprazole. Continue same 3. Lumbar spinal stenosis: Continues with periodic injections with Dr. Roman. Maintain current pain medication which she is using as directed without adverse effect 4. COPD: Working with Dr. Cline. Recent change to Dupixent. Will follow on current bronchodilators. She had unknowingly been off Singulair and we will resume 5. Tachycardia: Question Dupixent related. Improved over the course of her visit. No evidence of abnormal rhythm on EKG. Will follow 6. Routine healthcare maintenance: Aged out of colonoscopies. He wishes to connect with Dr.Haag Ibrahim update her [facility] exam and mammogram. We will update fasting blood work 04/15/2025 Medicare annual wellness visit, subsequent (ICD-10 - Z00.00) AWV form reviewed with pt 02/04/2025 Essential (primary) hypertension (ICD-10 - I10) 1. Hypertension: Stable with change to losartan HCT. Will continue same regimen 2. COPD: Following closely with pulmonary. Continue current bronchodilators 3. Lumbar spinal stenosis: Using fentanyl patches as directed without adverse effect. Will continue same renewed today 02/04/2025 Chronic obstructive pulmonary disease, unspecified COPD type (ICD-10 - J44.9) 1. Hypertension: Stable with change to losartan HCT. Will continue same regimen 2. COPD: Following closely with pulmonary. Continue current bronchodilators 3. Lumbar spinal stenosis: Using fentanyl patches as directed without adverse effect. Will continue same renewed today 02/18/2025 Degeneration of intervertebral disc of lumbar region with discogenic back pain and lower extremity pain (ICD-10 - M51.362) 03/05/2025 Spinal stenosis, lumbosacral region (ICD-10 - M48.07) 04/10/2025 Degeneration of intervertebral disc of lumbar region with discogenic back pain and lower extremity pain (ICD-10 - M51.362) 04/23/2025 Essential (primary) hypertension (ICD-10 - I10) [...] Dr. Cline and has an echocardiogram pending 07/18/2025 Essential (primary) hypertension (ICD-10 - I10) [...] on current duloxetine. Will maintain present dosing 04/28/2025 Spinal stenosis, lumbosacral region (ICD-10 - M48.07) 05/16/2025 Spinal stenosis, lumbosacral region (ICD-10 - M48.07) 06/05/2025 Spinal stenosis, lumbosacral region (ICD-10 - M48.07) 07/16/2025 Spinal stenosis, lumbosacral region (ICD-10 - M48.07) 07/18/2025 Spinal stenosis, lumbosacral region (ICD-10 - M48.07) 07/18/2025 Spinal stenosis, lumbosacral region (ICD-10 - [...] on current duloxetine. Will maintain present dosing 02/04/2025 Spinal stenosis, lumbosacral region (ICD-10 - M48.07) 1. Hypertension: Stable with change to losartan HCT. Will continue same regimen 2. COPD: Following closely with pulmonary. Continue current bronchodilators 3. Lumbar spinal stenosis: Using fentanyl patches as directed without adverse effect. Will continue same renewed today 04/15/2025 Spinal stenosis, lumbosacral region (ICD-10 - M48.07) 1. Hypertension: Significantly elevated today. Took her meds late and question whether this is a factor but she will return next week to recheck before adjusting further 2. Gastroesophageal reflux/Evonne's esophagus : Stable on current lansoprazole. Continue same 3. Lumbar spinal stenosis: Continues with periodic injections with Dr. Roman. Maintain current pain medication which she is using as directed without adverse effect 4. COPD: Working with Dr. Cline. Recent change to Dupixent. Will follow on current bronchodilators. She had unknowingly been off Singulair and we will resume 5. Tachycardia: Question Dupixent related. Improved over the course of her visit. No evidence of abnormal rhythm on EKG. Will follow 6. Routine healthcare maintenance: Aged out of colonoscopies. He wishes to connect with Dr.Haag Ibrahim update her [facility] exam and mammogram. We will update fasting blood work 12/30/2024 Chronic cough (ICD-10 - R05.3) 1. COPD: Stable on present bronchodilators: Question cough related to lisinopril as below. Will trial changing 2. Hypertension: Well-controlled on present therapy. Will change lisinopril to losartan as below and reassess in 4 weeks 3. Chronic cough: DONNY inhibitor could be contributing so we will remove it for the time being and see if cough improves with switch to losartan 100/25 mg 4. Right trochanteric bursitis: Patient will reach out to me I was. If they refuse to do this type of injection may need to return to spine and sport 09/24/2024 Degeneration of intervertebral disc of lumbar region with discogenic back pain and lower extremity pain (ICD-10 - M51.362) 1. Osteoarthritis left knee: Stable post knee replacement. Follow with orthopedics 2. Hypertension: Well-controlled on present therapy. No changes made today 3. Lumbar degenerative disc disease: Stable. Continue periodic injection therapy with Dr. Roman. Renewed Lyrica and oxycodone today. Continues on fentanyl patches as well 4. COPD: Stable on current bronchodilators. Follow closely with pulmonary 07/18/2025 Encounter for administration of vaccine (ICD-10 [...] on current duloxetine. Will maintain present dosing 02/04/2025 Chronic pain syndrome (ICD-10 - G89.4) 1. Hypertension: Stable with change to losartan HCT. Will continue same regimen 2. COPD: Following closely with pulmonary. Continue current bronchodilators 3. Lumbar spinal stenosis: Using fentanyl patches as directed without adverse effect. Will continue same renewed today 04/15/2025 Chronic obstructive pulmonary disease, unspecified COPD type (ICD-10 - J44.9) 1. Hypertension: Significantly elevated today. Took her meds late and question whether this is a factor but she will return next week to recheck before adjusting further 2. Gastroesophageal reflux/Evonne's esophagus : Stable on current lansoprazole. Continue same 3. Lumbar spinal stenosis: Continues with periodic injections with Dr. Roman. Maintain current pain medication which she is using as directed without adverse effect 4. COPD: Working with Dr. Cline. Recent change to Dupixent. Will follow on current bronchodilators. She had unknowingly been off Singulair and we will resume 5. Tachycardia: Question Dupixent related. Improved over the course of her visit. No evidence of abnormal rhythm on EKG. Will follow 6. Routine healthcare maintenance: Aged out of colonoscopies. He wishes to connect with Dr.Haag Ibrahim update her [facility] exam and mammogram. We will update fasting blood work 12/30/2024 Trochanteric bursitis, right hip (ICD-10 - M70.61) 1. COPD: Stable on present bronchodilators: Question cough related to lisinopril as below. Will trial changing 2. Hypertension: Well-controlled on present therapy. Will change lisinopril to losartan as below and reassess in 4 weeks 3. Chronic cough: DONNY inhibitor could be contributing so we will remove it for the time being and see if cough improves with switch to losartan 100/25 mg 4. Right trochanteric bursitis: Patient will reach out to me I was. If they refuse to do this type of injection may need to return to spine and sport 09/24/2024 Chronic obstructive pulmonary disease, unspecified COPD type (ICD-10 - J44.9) 1. Osteoarthritis left knee: Stable post knee replacement. Follow with orthopedics 2. Hypertension: Well-controlled on present therapy. No changes made today 3. Lumbar degenerative disc disease: Stable. Continue periodic injection therapy with Dr. Roman. Renewed Lyrica and oxycodone today. Continues on fentanyl patches as well 4. COPD: Stable on current bronchodilators. Follow closely with pulmonary 04/15/2025 Tachycardia (ICD-10 - R00.0) 1. Hypertension: Significantly elevated today. Took her meds late and question whether this is a factor but she will return next week to recheck before adjusting further 2. Gastroesophageal reflux/Evonne's esophagus : Stable on current lansoprazole. Continue same 3. Lumbar spinal stenosis: Continues with periodic injections with Dr. Roman. Maintain current pain medication which she is using as directed without adverse effect 4. COPD: Working with Dr. Cline. Recent change to Dupixent. Will follow on current bronchodilators. She had unknowingly been off Singulair and we will resume 5. Tachycardia: Question Dupixent related. Improved over the course of her visit. No evidence of abnormal rhythm on EKG. Will follow 6. Routine healthcare maintenance: Aged out of colonoscopies. He wishes to connect with Dr.Haag Ibrahim update her [facility] exam and mammogram. We will update fasting blood work 07/18/2025 Persistent depressive disorder (ICD-10 - F34.1) [...] on current duloxetine. Will maintain present dosing 04/15/2025 Encounter for general adult medical examination with abnormal findings (ICD-10 - Z00.01) 1. Hypertension: Significantly elevated today. Took her meds late and question whether this is a factor but she will return next week to recheck before adjusting further 2. Gastroesophageal reflux/Evonne's esophagus : Stable on current lansoprazole. Continue same 3. Lumbar spinal stenosis: Continues with periodic injections with Dr. Roman. Maintain current pain medication which she is using as directed without adverse effect 4. COPD: Working with Dr. Cline. Recent change to Dupixent. Will follow on current bronchodilators. She had unknowingly been off Singulair and we will resume 5. Tachycardia: Question Dupixent related. Improved over the course of her visit. No evidence of abnormal rhythm on EKG. Will follow 6. Routine healthcare maintenance: Aged out of colonoscopies. He wishes to connect with Dr.Haag Ibrahim update her [facility] exam and mammogram. We will update fasting blood work PLAN OF TREATMENT Pending Test Test Name Order Date RAST mold panel(BRL only) 12/24/2013 IgA,IgG,and IgM 12/24/2013 Future Test Test Name Order Date BASIC METABOLIC PANEL 10/02/2015 CBC W/ AUTOMATED DIFF 12/30/2016 LIPID PANEL 12/20/2023 CBC (COMPLETE BLOOD COUNT) 12/20/2023 COMPREHENSIVE METABOLIC PANEL 12/20/2023 Next Appt Details Provider Name:JORGE DRISCOLL , 08/19/2025 11:00:00 AM, [address] [place] [address], [phone], Provider Name:JORGE DAVISFORD , 10/29/2025 11:15:00 AM, [address] [place] [address], [phone], Insurance Providers Payer Name Payer Address Payer Phone Subscriber Number Group Number Insured Name Patient Relationship to Insured Coverage Start Date Coverage End Date MEDICARE [employer] [address] [place] [address] [id number] KENN GRIER Self - patient is the insured 5 [employer] [address] [place] [address] [phone] [id number] KENN GRIER Self - patient is the insured [facility] [address] [place] [phone] [id number] KENN GRIER Self - patient is the insured 3 MEDICAL (GENERAL) HISTORY Medical History History ICD Code Arthritis Gastroesophageal reflux disease (GERD) osteoarthritis headaches hypertension bilateral hearing aids Barretts Colonoscopy 08/26/2016 - Lar ge 3x4cm L colon polyp removed, endoscopic clip was placed. This polyp was likely the cause of pt's iron def. The 1.5 & 3cm polyps were removed as well. Sig tics. 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 Tubular adenoma & tubulovillous adenoma in the sigmoid colon. EGD 02/28/2017 - Mod nodular gastritisin the antrum. Path: Small bowel mucosa w/preserved villi & without pathologic change. Reactive gastropathy, mild. Esophageal squamous & gastric cardia-type mucosa w/mixed mucous/oxyntic glands & mild chronic inflammation. Colonoscopy 02/28/2017 - Div erticulosis. Path: Tubular adenoma in the sig colon & in the L colon. Colonoscopy 09/23/2019 - sleep Apnea CPAP 10 cm H20 [facility] Belinda Soria [phone] Surgical History Surgery Date(Month/Year) hysterectomy Triimalleolar fracture left ankle - repa ir 1986 total knee replacement LEFT 08/09/24 Bilateral Carpal Tunnel Release 2005 arthroscopy Left meniscal tear 2004 Left Rotator Cuff Repair 2004 Right Rotator cuff repair 2007 Right Total knee replacement 2008 Lumbar laminectomy 1978
--- OUTSIDE RECORDS SUMMARY | 2025-08-15 12:14 | XMS_ITS | Patient Health Record ---
Author Organization [facility] Address [address] [place] [phone] Care Team Providers Care Retail Client Solutions Consultant Name Role Phone Tej David Unavailable [phone] Reason For Referral No Information Plan Of Treatment No Information
--- OUTSIDE RECORDS SUMMARY | 2025-08-15 12:14 | XMS_ITS | Data Portability ---
Author Organization [place] - [facility], Allergy Address [address] [place] [address] Care Team Providers Care Fur Floor Worker Name Role Phone JORGE DRISCOLL Primary Care Provider Assessment No assessment recorded. Plan of Treatment Reminders Order Date Submit Date Provider Last Modified By Organization Details Last Modified Time Details Appointments None recorded. Lab None recorded. Referral None recorded. Procedures None recorded. Surgeries None recorded. Imaging MRI, brain + internal auditory canal, w/wo contrast - MRI, BRAIN + INTERNAL AUDITORY CANAL, W/WO CONTRAST 2023 024 [email or web address] [facility] ([facility]), [address] [place], [address], 16:05:51 Medication Orders None recorded. Patient TargetsNo targets recorded. Patient InstructionsNo instructions recorded. Reason for Referral None Reported. Results Created Date Observation Date Name Description Value Unit Range Abnormal Flag Note LastModifiedBy Organization Detail LastModifiedTime 08/05/2008/01/2024 audio gram No observ ation record ed. [email or web address] Not Available 2023 15:27:07 08/06/20 24 12/04/2021 CT, brain , w/o contr ast No observ ation record ed. [email or web address] Not Available 2023 11:35:07 08/07/20 24 01/21/2016 audio gram No observ ation record ed. [email or web address] Not Available 07/17 16:42:57 09/24/20 24 09/21/2024 MRI, brain + brain stem, w/wo contr ast [facility] Access ion Number : [id number] Loyd oakes Name: Pro Vargas Record Number : [id number] Date of : 1944 Date of Exam: 2023 Referr salas Physic gee: Ned Santos re Ear Nose [address] [place] [address] Exam: MR Brain (C-/C+ ) CPT 69936 Room Descri ption: [place] Siem Espr 1.5 MR Brain (C-/C+ ) CPT 33538 INDICA TION / CLINIC AL QUESTI ON: Reason For Exam: H90.3 - Sensor ineura l hearin g loss, bilate ral, , MRI, BRAIN + DOOR INSTALLER AL AUDITO RY CANAL, W/WO CONTRA ST\E E\[facility] (MRI, BRAIN + DOOR INSTALLER AL AUDITO RY CANAL, W/WO CONTRA ST), Clinic al Indica tion: Asymme tric sensor ineura l hearin g loss Reason For Exam: H90.3 - Sensor ineura l hearin g loss, bilate ral, , MRI, BRAIN + DOOR INSTALLER AL AUDITO RY CANAL, W/WO CONTRA ST\E E\[facility] (MRI, BRAIN + DOOR INSTALLER AL AUDITO RY CANAL, W/WO CONTRA ST), Clinic al Indica tion: Asymme tric sensor ineura l hearin g loss TECHNI QUE: MRI of the brain with attent ion to the international marketing executive al audito ry canals was perfor med [...] or abnorm al enhanc ement in the international marketing executive al audito ry canals or cerebe llopon javan angles . Course and calibe r of the 7th and 8th crania l nerves is normal bilate rally. Fluid signal is preser karey in the inner ear struct ures bilate rally. [place] loops protru sions at the bilate ral international marketing executive al audito ry canals . BRAIN and [...] soft tissue s are unrema rkable . [facility] catara ct surger y. Elonga tianna globes with probab le staphy enzo. Trace scatte red parana camacho sinus mucosa l thicke arianne. Mucus retent ion cysts in the [facility] maxill stephanie sinuse s. BONES: Visual ized marrow signal is preser karey. IMPRES ODILON: No retroc ochlea r abnorm ality to explai n the patien t?s sympto ms. Electr onical ly Signed By: Valerie [email or web address] [facility] ([facility]) [address] [place], [address], 09/25/2024 12:28:47 Result Notes Documentation Provider Name and Address Organization Details Recorded Time Mri, Brain + Brain Stem, W/wo Contrast : [facility] Accession Number: [id number] Patient Name: Letty Wood Date of : 1945 Date of Exam: 09-21-2024 Referring Physician: Beronica Santos Ear N[facility] [address] [place] [address] Exam: MR Brain (C-/C+) CPT 23291 [facility] Brain (C-/C+) CPT 27187 INDICATION / CLINICAL QUESTION: Reason For Exam: [...] lal [place] - [facility] 09/25/2024 12:28:47 Problems Name Problem SNOMED Code Status Onset Date Resolution Date Notes Provider Name and Address Organization Details Recorded Time Sensorine ural hearing loss 69793469 Active 2015 Sensorine ural hearing loss, unilatera l, right ear, with unrestric tianna hearing on the contralat eral side; Note: Date Diagnosed : 03/29/2016 11:14 AM (H90.41) Not Available [facility] 4 03:28:16 Mixed conductiv e and sensorine ural hearing loss of left ear 60307064382 107 Active 2015 Mixed conductiv e and sensorine ural hearing loss, unilatera l, left ear, with unrestric tianna hearing on the contralat eral side; Note: Date Diagnosed : 03/29/2016 11:14 AM (H90.72) Not Available [facility] 4 03:28:16 Otosclero sis 49600966 Active 2015 Unspecifi ed otosclero sis, left ear; Note: Date Diagnosed : 03/29/2016 11:14 AM (H80.92) Not Available [facility] 4 03:28:16 Sensorine ural hearing loss of bilateral ears 127947355 Active 2023 ELIA ASENCIO MA, CCC-A [address],LE[place] [facility], [place], [address] , [facility] - [facility] 4 16:12:38 Benign paroxysma l positiona l vertigo 615748032 Active 2023 BERONICA SANTOS MD [address],[place] [address], [place], [address] , [facility] - [facility] 4 16:38:14 Unsteady when walking 06148542 Active 2023 BERONICA SANTOS MD [address],[place] [address], [place], [place], [address] , [facility] - [facility] 4 16:38:27 Problem Notes None recorded. Procedures Surgical History Date Name Laterality Status Provider Name and Address Organization Details Recorded Time 08/01/2024 Comp Audio with Tymps - 15803 & 56459 completed ELIA ASENCIO MA, [facility] [address],[place] [address], [place], [address], [facility] - [facility] 08/01/2024 16:12:17 Imaging Results None recorded. Procedure Notes None recorded. Medical Equipment None Reported. Allergies Allergen ID Allergen Name Allergen Category Reaction Reaction Severity Criticality Documentation Date Start Date Code Code System Note Provider Name and Address Organization Details Recorded Time 002721 meperidin e hydrochlo ride medicatio n other Not available Not available 02/27/2024 40878 5 RxNorm React ion: unkno wn, unspe shadye d;; Not Available [facility] 01:24:51 Medications Name Sig Start Date Stop [...] 24 hr 2014 active Medicati on ID: 215215 D uration Value: 90 Brand Name: metoprol [...] 10 mg tablet active Medicati on ID: 230263 D uration Value: 90 Brand Name: monteluk [...] mg tablet 08/01 completed Medicati on ID: 297440 D uration Value: 30 Brand Name: lorazepa [...] hours as needed active Medicati on ID: 936718 B rand Name: albutero l sulfate Send [...] al patch 08/01 completed Medicati on ID: 555441 D uration Value: 30 Brand Name: fentanyl [...] HFA aerosol inhaler active Medicati on ID: 265407 D uration Value: 90 Brand Name: Symbicor t Send Method: E-Prescr ibed Sub s Allowed: subs OK Medic ationGen ericName : Symbicor t Not Available Not Available Not Available Calcium 600 + D(3) 600 mg-10 mcg (400 unit) tablet active Medicati on ID: 336570 B rand Name: Calcium 600 + D(3) Sen d Method: E-Prescr ibed Sub s Allowed: subs OK Medic ationGen ericName : Calcium 600 + D(3) Not Available Not Available Not Available Daliresp 500 mcg tablet 2013 active Medicati on ID: 730178 D uration Value: 90 Brand Name: Daliresp Send Method: E-Prescr ibed Sub s Allowed: subs OK Speci al Instruct ion: TAKE 1 TABLET BY MOUTH ONCE A DAY FOR 90 DAYS. Me dication GenericN shiraz: Daliresp Not Available Not Available Not Available Spiriva Respimat 2.5 mcg/actua tion solution for inhalatio n 2014 active Medicati on ID: 092542 D uration Value: 90 Brand Name: Spiriva [...] Details Last Updated DateTime 08/01/2024 154.94 cm 31487.63 g Domi Gaines [place] - [facility] 08/01/2024 16:22:34 Social History None recorded. Functional Status None recorded. Mental Status None recorded. Family History Nothing Reported. Medical History Condition Response Hypertension Y Asthma Y Gynecological HistoryNo gynecological history recorded. Obstetrics History GPAL:G 0 P 0 0 0 0 Past Encounters Encounter ID Performer Location Encounter Start Date Encounter Closed Date Diagnosis/Indication Diagnosis SNOMED-CT Code Diagnosis ICD10 Code Diagnosis IMO Codes Diagnosis Note [id number] BERONICA SANTOS MD [facility] [address] [address] 08/01/2024 14:53:13 08/01/2024 16:46:49 Benign paroxysmal positional vertigo 036211896 H81.11 Patient with episodic positional ly induced vertigo. Parth-Hallpi ke was positive for vertigo and rotary [...] for further referrals. Unsteady when walking 22 681181 R26.89 The BPPV is unlikely to be related to her unsteadine ss while ambulatory . This is much more likely to be related to her chronic lower extremity and lower back issues. Recommend continuing working with her orthopedis t and neurologis t in this regard. Sensorineu ral hearing loss of bilateral ears 655875256 H90.3 Audiologic al evaluation results:Ri ght ear:Normal [...] arrange telehealth visit to discuss the results. [id number] ELIA ASENCIO MA, CCC-A [facility] [address] [place] [address] 08/01/2024 16:11:06 08/05/2024 09:08:43 Sensorineural hearing loss of bilateral ears 659407595 H90.3 Audiologic al evaluation results:Ri ght ear:Normal [...] Guarantor Name 08/01/2024 1 [place] [employer] [employer] Letty Wood [id number] Letty Wood 08/01/2024 3 [place] Letty Wood [id number] Letty Wood 08/01/2024 2 [place] [id number] Letty Wood [id number] Letty Wood Notes Date Note Type Note Provider Name and Address Organization Details Recorded Time 08/01/2024 text/html 79-year-old female who I evaluated back in 2016 for hearing loss. She had a mild conductive hearing loss on the left ear of unclear etiology. Amplification was recommended at that that time due to the mild nature of the conductive hearing loss. Unfortunately her old audiogram was not available for my review today. Patient currently has hearing aids that were dispensed back in 2016 from [facility] audiology. The devices were last evaluated [...] neurology in this regard. BERONICA SANTOS MD [address] [place] [address], [phone], [facility] - [facility] 08/01/2024 17:04:30 OBGyn Episode No OBEpisode recorded.
[2025-08-15 12:56] VITALS: PULSE 89; O2SAT 95
== END 2025-08-15 11:21 | disposition home or self-care (01) ==
LOC: HO.HPS 10:44
PROVIDERS: PCP Internal Medicine; Visit Provider Hospitalist
DX: J45.50 Severe persistent asthma, uncomplicated (principal); J30.9 Allergic rhinitis, unspecified; R91.8 Other nonspecific abnormal finding of lung field; F51.01 Primary insomnia; J40 Bronchitis, not specified as acute or chronic; R06.09 Other forms of dyspnea; J44.0 Chronic obstructive pulmonary disease with (acute) lower respiratory infection
CPT/HCPCS: 99214; G2211

== ENCOUNTER → 2025-08-15 10:44 | Outpatient (BNVA) | payer MEDICARE, MEDICAID, SELFPAY | PROVIDERS: PCP Internal Medicine; Visit Provider Hospitalist | DX: J45.50 Severe persistent asthma, uncomplicated (principal); J30.9 Allergic rhinitis, unspecified; Z87.891 Personal history of nicotine dependence; R06.09 Other forms of dyspnea; F51.01 Primary insomnia; Z99.81 Dependence on supplemental oxygen; R05.3 Chronic cough; R91.8 Other nonspecific abnormal finding of lung field | CPT/HCPCS: 94618; 99212 ==